=== PATIENT | male | born 1970 | race Caucasian/White ===

== ENCOUNTER 2018-12-27 07:34 | Day surgery (SDC) | payer MEDICAID ==
[2018-12-23 15:03] VITALS: BMI 20.9
[~2018-12-27 07:34] MED LIST: LACTATED RINGERS 1,000 ML IV SCH; LIDOCAINE 1% 20 ML VIAL (10MG/ML) FOR IV START INTRADERMA PRN
[2018-12-27 07:58] VITALS: TEMP 98
[2018-12-27] MEDS ORDERED: LIDOCAINE 1% 20 ML VIAL (10MG/ML) FOR IV START INTRADERMA ONE (07:58)
[2018-12-27] MEDS ORDERED: LACTATED RINGERS 1,000 ML IV ONE (07:58)
[2018-12-27] MEDS ORDERED: PROPOFOL 10 MG/ML 20 ML VIAL IV ONE (08:22)
[2018-12-27] MEDS ORDERED: LIDOCAINE 1% INJ 10MG/ML (20 ML MDV) ONE (08:22)
--- NOTE | 2018-12-27 08:48 | P.PCN ---
Date of Procedure: 12/27/18 Procedure(s) Performed: Procedure: Total colonoscopy. Preoperative diagnosis: Positive cologuard test. Postoperative diagnosis: Sigmoid diverticulosis with no evidence of acute diverticulitis, strictures, polyps or cancer. Preparation: HalfLytely prep. Sedation: Was provided by anesthesia. Brief clinical history: The patient is a 48-year-old male who is scheduled for this evaluation because of positive cologuard test. His prior exam was 5 years ago. There is family history of colon cancer in his father who passed at age 72. The patient has no abdominal complaints, bleeding or anemia. Procedure: With the patient on his left lateral decubitus position and after informed consent and adequate sedation, the perianal area was inspected and it did not show any fissures or fistulas. There were no masses felt on digital rectal examination. The Olympus CFH 190L video colonoscope was then inserted in the rectum in the usual fashion and advanced to the cecum. There were multiple diverticular orifices seen scattered the sigmoid with no evidence of acute diverticulitis or strictures. No polyps or tumors were seen. I retroflexed the endoscope in the rectum before the endoscope was withdrawn.Low-grade internal hemorrhoids were noted with no evidence of bleeding. The patient tolerated the procedure well. Plan: The patient was reassured. Discussed dietary measures. He will follow up with you as planned and I recommended repeat exam in 5 years.
[2018-12-27 09:25] VITALS: BP 116/79; PULSE 88; RESP 15
== END 2018-12-27 09:25 | disposition home or self-care (01) ==
LOC: ORWHC2ENDO 07:34
DX: R19.5 Other fecal abnormalities (principal); K57.30 Diverticulosis of large intestine without perforation or abscess without bleeding; K64.8 Other hemorrhoids; Z80.0 Family history of malignant neoplasm of digestive organs; Z88.0 Allergy status to penicillin; I10 Essential (primary) hypertension; J45.909 Unspecified asthma, uncomplicated; F17.200 Nicotine dependence, unspecified, uncomplicated; Z79.899 Other long term (current) drug therapy
CPT/HCPCS: 45378; J2001; J2704

== ENCOUNTER → 2020-01-27 | Outpatient (CLI) | payer OTHER ==
--- NOTE | 2020-01-27 10:50 | US ---
EXAMINATION TYPE: US liver DATE OF EXAM: 01/27/2020 COMPARISON: NONE CLINICAL HISTORY: R74.8 Abn liver enzymes. Elevated liver enzymes EXAM MEASUREMENTS: Liver Length: 15.0 cm Gallbladder Wall: 0.2 cm CBD: 0.7 cm Right Kidney: 11.2 x 4.9 x 5.2 cm Pancreas: wnl Liver: attenuating, increased echogenicity Gallbladder: wnl Evidence for sonographic Lynn's sign: no CBD: Perhaps minimally dilated Right Kidney: 2 cysts seen, superior pole 2.5cm and inferior pole 1.8cm No suspicious intrahepatic ductal dilatation. Heterogeneous hyperechoic appearance of liver makes sherice luation for focal masses suboptimal. IMPRESSION: Heterogeneous hyperechoic appearance of liver could be on basis of diffuse fatty infiltra tion and/or underlying hepatocellular disease. Consider US elastography and/or random sampling to fur ther evaluate.
== END | disposition home or self-care (01) ==
LOC: RADUSWWP 10:07
PROVIDERS: ATTEND Family Medicine
DX: R74.8 Abnormal levels of other serum enzymes (principal)
CPT/HCPCS: 76705

== ENCOUNTER → 2020-05-16 | Outpatient (CLI) | payer OTHER ==
--- NOTE | 2020-05-28 13:34 | ECHOF ---
Referral Reason:F10.10 alcohol abuse MEASUREMENTS -------- HEIGHT: 167.6 cm WEIGHT: 59.0 kg BP: RVIDd: 3.5 cm (< 3.3) IVSd: 1.2 cm (0.6 - 1.1) LVIDd: 3.0 cm (3.9 - 5.3) LVPWd: 1.2 cm (0.6 - 1.1) IVSs: 1.3 cm LVIDs: 2.1 cm LVPWs: 1.7 cm LA Diam: 3.6 cm (2.7 - 3.8) LAESV Index (A-L): 15.56 ml/m Ao Diam: 3.1 cm (2.0 - 3.7) AV Cusp: 2.2 cm (1.5 - 2.6) MV EXCURSION: 19.132 mm (> 18.000) MV EF SLOPE: 116 mm/s (70 - 150) EPSS: 0.5 cm MV E Nathan: 0.67 m/s MV DecT: 270 ms MV A Nathan: 0.67 m/s MV E/A Ratio: 1.00 RAP: 5.00 mmHg RVSP: 26.80 mmHg FINDINGS -------- This was a technically adequate study. The left ventricular size is normal. There is mild concentric left ventricular hypertrophy. Overa ll left ventricular systolic function is normal with, an EF between 55 - 60 %. The diastolic fillin g pattern is normal for the age of the patient 9.48. The right ventricle is mildly enlarged. Normal LA size by volume 22+/-6 ml/m2. The right atrial size is normal. Interatrial and interventricular septum intact. There is no evidence of aortic regurgitation. There is no evidence of aortic stenosis. No mitral regurgitation. Mild tricuspid regurgitation present. There is no evidence of pulmonary hypertension. The right v entricular systolic pressure, as measured by Doppler, is 26.80mmHg. There is no pulmonic regurgitation present. The aortic root size is normal. Normal inferior vena cava with normal inspiratory collapse consistent with estimated right atrial pre ssure of 5 mmHg. There is no pericardial effusion. CONCLUSIONS -------- 1. The left ventricular size is normal. 2. There is mild concentric left ventricular hypertrophy. 3. Overall left ventricular systolic function is normal with, an EF between 55 - 60 %. 4. The diastolic filling pattern is normal for the age of the patient 9.48 5. The right ventricle is mildly enlarged. 6. Mild tricuspid regurgitation present. MANUFACTURING DIRECTOR: Phyllis Mcneil RDCS
== END | disposition home or self-care (01) ==
LOC: RADECHMAIN 08:29
PROVIDERS: ATTEND Family Medicine
DX: I07.1 Rheumatic tricuspid insufficiency (principal); F10.10 Alcohol abuse, uncomplicated
CPT/HCPCS: 93306

== ENCOUNTER → 2020-11-20 | Outpatient (CLI) | payer OTHER ==
[2020-11-20 11:34] LABS: African American GFR (CKD) >90 (>60 ml/min/1.73 sqM); Blood Urea Nitrogen 5 mg/dL (9-20); Non-African American GFR(CKD) >90 (>60 ml/min/1.73 sqM)
--- NOTE | 2020-11-20 14:59 | CT ---
EXAMINATION TYPE: CT abdomen pelvis w con DATE OF EXAM: 11/20/2020 COMPARISON: None INDICATION: Generalized pain with foul smelling urine. DLP: 416.7 mGycm, Automated exposure control for dose reduction was used. CONTRAST: 100 mL of Isovue 300. Study performed with Oral Contrast TECHNIQUE: Axial images were obtained from above the diaphragm to the pubic rami in the axial plane a t 5 mm thick sections. Reconstructed images are reviewed on the computer in the coronal plane. FINDINGS: Limited CT sections are obtained the lung bases. The lung bases are clear. CT ABDOMEN: Liver: Normal Spleen: Normal Pancreas: Normal Adrenal glands: The adrenal glands are normal. Gallbladder: Normal Kidneys: No masses are evident. No hydronephrosis is present. There is a 2.4 cm cyst in the anterio r right kidney measuring 9 Hounsfield units. There is a 2.3 cm cyst outer lower pole right kidney oly suring 13 Hounsfield units. Delayed images were obtained through the kidneys, which remain unremarka ble. Aorta: Vascular calcification is within the aorta. Inferior vena cava: Normal. CT PELVIS: Scattered diverticuli to the sigmoid colon. No acute inflammatory changes to suggest acute diverticul itis is evident. There are loops of bowel which are incompletely distended or lack oral contrast limi ting their evaluation. Perirectal wall thickening posterior to the prostate and inferior to the urinary bladder may be prese nt. Loop of bowel or abscess could be considered. A fistula formation at this level cannot be exclude d on the basis of this examination. Appendix: Normal as visualized. Urinary bladder: Normal. Genitourinary structures: Prostate appears normal. Osseous structures: No suspicious lytic or sclerotic lesions. IMPRESSIONS: 1. Thickening of the rectal wall posterior to the prostate and inferior urinary bladder. Fistula fo rmation this level cannot be excluded. 2. Simple appearing right renal cysts. 3. Diverticulosis sigmoid colon without evidence of acute diverticulitis at the sigmoid level.
== END | disposition home or self-care (01) ==
LOC: RADCTMAIN 10:45
PROVIDERS: ATTEND Urology
DX: N28.1 Cyst of kidney, acquired (principal); K57.30 Diverticulosis of large intestine without perforation or abscess without bleeding
CPT/HCPCS: 82565; 84520; 74177; 36415; Q9967

== ENCOUNTER 2020-11-29 00:33 | Emergency (ER) | payer OTHER ==
[2020-11-29] MEDS ORDERED: ONDANSETRON 4 MG/2 ML VIAL IVP STA (01:14)
[2020-11-29] MEDS ORDERED: MORPHINE SULFATE 4 MG/ML SYRINGE IVP STA (01:14)
[2020-11-29] MEDS ORDERED: SODIUM CHLORIDE 0.9% 1,000 ML IV ONE (01:50)
[2020-11-29 01:52] VITALS: RESP 18
[2020-11-29 02:09] LABS: INR 1.2 (<1.2); Partial Thromboplastin Time 27.2 sec (22.0-30.0); Prothrombin Time 12.3 sec (9.0-12.0)
[2020-11-29 02:13] LABS: Basophils % (A) 0 %; Eosinophils % (A) 0 %; HCT 34.2 % (39.0-53.0); HGB 11.9 gm/dL (13.0-17.5); Lymphocytes # (A) 3.2 k/uL (1.0-4.8); Lymphocytes % (A) 36 %; MCH 36.6 pg (25.0-35.0); MCHC 34.8 g/dL (31.0-37.0); MCV 105.2 fL (80.0-100.0); Macrocytosis Slight; Mean Platelet Volume 6.9; Monocytes # (A) 0.5 k/uL (0-1.0); Monocytes % (A) 5 %; Neutrophils # (A) 5.1 k/uL (1.3-7.7); Platelet Count 145 k/uL (150-450); RBC 3.25 m/uL (4.30-5.90); RDW 12.4 % (11.5-15.5); WBC 8.8 k/uL (3.8-10.6)
--- NOTE | 2020-11-29 02:24 | CT ---
EXAM: CT Head Without Intravenous Contrast CLINICAL HISTORY: ITS.REASON CT Reason: Head injury; headache TECHNIQUE: Axial computed tomography images of the head/brain without intravenous contrast. CTDI is 26.885 mGy and DLP is 691.7 mGy-cm. This CT exam was performed using one or more of the following dose reduction techniques: automated exposure control, adjustment of the mA and/or kV according to patient size, and/or use of iterative reconstruction technique. COMPARISON: No relevant prior studies available. FINDINGS: Brain: No acute infarct, hemorrhage, mass or edema. Chronic small vessel ischemic disease and senescent changes. Ventricles: Unremarkable. No ventriculomegaly. Bones/joints: No acute osseous abnormality. Soft tissues: Posterior right scalp soft tissue swelling, likely posttraumatic. Sinuses: Mild mucosal thickening the paranasal sinuses. Mastoid air cells: Unremarkable as visualized. IMPRESSION: 1. No acute infarct, hemorrhage, mass or edema. 2. Posterior right scalp soft tissue swelling, likely posttraumatic. EXAM: CT Cervical Spine Without Intravenous Contrast CLINICAL HISTORY: ITS.REASON CT Reason: Head injury; headache TECHNIQUE: Axial computed tomography images of the cervical spine without intravenous contrast. CTDI is 26.885 mGy and DLP is 691.7 mGy-cm. This CT exam was performed using one or more of the following dose reduction techniques: automated exposure control, adjustment of the mA and/or kV according to patient size, and/or use of iterative reconstruction technique. COMPARISON: No relevant prior studies available. FINDINGS: Vertebrae: No acute fracture or traumatic malalignment. Discs/spinal canal/neural foramina: No acute findings. No significant spinal canal or neuroforaminal stenosis. Soft tissues: Unremarkable. Vasculature: Vascular calcifications. IMPRESSION: No acute fracture or traumatic malalignment.
--- NOTE | 2020-11-29 02:32 | CT ---
EXAM: CT Lumbar Spine With Intravenous Contrast CLINICAL HISTORY: ITS.REASON CT Reason: low back pain TECHNIQUE: Axial computed tomography images of the lumbar spine with intravenous contrast. CTDI is 0.085, 0.199, 7.6, 8.1 mGy and DLP is 891.5 mGy-cm. This CT exam was performed using one or more of the following dose reduction techniques: automated exposure control, adjustment of the mA and/or kV according to patient size, and/or use of iterative reconstruction technique. COMPARISON: No relevant prior studies available. FINDINGS: Vertebrae: Acute fracture of the right L2, L3 and L4 transverse process. Discs/spinal canal/neural foramina: Degenerative changes most pronounced at L5-S1 where there is new complete disc height loss ex vacuo phenomenon. Soft tissues: Unremarkable. IMPRESSION: Acute fracture of the right L2, L3 and L4 transverse process. <MYCVCSECTION> Communications: 11/29/20 02:50 Verify Receipt Verified receipt with tech; no f/u questions
--- NOTE | 2020-11-29 02:46 | CT ---
EXAM: CT Chest With Intravenous Contrast CLINICAL HISTORY: ITS.REASON CT Reason: Fall left rib pain, right flank, right low back TECHNIQUE: Axial computed tomography images of the chest with intravenous contrast. CTDI is 7.79 mGy and DLP is 538.7 mGy-cm. This CT exam was performed using one or more of the following dose reduction techniques: automated exposure control, adjustment of the mA and/or kV according to patient size, and/or use of iterative reconstruction technique. COMPARISON: No relevant prior studies available. FINDINGS: Lungs: No pulmonary embolus. Pleural space: Unremarkable. No pneumothorax. No significant effusion. Heart: Unremarkable. No cardiomegaly. No significant pericardial effusion. Bones/joints: Acute fracture of the anterior right sixth, seventh and possibly posterior 11th ribs, likely posttraumatic. No dislocation. Soft tissues: Unremarkable. Vasculature: No thoracic aortic dissection or aneurysm. Lymph nodes: Unremarkable. IMPRESSION: 1. No pulmonary embolus. 2. Acute fracture of the anterior right sixth, seventh and possibly posterior 11th ribs, likely posttraumatic. EXAM: CT Abdomen and Pelvis With Intravenous Contrast CLINICAL HISTORY: ITS.REASON CT Reason: Fall left rib pain, right flank, right low back TECHNIQUE: Axial computed tomography images of the abdomen and pelvis with intravenous contrast. CTDI is 8.185 mGy and DLP is 352.8 mGy-cm. This CT exam was performed using one or more of the following dose reduction techniques: automated exposure control, adjustment of the mA and/or kV according to patient size, and/or use of iterative reconstruction technique. COMPARISON: No relevant prior studies available. FINDINGS: Lung bases: Unremarkable. ABDOMEN: Liver: Hepatic steatosis. Gallbladder and bile ducts: Unremarkable. Pancreas: Unremarkable. Spleen: Unremarkable. Adrenals: Unremarkable. Kidneys and ureters: Probable cysts within the right kidney. Stomach and bowel: Colonic diverticulosis. PELVIS: Appendix: Appendix is unremarkable. Bladder: Unremarkable. Reproductive: Unremarkable as visualized. ABDOMEN and PELVIS: Intraperitoneal space: Unremarkable. Bones/joints: Acute fracture of the right L2, L3 and L4 transverse process. No dislocation. Soft tissues: Unremarkable. Vasculature: Unremarkable. Lymph nodes: Unremarkable. IMPRESSION: Acute fracture of the right L2, L3 and L4 transverse process. <MYCVCSECTION> Communications: 11/29/20 02:50 Verify Receipt Verified receipt with tech; no f/u questions
[2020-11-29 03:01] LABS: ALT 66 U/L (4-49); AST 168 U/L (17-59); African American GFR (CKD) >90 (>60 ml/min/1.73 sqM); Albumin 4.2 g/dL (3.5-5.0); Alkaline Phosphatase 102 U/L (38-126); Anion Gap 13 mmol/L; Blood Urea Nitrogen 7 mg/dL (9-20); Calcium 8.9 mg/dL (8.4-10.2); Carbon Dioxide 22 mmol/L (22-30); Chloride 91 mmol/L (98-107); Glucose 111 mg/dL (74-99); Non-African American GFR(CKD) >90 (>60 ml/min/1.73 sqM); Potassium 4.2 mmol/L (3.5-5.1); Sodium 126 mmol/L (137-145); Total Bilirubin 0.7 mg/dL (0.2-1.3); Total Protein 7.6 g/dL (6.3-8.2)
[2020-11-29 03:09] LABS: Alcohol 285 mg/dL
--- NOTE | 2020-11-29 03:36 | ED ---
General Adult HPI - General Chief complaint: Head Injury Stated complaint: Fall, head injury Time Seen by Provider: 11/29/20 01:05 Source: patient Mode of arrival: ambulatory Limitations: no limitations - History of Present Illness Initial comments: 50-year-old male patient presents to the emergency department today for evaluation after experiencing a fall. Fall occurred about 3 hours ago. Patient states he was coming down the stairs missed a step and fell backwards hitting his head and down about 3 steps. States he is having left rib pain, low back pain, and has a bump on his head. Denies losing consciousness with the fall. Does report headache. Denies any neck pain. Denies any blurred or double vision. Denies any vomiting. He denies any radiation of the low back pain down his legs. Denies numbness or tingling to the lower extremities. Denies any saddle anesthesia or loss of bowel or bladder control. Patient does admit to drinking alcohol today, states his last drink was around 3 hours ago. Patient denies any chest pain, shortness of breath, dizziness, weakness, abdominal pain, or difficulties with bowel movements or urination. - Related Data Home Medications Medication Instructions Recorded Confirmed Multivitamin/Iron/Folic Acid 1 each PO DAILY 12/23/18 12/23/18 [Centrum Adults Tablet] Propranolol [Inderal] 30 mg PO TID 12/23/18 12/23/18 Thiamine HCl [Vitamin B-1] 100 mg PO DAILY 12/23/18 12/23/18 cloNIDine HCL [Catapres] 0.1 mg PO TID 12/23/18 12/23/18 Previous Rx's Medication Instructions Recorded HYDROcodone/APAP 5-325MG [Shelbiana 1 tab PO Q6HR PRN 3 Days #12 tab 11/29/20 5-325] Allergies Allergy/AdvReac Type Severity Reaction Status Date / Time Penicillins Allergy Unknown Verified 11/29/20 00:44 Review of Systems ROS Statement: Those systems with pertinent positive or pertinent negative responses have been documented in the HPI. ROS Other: All systems not noted in ROS Statement are negative. Past Medical History Past Medical History: Asthma, Hypertension Additional Past Medical History / Comment(s): asthma as a child. pt states had positive cologuard test History of Any Multi-Drug Resistant Organisms: None Reported Past Surgical History: Orthopedic Surgery Additional Past Surgical History / Comment(s): lt knee surgery, rt shoulder reconstructed Past Anesthesia/Blood Transfusion Reactions: No Reported Reaction Past Psychological History: No Psychological Hx Reported Past Alcohol Use History: Daily Past Drug Use History: None Reported - Past Family History Mother Family Medical History: Cancer Additional Family Medical History / Comment(s): liver cancer Father Family Medical History: Cancer Additional Family Medical History / Comment(s): colon cancer General Exam Limitations: no limitations General appearance: alert, in no apparent distress, other (Physical well- developed, well-nourished adult male patient in no acute distress. Vital signs upon presentation are temperature 98.2F, pulse 93, respirations 16, blood pressure 112/77, pulse ox 97% on room air.) Head exam: Present: other (There is hematoma noted to the right posterior p arietal scalp.) Eye exam: Present: normal appearance, PERRL, EOMI. Absent: scleral icterus, conjunctival injection, nystagmus, periorbital swelling ENT exam: Present: normal exam, normal oropharynx, mucous membranes moist Neck exam: Present: normal inspection, full ROM, other (Nontender, no step-off, no deformity to firm midline palpation of the posterior cervical spine. Full range of motion without pain or limitation.). Absent: tenderness, meningismus, lymphadenopathy Respiratory exam: Present: normal lung sounds bilaterally. Absent: respiratory distress, wheezes, rales, rhonchi, stridor Cardiovascular Exam: Present: regular rate, normal rhythm, normal heart sounds. Absent: systolic murmur, diastolic murmur, rubs, gallop, clicks GI/Abdominal exam: Present: soft, normal bowel sounds. Absent: distended, tenderness, guarding, rebound, rigid Extremities exam: Present: normal inspection, full ROM, normal capillary refill. Absent: tenderness, pedal edema, joint swelling, calf tenderness Back exam: Present: normal inspection, vertebral tenderness (Lower lumbar), other (There is large hematoma noted to the right low back, tender to touch) Neurological exam: Present: alert, oriented X3, CN II-XII intact Expanded Speech: Present: fluid speech Cranial nerves: EOM's Intact: Normal, Nystagmus: Normal Motor strength exam: RUE: 5, LUE: 5, RLE: 5, LLE: 5 Psychiatric exam: Present: normal affect, normal mood Skin exam: Present: warm, dry, intact, normal color. Absent: rash Course Vital Signs 11/29/20 11/29/20 11/29/20 00:40 01:45 01:50 Temperature 98 F Pulse Rate 93 78 81 Respiratory 16 18 18 Rate Blood Pressure 112/77 77/51 88/55 O2 Sat by Pulse 97 94 L 95 Oximetry 11/29/20 11/29/20 11/29/20 01:54 02:27 03:00 Temperature Pulse Rate 85 87 91 Respiratory 18 18 18 Rate Blood Pressure 99/61 126/82 133/82 O2 Sat by Pulse 94 L 98 97 Oximetry Medical Decision Making - Medical Decision Making 50-year-old male patient presents to the emergency department today for evaluat ion after experiencing a fall. He is reporting headache, back pain, and rib pain. Physical examination did reveal significant sized hematoma to the right low back, lower lumbar tenderness, and rib tenderness. Lungs are clear to auscultation. CT brain and C-spine showed a scalp hematoma and no other injury. CT chest abdomen and pelvis did show evidence for left-sided rib fractures as well as fractures to the lumbar spine as documented. Patient will be discharged home with incentive spirometry and pain medication. He is instructed to follow- up with his primary care physician in one to 2 days and orthopedics as soon as possible. He is given phone number for follow-up. We did discuss coughing and deep breathing exercises as well as incentive spirometer use to prevent pneumonia. He is started to apply ice compresses to the right low back. Return parameters were discussed in detail. He verbalizes understanding and agrees with this plan. Case discussed extensively and in great detail with my attending Dr. Nick who recommended discharge. - Lab Data Result diagrams: 11/29/20 01:33 11/29/20 01:33 Lab Results 11/29/20 11/29/20 11/29/20 Range/Units 01:33 01:33 01:33 WBC 8.8 (3.8-10.6) k/uL RBC 3.25 L (4.30-5.90) m/uL Hgb 11.9 L (13.0-17.5) gm/dL Hct 34.2 L (39.0-53.0) % MCV 105.2 H (80.0-100.0) fL MCH 36.6 H (25.0-35.0) pg MCHC 34.8 (31.0-37.0) g/dL RDW 12.4 (11.5-15.5) % Plt Count 145 L (150-450) k/uL MPV 6.9 Lymphocytes % 36 % Monocytes % 5 % Eosinophils % 0 % Basophils % 0 % Neutrophils # 5.1 (1.3-7.7) k/uL Lymphocytes # 3.2 (1.0-4.8) k/uL Monocytes # 0.5 (0-1.0) k/uL Eosinophils # 0.0 (0-0.7) k/uL Basophils # 0.0 (0-0.2) k/uL Macrocytosis Slight PT 12.3 H (9.0-12.0) sec INR 1.2 H (<1.2) APTT 27.2 (22.0-30.0) sec Sodium 126 L (137-145) mmol/L Potassium 4.2 (3.5-5.1) mmol/L Chloride 91 L (98-107) mmol/L Carbon Dioxide 22 (22-30) mmol/L Anion Gap 13 mmol/L BUN 7 L (9-20) mg/dL Creatinine 0.55 L (0.66-1.25) mg/dL Est GFR (CKD-EPI)AfAm >90 (>60 ml/min/1.73 sqM) Est GFR (CKD-EPI)NonAf >90 (>60 ml/min/1.73 sqM) Glucose 111 H (74-99) mg/dL Calcium 8.9 (8.4-10.2) mg/dL Total Bilirubin 0.7 (0.2-1.3) mg/dL AST 168 H (17-59) U/L ALT 66 H (4-49) U/L Alkaline Phosphatase 102 (38-126) U/L Troponin I (0.000-0.034) ng/mL Total Protein 7.6 (6.3-8.2) g/dL Albumin 4.2 (3.5-5.0) g/dL Serum Alcohol 285 H* mg/dL Blood Type Blood Type Recheck Bld Type Recheck Status Antibody Screen Spec Expiration Date 11/29/20 11/29/20 Range/Units 01:33 01:33 WBC (3.8-10.6) k/uL RBC (4.30-5.90) m/uL Hgb (13.0-17.5) gm/dL Hct (39.0-53.0) % MCV (80.0-100.0) fL MCH (25.0-35.0) pg MCHC (31.0-37.0) g/dL RDW (11.5-15.5) % Plt Count (150-450) k/uL MPV Lymphocytes % % Monocytes % % Eosinophils % % Basophils % % Neutrophils # (1.3-7.7) k/uL Lymphocytes # (1.0-4.8) k/uL Monocytes # (0-1.0) k/uL Eosinophils # (0-0.7) k/uL Basophils # (0-0.2) k/uL Macrocytosis PT (9.0-12.0) sec INR (<1.2) APTT (22.0-30.0) sec Sodium (137-145) mmol/L Potassium (3.5-5.1) mmol/L Chloride (98-107) mmol/L Carbon Dioxide (22-30) mmol/L Anion Gap mmol/L BUN (9-20) mg/dL Creatinine (0.66-1.25) mg/dL Est GFR (CKD-EPI)AfAm (>60 ml/min/1.73 sqM) Est GFR (CKD-EPI)NonAf (>60 ml/min/1.73 sqM) Glucose (74-99) mg/dL Calcium (8.4-10.2) mg/dL Total Bilirubin (0.2-1.3) mg/dL AST (17-59) U/L ALT (4-49) U/L Alkaline Phosphatase (38-126) U/L Troponin I <0.012 (0.000-0.034) ng/mL Total Protein (6.3-8.2) g/dL Albumin (3.5-5.0) g/dL Serum Alcohol mg/dL Blood Type A Positive Blood Type Recheck No Previous Record Bld Type Recheck Status CABO Indicated Antibody Screen NEGATIVE Spec Expiration Date 12/02/20202313 - Radiology Data Radiology results: report reviewed, image reviewed CT chest abdomen and pelvis was obtained with contrast. Report was reviewed in its entirety. Impression by Dr. Santana shows no pulmonary embolus. Acute fracture of the anterior right sixth, seventh and possibly posterior 11th ribs. Likely posttraumatic. Acute fracture of the right L2, L3, and L4 transverse process. CT head and neck is obtained. Report was reviewed in its entirety. Impression by Dr. Calderon shows no acute infarct, hemorrhage, mass, or edema. Posterior right scalp soft tissue swelling, likely post traumatic. No acute fracture or traumatic malalignment and cervical spine Disposition Clinical Impression: Fracture of transverse process of lumbar vertebra, Left rib fracture Disposition: HOME SELF-CARE Condition: Good Instructions (If sedation given, give patient instructions): Rib Fracture (ED), Thoracolumbar Fracture (ED) Additional Instructions: Perform incentive spirometry 10 times an hour while awake, perform coughing and deep breathing. Splint the left ribs while doing so. Apply ice to the right low back several times daily for at least 20 minutes. Take pain medication as directed. Follow-up with the primary care physician for recheck in 1-2 days. Follow-up with agricultural specialist as soon as possible. Call in the morning for an appointment. Return to the emergency department for any new, worsening, or concerning symptoms. Prescriptions: HYDROcodone/APAP 5-325MG [Shelbiana 5-325] 1 tab PO Q6HR PRN 3 Days #12 tab PRN Reason: Pain Is patient prescribed a controlled substance at d/c from ED?: Yes When asked, does pt state using other controlled substances?: No If prescribed controlled substance>3 days was MAPS reviewed?: Prescribed <3 Days If opioid is for acute pain is fill amount 7 days or less?: Yes If Rx opioid, was Start Talking consent form obtained?: Yes Referrals: Mark Greene MD [Primary Care Provider] - 1-2 days Ruddy Fritz DO [Doctor of Osteopathic Medicine] - 1-2 days Time of Disposition: 03:52
[2020-11-29] MEDS ORDERED: ACET/COD 300 MG/30 MG STARTER PACK 6 TAB BTL PO STA (03:47)
[2020-11-29 03:56] LABS: Appearance,Urine Clear (Clear); Bilirubin,Urine Negative (Negative); Blood,Urine Large (Negative); Color,Urine Light Yellow; Glucose,Urine (UA) Negative (Negative); Hyaline Casts,Urine 11 /lpf (0-2); Ketones,Urine Negative (Negative); Leukocyte Esterase,Urine Small (Negative); Mucus,Urine Rare /hpf; Nitrite,Urine Negative (Negative); PH, Urine 6.5 (5.0-8.0); Protein,Urine Negative (Negative); RBC,Urine 87 /hpf (0-5); Squamous Epithelial Cell,Urine <1 /hpf (0-4); Urobilinogen,Urine <2.0 mg/dL (<2.0); WBC,Urine 68 /hpf (0-5)
[2020-11-29 04:21] LABS: Cocaine Screen,Urine Not Detected (NotDetected); Opiate Screen,Urine Detected (NotDetected); Phencyclidine Screen,Urine Not Detected (NotDetected); Urn Cannabinoid Scrn Not Detected (NotDetected)
[2020-11-29 04:22] LABS: Amphetamine Screen,Urine Not Detected (NotDetected); Barbiturate Screen,Urine Detected (NotDetected); Benzodiazepines Screen,Urine Not Detected (NotDetected); Methadone Screen, Urine Not Detected (NotDetected); Oxycodone Screen, Urine Not Detected (NotDetected); Tricyclic Antidepressant,Urine Not Detected (NotDetected)
[2020-11-29 04:26] VITALS: BP 120/82; PULSE 89; TEMP 97.8
== END 2020-11-29 04:23 | disposition home or self-care (01) ==
LOC: EC 00:33
DX: S22.32XA Fracture of one rib, left side, initial encounter for closed fracture (principal); S32.049A Unspecified fracture of fourth lumbar vertebra, initial encounter for closed fracture; S00.03XA Contusion of scalp, initial encounter; I10 Essential (primary) hypertension; Z79.899 Other long term (current) drug therapy; Z88.0 Allergy status to penicillin; W10.9XXA Fall (on) (from) unspecified stairs and steps, initial encounter
CPT/HCPCS: 36415; 86900; 86901; 80053; 84484; 85025; 85610; 85730; 86850; 81001; 80306; 80320; 72125; 72132; 70450; 71260; 74177; 99284; 96374; 96375; 96361; J2270; J2405; Q9967

== ENCOUNTER 2020-12-06 09:57 | Day surgery (SDC) | payer OTHER ==
[2020-12-05 08:50] VITALS: BMI 21.7
[~2020-12-06 09:57] MED LIST changes: +LIDOCAINE 1% (10MG/ML) FOR IV START INTRADERMA PRN; -LIDOCAINE 1% 20 ML VIAL (10MG/ML) FOR IV START INTRADERMA PRN
[2020-12-06 10:35] VITALS: RESP 16; TEMP 98.3
[2020-12-06] MEDS ORDERED: LIDOCAINE 1% INJ 10MG/ML (20 ML MDV) ONE (10:47)
[2020-12-06] MEDS ORDERED: PROPOFOL 10 MG/ML 20 ML VIAL IV ONE (10:47)
--- NOTE | 2020-12-06 10:52 | P.GSHP ---
History of Present Illness H&P Date: 12/06/20 Chief Complaint: Colovesical fistula This is a 50-year-old male received diagnosed with colovesical fistula. Patient presents today for colonoscopy. Past Medical History Past Medical History: Asthma, Hypertension Additional Past Medical History / Comment(s): asthma as a child. pt states had positive cologuard test. RECENT FALL-FX L2,L3-L4, FX 3 RIBS AND HAS HEMATOMA TO RT SIDE OF HEAD History of Any Multi-Drug Resistant Organisms: None Reported Past Surgical History: Orthopedic Surgery Additional Past Surgical History / Comment(s): lt knee surgery, rt shoulder reconstructed Past Anesthesia/Blood Transfusion Reactions: No Reported Reaction Smoking Status: Current every day smoker - Past Family History Mother Family Medical History: Cancer Additional Family Medical History / Comment(s): liver cancer Father Family Medical History: Cancer Additional Family Medical History / Comment(s): colon cancer Medications and Allergies Home Medications Medication Instructions Recorded Confirmed Type Multivitamin/Iron/Folic Acid 1 each PO DAILY 12/23/18 12/05/20 History [Centrum Adults Tablet] Thiamine HCl [Vitamin B-1] 100 mg PO DAILY 12/23/18 12/05/20 History cloNIDine HCL [Catapres] 0.1 mg PO TID 12/23/18 12/05/20 History HYDROcodone/APAP 5-325MG [[place] 1 tab PO Q6HR PRN 3 Days #12 tab 11/29/20 12/05/20 Rx 5-325] Lisinopril [Prinivil] 10 mg PO DAILY 12/05/20 12/06/20 History Allergies Allergy/AdvReac Type Severity Reaction Status Date / Time Penicillins Allergy Unknown Verified 12/06/20 10:20 Childhood Surgical - Exam Vital Signs Temp Pulse Resp BP Pulse Ox 98.3 F 98 16 122/80 98 12/06/20 10:27 12/06/20 10:27 12/06/20 10:27 12/06/20 10:27 12/06/20 10:27 - General well developed, well nourished, no distress - Eyes PERRL - ENT normal pinna - Neck no masses - Respiratory normal expansion - Cardiovascular Rhythm: regular - Abdomen Abdomen: soft, non tender Assessment and Plan Assessment: History of colovesical showed. Patient will undergo colonoscopy today.
--- NOTE | 2020-12-06 11:01 | P.OP ---
Date of Procedure: 12/06/20 Preoperative Diagnosis: Colovesical fistula Postoperative Diagnosis: Diverticulitis Procedure(s) Performed: Colonoscopy Anesthesia: MAC Surgeon: Abdirizak Ellington Pathology: none sent Condition: stable Disposition: PACU Description of Procedure: The patient's placed on the endoscopy table in the lateral position. He received IV sedation. Digital rectal exam was performed which revealed no abnormalities. Possible colonoscope was then placed patient anus and passed with colon. The colonoscope could not be passed beyond the sigmoid colon secondary to diverticulosis. The colon was quite firm due to chronic inflammation. At this point scope withdrawn. Multiple diverticula were seen. The colonoscopy showed Visualized. The scope was brought back the rectum and this appeared normal. Scope was withdrawn for patient.
[2020-12-06 11:17] VITALS: BP 123/81; PULSE 109
== END 2020-12-06 11:38 | disposition home or self-care (01) ==
LOC: ORWHC2ENDO 09:57
PROVIDERS: ATTEND Surgery
DX: K57.30 Diverticulosis of large intestine without perforation or abscess without bleeding (principal); K52.9 Noninfective gastroenteritis and colitis, unspecified; N32.1 Vesicointestinal fistula; J45.909 Unspecified asthma, uncomplicated; R19.5 Other fecal abnormalities; I10 Essential (primary) hypertension; S32.029D Unspecified fracture of second lumbar vertebra, subsequent encounter for fracture with routine healing; S32.039D Unspecified fracture of third lumbar vertebra, subsequent encounter for fracture with routine healing; S32.049D Unspecified fracture of fourth lumbar vertebra, subsequent encounter for fracture with routine healing; S22.49XD Multiple fractures of ribs, unspecified side, subsequent encounter for fracture with routine healing; S00.93XD Contusion of unspecified part of head, subsequent encounter; W19.XXXD Unspecified fall, subsequent encounter; F17.200 Nicotine dependence, unspecified, uncomplicated; Z98.890 Other specified postprocedural states; Z80.0 Family history of malignant neoplasm of digestive organs; Z79.899 Other long term (current) drug therapy; Z88.0 Allergy status to penicillin
CPT/HCPCS: 45330; J2001; J2704; 45378

== ENCOUNTER → 2020-12-18 | Outpatient (CLI) | payer OTHER ==
[2020-12-18 11:44] LABS: HCT 36.1 % (39.0-53.0); HGB 12.3 gm/dL (13.0-17.5); MCH 37.3 pg (25.0-35.0); MCV 109.9 fL (80.0-100.0); Macrocytosis Marked; Mean Platelet Volume 7.3; Platelet Count 145 k/uL (150-450); RBC 3.29 m/uL (4.30-5.90); RDW 14.2 % (11.5-15.5)
[2020-12-18 11:53] LABS: Potassium 4.1 mmol/L (3.5-5.1)
== END | disposition home or self-care (01) ==
LOC: LABPAT 11:00
PROVIDERS: ATTEND Surgery
DX: Z01.812 Encounter for preprocedural laboratory examination (principal); K57.32 Diverticulitis of large intestine without perforation or abscess without bleeding
CPT/HCPCS: 36415; 80051; 85027

== ENCOUNTER 2020-12-24 05:59 | Inpatient (IN) | payer OTHER ==
[~2020-12-24 05:59] MED LIST changes: +ACETAMINOPHEN TAB 500 MG TAB PO PRN; +DEXAMETHASONE SOD PHOSPHATE 4 MG/ML 1 ML VIAL IV ONE; +HEPARIN SODIUM,PORCINE/PF 5,000 UNIT/0.5 ML SYRINGE SQ PRN; -LACTATED RINGERS 1,000 ML IV SCH; +ONDANSETRON 4 MG/2 ML VIAL IVP ONE; +metroNIDAZOLE-NS PMX 500 MG in SALINE 1 100ML.BAG IVPB PRN
[2020-12-24] MEDS ORDERED: cloNIDine HCL 0.1 MG TAB PO STA (06:39)
[2020-12-24] MEDS: LACTATED RINGERS 1,000 ML IV SCH ×2 (06:45→16:17)
[2020-12-24] MEDS ORDERED: MIDAZOLAM 2 MG/2 ML VIAL IVP ONE (07:16)
[2020-12-24] MEDS ORDERED: fentaNYL (PF) 50 MCG/ML 2 ML AMP IVP ONE (07:17)
[2020-12-24] MEDS ORDERED: LIDOCAINE 1% INJ 10MG/ML (20 ML MDV) ONE (07:48)
[2020-12-24] MEDS ORDERED: HEPARIN SODIUM,PORCINE 5,000 UNIT/ML 1 ML VIAL ONE (07:48)
[2020-12-24] MEDS ORDERED: GLYCOPYRROLATE 0.2 MG/ML 2 ML VIAL ONE (07:48)
[2020-12-24] MEDS ORDERED: fentaNYL (PF) 50 MCG/ML 2 ML AMP ONE (07:48)
[2020-12-24] MEDS ORDERED: PHENYLEPHRINE-0.9% NACL SYG 1,000 MCG/10 ML SYRINGE ONE (07:48)
[2020-12-24] MEDS ORDERED: PROPOFOL 10 MG/ML 20 ML VIAL IV ONE (07:48)
[2020-12-24] MEDS ORDERED: MIDAZOLAM 2 MG/2 ML VIAL ONE (07:48)
[2020-12-24] MEDS ORDERED: ROCURONIUM 10 MG/ML (5 ML VIAL) IV ONE (07:48)
[2020-12-24] MEDS ORDERED: NEOSTIGMINE 1 MG/ML 10 ML VIAL ONE (07:48)
[2020-12-24] MEDS ORDERED: SUCCINYLCHOLINE CHLORIDE 100 MG/5 ML SYR IV ONE (07:48)
[2020-12-24] MEDS ORDERED: NALOXONE 0.4 MG/ML 1 ML VIAL IV PRN (08:02)
[2020-12-24] MEDS ORDERED: LACTATED RINGERS 1,000 ML IV ONE ×3 (09:01→12:15)
[2020-12-24] MEDS: ROPIVACAINE 250 MG, HYDROMORPHONE (PF) 5 MG in SODIUM CHLORIDE 0.9% 200 ML EPIDURAL PRN ×3 (09:17→12:35)
--- NOTE | 2020-12-24 09:22 | P.GSHP ---
History of Present Illness H&P Date: 12/24/20 Chief Complaint: Diverticulitis This is a 50-year-old male with history of diverticulitis. Patient presents today for low anterior resection. Past Medical History Past Medical History: Asthma, Hypertension, Musculoskeletal Disorder Additional Past Medical History / Comment(s): asthma as a child. Hx positive cologuard. Diverticulitis. Varicose veins. Fall 11/29/20 w/ FX L2, L3, L4, & FX 3 Ribs; hematoma Rt side head healed. History of Any Multi-Drug Resistant Organisms: None Reported Past Surgical History: Orthopedic Surgery Additional Past Surgical History / Comment(s): lt knee surgery, rt shoulder reconstructed. Colonoscopy 12/06/20. Past Anesthesia/Blood Transfusion Reactions: No Reported Reaction Smoking Status: Current every day smoker - Past Family History Mother Family Medical History: Cancer Additional Family Medical History / Comment(s): liver cancer Father Family Medical History: Cancer Additional Family Medical History / Comment(s): colon cancer Medications and Allergies Home Medications Medication Instructions Recorded Confirmed Type Multivitamin/Iron/Folic Acid 1 each PO DAILY 12/23/18 12/24/20 History [Centrum Adults Tablet] Thiamine HCl [Vitamin B-1] 100 mg PO DAILY 12/23/18 12/24/20 History cloNIDine HCL [Catapres] 0.1 mg PO TID 12/23/18 12/24/20 History HYDROcodone/APAP 5-325MG [[place] 1 tab PO Q6HR PRN 3 Days #12 tab 11/29/20 12/24/20 Rx 5-325] Lisinopril [Prinivil] 10 mg PO DAILY 12/05/20 12/24/20 History Allergies Allergy/AdvReac Type Severity Reaction Status Date / Time Penicillins Allergy Unknown Verified 12/24/20 06:27 Childhood Surgical - Exam Vital Signs Temp Pulse Resp BP Pulse Ox 98.5 F 103 H 17 142/80 98 12/24/20 06:35 12/24/20 06:35 12/24/20 06:35 12/24/20 06:35 12/24/20 06:35 - General well developed, well nourished, no distress - Eyes PERRL - ENT normal pinna - Neck no masses - Respiratory normal expansion - Cardiovascular Rhythm: regular - Abdomen Abdomen: soft, non tender Assessment and Plan Assessment: Diverticulitis. We'll perform a low anterior section. Patient aware the risk of colostomy.
--- NOTE | 2020-12-24 09:27 | P.OP ---
Date of Procedure: 12/24/20 Preoperative Diagnosis: Diverticulitis Postoperative Diagnosis: Diverticulitis Procedure(s) Performed: low anterior resection Anesthesia: YANNI Surgeon: Abdirizak Ellington Estimated Blood Loss (ml): 25 Pathology: other (Sigmoid colon) Condition: stable Disposition: PACU Description of Procedure: DESCRIPTION OF PROCEDURE: The patient's placed on the operative table in supine position. He received general anesthesia. The abdomen was entered through a midline incision. The Bookwalter tract with wound. The sigmoid colon was visualized. There is extensive diverticular changes of the sigmoid colon. The sigmoid colon was adherent to the bladder. This point using sharp dissection the; was dissected free from the bladder. In the white line of Toldt was divided in the left colon and; was mobilized. An enterotomy is made and then the 25 mm EEA staple anvil was placed into the colon. The colon was then transected with a GI stapler. The enterotomy is closed with 3-0 GI silk suture. The anvil was driven through the staple line. The mesentery the bowel was divided using the Enseal device. The rectum was then transected using the contour stapler. Using the EEA stapler the colon anastomosis then created. The anastomosis was checked under air insufflation. There is no evidence of any extravasation. The abdomen was irrigated. There is no bleeding seen. The fascia is closed loop #1 PDS suture. Skin was closed with. Patient top she will was sent to recovery room in stable condition.
[2020-12-24] MEDS ORDERED: BENZOCAINE/MENTHOL LOZENG 1 EACH LOZENGE MUCOUS MEM PRN (09:30)
[2020-12-24] MEDS ORDERED: METOCLOPRAMIDE 5 MG/ML 2 ML VIAL IVP PRN (09:30)
[2020-12-24] MEDS ORDERED: ONDANSETRON 4 MG/2 ML VIAL IVP PRN (09:30)
[2020-12-24] MEDS ORDERED: fentaNYL (PF) 50 MCG/ML 2 ML AMP INTRATHECA ONE (10:18)
[2020-12-24] MEDS: HEPARIN SODIUM,PORCINE/PF 5,000 UNIT/0.5 ML SYRINGE SQ SCH ×2 (16:17→23:45)
--- NOTE | 2020-12-24 16:40 | P.CONS ---
History of Present Illness - Reason for Consult Consult date: 12/24/20 Medical management - History of Present Illness This is a 50-year-old white male who was admitted to the hospital diverticulitis and underwent surgical intervention with sigmoid colon surgical resection and colostomy placement. At the time of examination patient feels fine, no chest pain no shortness of breath. He has been nauseated with no vomiting. He past flatus but no bowel movement. No hematuria or dysuria. Patient's is at bedside. Review of Systems 10 systems reviewed, pertinent positive and negative findings as in HPI. No chest pain, positive for abdominal pain. Past Medical History Past Medical History: Asthma, Hypertension, Musculoskeletal Disorder Additional Past Medical History / Comment(s): asthma as a child. Hx positive cologuard. Diverticulitis. Varicose veins. Fall 11/29/20 w/ FX L2, L3, L4, & FX 3 Ribs; hematoma Rt side head healed. History of Any Multi-Drug Resistant Organisms: None Reported Past Surgical History: Orthopedic Surgery Additional Past Surgical History / Comment(s): lt knee surgery, rt shoulder re constructed. Colonoscopy 12/06/20. Past Anesthesia/Blood Transfusion Reactions: No Reported Reaction Smoking Status: Current every day smoker - Past Family History Mother Family Medical History: Cancer Additional Family Medical History / Comment(s): liver cancer Father Family Medical History: Cancer Additional Family Medical History / Comment(s): colon cancer Medications and Allergies Home Medications Medication Instructions Recorded Confirmed Type Multivitamin/Iron/Folic Acid 1 each PO DAILY 12/23/18 12/24/20 History [Centrum Adults Tablet] Thiamine HCl [Vitamin B-1] 100 mg PO DAILY 12/23/18 12/24/20 History cloNIDine HCL [Catapres] 0.1 mg PO TID 12/23/18 12/24/20 History HYDROcodone/APAP 5-325MG [[place] 1 tab PO Q6HR PRN 3 Days #12 tab 11/29/20 12/24/20 Rx 5-325] Lisinopril [Prinivil] 10 mg PO DAILY 12/05/20 12/24/20 History Allergies Allergy/AdvReac Type Severity Reaction Status Date / Time Penicillins Allergy Unknown Verified 12/24/20 06:27 Childhood Physical Exam Vitals: Vital Signs Temp Pulse Pulse Resp BP Pulse Ox 12/24/20 12:15 89 16 105/67 100 12/24/20 11:45 91 16 102/73 100 12/24/20 11:15 92 16 111/73 100 12/24/20 10:45 79 14 107/75 100 12/24/20 10:30 80 14 115/77 100 12/24/20 10:15 81 16 118/78 100 12/24/20 10:00 66 15 124/77 100 12/24/20 09:45 67 16 129/80 100 12/24/20 09:30 71 16 128/80 100 12/24/20 09:15 74 14 129/81 100 12/24/20 09:12 97.4 F L 85 12 127/81 100 12/24/20 07:24 100 16 112/73 98 12/24/20 06:35 98.5 F 103 H 17 142/80 98 Intake and Output 12/24/20 12/24/20 12/24/20 06:59 14:59 22:59 Intake Total 300 1886.5 Output Total 500 Balance 300 1386.5 Intake: IV 300 1886.5 Output: Urine 425 Estimated Blood Loss 75 Other: Weight 56.8 kg Constitutional: No acute distress, conversant, pleasant Eyes: Anicteric sclerae, moist conjunctiva, PERRLA ENMT: NC/AT Neck:Supple Lungs: Clear to auscultation Cardiovascular: Heart regular in rate and rhythm, No murmurs, gallops, or rubs no peripheral edema Abdominal: Soft , decreased breath sounds, ostomy bag in place Skin: Normal temperature, chronic discoloration Extremities:No digital cyanosis No clubbing Psychiatric: Alert and oriented to person, place and time, Appropriate affect Intact judgement Neuro: Muscles Strength 5/5 in all 4 extremities, Sensation to light touch grossly present throughout, Cranial nerves II-XII grossly intact. No focal sensory deficits Assessment and Plan Assessment: 1. Diverticulitis: Status post sigmoid resection, surgery following. Pain control as indicated. 2. Essential hypertension: Continue clonidine, hold lisinopril. 3. Hypovolemia: Continue IV fluid resuscitation 4. Asthma without exacerbation: Oxygen and bronchodilators as indicated Thank you for the consultation
[2020-12-24] MEDS: D5-0.45% NACL WITH KCL 20MEQ/L 1,000 ML IV SCH ×2 (20:18→21:34)
[2020-12-24] MEDS: NICOTINE 14MG/24HR PATCH TRANSDERM SCH (20:31)
[2020-12-24] MEDS: cloNIDine HCL 0.1 MG TAB PO SCH (21:32)
[2020-12-25] MEDS: D5-0.45% NACL WITH KCL 20MEQ/L 1,000 ML IV SCH ×3 (05:16→19:24)
[2020-12-25 05:41] LABS: Basophils % (A) 0 %; Eosinophils % (A) 0 %; HCT 27.5 % (39.0-53.0); Lymphocytes # (A) 1.1 k/uL (1.0-4.8); Lymphocytes % (A) 15 %; MCHC 34.4 g/dL (31.0-37.0); MCV 110.3 fL (80.0-100.0); Macrocytosis Marked; Mean Platelet Volume 8.1; Monocytes # (A) 0.4 k/uL (0-1.0); Monocytes % (A) 6 %; Neutrophils # (A) 5.3 k/uL (1.3-7.7); Neutrophils % (A) 77 %; RBC 2.49 m/uL (4.30-5.90); RDW 13.9 % (11.5-15.5); WBC 6.9 k/uL (3.8-10.6)
[2020-12-25 06:28] LABS: HGB 9.5 gm/dL (13.0-17.5)
[2020-12-25] MEDS: ROPIVACAINE 250 MG, HYDROMORPHONE (PF) 5 MG in SODIUM CHLORIDE 0.9% 200 ML EPIDURAL PRN (07:40)
[2020-12-25] MEDS: MULTIVITAMINS, THERA 1 EACH TAB PO SCH (08:03)
[2020-12-25] MEDS: cloNIDine HCL 0.1 MG TAB PO SCH ×3 (08:03→22:08)
[2020-12-25] MEDS: NICOTINE 14MG/24HR PATCH TRANSDERM SCH (08:03)
[2020-12-25] MEDS: HEPARIN SODIUM,PORCINE/PF 5,000 UNIT/0.5 ML SYRINGE SQ SCH ×2 (08:03→14:24)
[2020-12-25] MEDS: THIAMINE 100 MG TAB PO SCH ×2 (08:03→16:28)
[2020-12-25] MEDS: ALVIMOPAN 12 MG CAPSULE PO SCH ×2 (08:03→20:02)
[2020-12-25] MEDS ORDERED: LORazepam 2 MG/ML INJ IV PRN (08:08)
[2020-12-25] MEDS ORDERED: THIAMINE 100 MG/ML 2 ML VIAL IM STA (08:08)
[2020-12-25] MEDS: LORazepam 2 MG/ML INJ IV PRN ×5 (08:56→22:08)
--- NOTE | 2020-12-25 09:04 | P.PN ---
Progress Note - Text 12/25/20 702am 50-year-old male's status post low anterior resection. Patient has an epidural catheter for postop pain control with the solution running at 9 mL an hour, patient has a VAS of 2. No motor or sensory deficit noted. Plan to continue epidural infusion
[2020-12-25 09:49] LABS: Platelet Count 77 k/uL (150-450)
[2020-12-25 10:35] LABS: African American GFR (CKD) 144.4 (60.0-200.0); Albumin 3.2 g/dL (3.80-4.90); Albumin/Globulin Ratio 1.45 (1.60-3.17); Anion Gap 6.4 mmol/L (4.00-12.00); Calcium 7.9 mg/dL (8.7-10.3); Carbon Dioxide 28.6 mmol/L (21.6-31.8); Globulin 2.2 g/dL (1.6-3.3); Non-African American GFR(CKD) 124.6 (60.0-200.0); Potassium 4.2 mmol/L (3.5-5.5); Total Bilirubin 1.2 mg/dL (0.2-1.2); Total Protein 5.4 g/dL (6.2-8.2)
--- NOTE | 2020-12-25 11:16 | P.PN ---
Subjective Progress Note Date: 12/25/20 Feels better today but has some tremors. No chest pain no abdominal pain, no nausea or vomiting. He has been passing flatus. He had an episode of bloody bowel movement earlier today. Objective - Vital Signs Vital signs: Vital Signs Temp 98.2 F 12/25/20 04:43 Pulse 85 12/25/20 04:43 Resp 18 12/25/20 04:43 BP 111/72 12/25/20 04:43 Pulse Ox 100 12/25/20 04:43 Intake & Output 12/24/20 12/25/20 12/25/20 18:59 06:59 18:59 Intake Total 1886.5 1281 Output Total 800 375 Balance 1086.5 906 Intake: IV 1886.5 Intake, IV Titration 1281 Amount D5-0.45% NaCl with KCl 1200 20Meq/l 1,000 ml @ 125 mls/hr IV .Q8H [facility] Rx#: [id number] Ropivacaine 250 mg 81 Hydromorphone (Pf) 5 mg In Sodium Chloride 0.9% 200 ml @ Per Protocol EPIDURAL .Q0M PRN Rx#: [id number] Oral 0 Output: Urine 725 375 Estimated Blood Loss 75 Other: Voiding Method Indwelling Catheter Indwelling Catheter - Exam Constitutional: No acute distress, conversant, pleasant Eyes: Anicteric sclerae, moist conjunctiva, ENMT: NC/AT Neck:Supple, FROM, no masses, or JVD, No carotid bruits; No thyromegaly Lungs: Clear to auscultation, Clear to percussion, Normal respiratory effort, no accessory muscle use Cardiovascular: Heart regular in rate and rhythm, No murmurs, gallops, or rubs no peripheral edema Abdominal: Soft Nontender, nom distended, no guarding, no rebound or rigidity, Normoactive bowel sounds Skin: Normal temperature Extremities:No digital cyanosis No clubbing, Pedal pulses intact and symmetrical Radial pulses intact and symmetrical Normal gait and station, No calf tenderness Psychiatric: Alert and oriented to person, place and time, Appropriate affect I ntact judgement Neuro: Muscles Strength 5/5 in all 4 extremities, Sensation to light touch grossly present throughout, Cranial nerves II-XII grossly intact. No focal sensory deficits - Labs CBC & Chem 7: 12/25/20 05:12 12/25/20 05:12 Labs: Abnormal Lab Results - Last 24 Hours (Table) 12/25/20 12/25/20 Range/Units 05:12 05:12 RBC 2.49 L (4.30-5.90) m/uL Hgb 9.5 L D (13.0-17.5) gm/dL Hct 27.5 L (39.0-53.0) % MCV 110.3 H (80.0-100.0) fL MCH 38.0 H (25.0-35.0) pg Plt Count 77 L (150-450) k/uL Macrocytosis Marked A BUN 8.0 L (9.0-27.0) mg/dL Creatinine 0.5 L (0.6-1.5) mg/dL Glucose 159 H (70-110) mg/dL Calcium 7.9 L (8.7-10.3) mg/dL AST 74 H (14-35) U/L Alkaline Phosphatase 137 H (41-126) U/L Total Protein 5.4 L (6.2-8.2) g/dL Albumin 3.20 L (3.80-4.90) g/dL Albumin/Globulin Ratio 1.45 L (1.60-3.17) g/dL Assessment and Plan Assessment: 1. Diverticulitis: Status post sigmoid resection, surgery following. Pain control as indicated. 2. Essential hypertension: Continue clonidine, hold lisinopril. 3. Hypovolemia: Continue IV fluids 4. Asthma without exacerbation: Oxygen and bronchodilators as indicated 5. Alcohol abuse/dependence with signs of withdrawal: Latest on [facility] protocol
--- NOTE | 2020-12-25 12:43 | P.PN ---
Subjective Progress Note Date: 12/25/20 CHIEF COMPLAINT: Diverticulitis HISTORY OF PRESENT ILLNESS: Patient is postop day #1 status post lower anterior resection for diverticulitis. Patient reports his pain is controlled. He has epidural in place. Patient had a large blood clot per rectum earlier this morning and again later this morning he did pass clots there were more reddish in color. No stool or gas reported. Denies any nausea or vomiting. Afebrile. WBC is 6.9 hemoglobin 9.5 currently on a clear liquid diet. Apparently patient is a alcoholic he drinks 5 alcoholic beverages a day. CIWA protocol was added by medicine service. PHYSICAL EXAM: VITAL SIGNS: Reviewed. GENERAL: Well-developed in no acute distress. HEENT: No sclera icterus. Extraocular movements grossly intact. Moist buccal mucosa. Head is atraumatic, normocephalic. ABDOMEN: Soft. Nondistended. Incisional dressing some blood saturation noted at the distal aspect. NEUROLOGIC: Alert and oriented. Cranial nerves II through XII grossly intact. ASSESSMENT: 1. Diverticulitis status post lower anterior resection 2. Daily alcohol use PLAN: -Continue to monitor hemoglobin -Continue epidural for pain control -Continue Carmona catheter. Patient did have a fistula between the colon and bladder. Carmona catheter needs to remain in place until specified by surgeon. -Continue clear liquid diet -Continue incentive spirometer -Encourage patient to increase activity Physician Blow Machine Tender Starch Spraying note has been reviewed by physician. Signing provider agrees with the documented findings, assessment, and plan of care. Objective - Vital Signs Vital signs: Vital Signs Temp 98.3 F 12/25/20 12:06 Pulse 100 12/25/20 12:06 Resp 18 12/25/20 04:43 BP 130/70 12/25/20 12:06 Pulse Ox 94 L 12/25/20 12:06 Intake & Output 12/24/20 12/25/20 12/25/20 18:59 06:59 18:59 Intake Total 1886.5 1281 Output Total 800 375 Balance 1086.5 906 Intake: IV 1886.5 Intake, IV Titration 1281 Amount D5-0.45% NaCl with KCl 1200 20Meq/l 1,000 ml @ 125 mls/hr IV .Q8H [facility] Rx#: [id number] Ropivacaine 250 mg 81 Hydromorphone (Pf) 5 mg In Sodium Chloride 0.9% 200 ml @ Per Protocol EPIDURAL .Q0M PRN Rx#: [id number] Oral 0 Output: Urine 725 375 Estimated Blood Loss 75 Other: Voiding Method Indwelling Catheter Indwelling Catheter - Labs CBC & Chem 7: 12/25/20 05:12 12/25/20 05:12 Labs: Abnormal Lab Results - Last 24 Hours (Table) 12/25/20 12/25/20 Range/Units 05:12 05:12 RBC 2.49 L (4.30-5.90) m/uL Hgb 9.5 L D (13.0-17.5) gm/dL Hct 27.5 L (39.0-53.0) % MCV 110.3 H (80.0-100.0) fL MCH 38.0 H (25.0-35.0) pg Plt Count 77 L (150-450) k/uL Macrocytosis Marked A BUN 8.0 L (9.0-27.0) mg/dL Creatinine 0.5 L (0.6-1.5) mg/dL Glucose 159 H (70-110) mg/dL Calcium 7.9 L (8.7-10.3) mg/dL AST 74 H (14-35) U/L Alkaline Phosphatase 137 H (41-126) U/L Total Protein 5.4 L (6.2-8.2) g/dL Albumin 3.20 L (3.80-4.90) g/dL Albumin/Globulin Ratio 1.45 L (1.60-3.17) g/dL
[2020-12-26] MEDS: HEPARIN SODIUM,PORCINE/PF 5,000 UNIT/0.5 ML SYRINGE SQ SCH ×3 (00:12→17:12)
[2020-12-26] MEDS: D5-0.45% NACL WITH KCL 20MEQ/L 1,000 ML IV SCH ×3 (03:27→17:16)
[2020-12-26] MEDS: LORazepam 2 MG/ML INJ IV PRN ×3 (04:50→13:33)
[2020-12-26 05:55] LABS: Basophils % (A) 0 %; Eosinophils % (A) 0 %; HCT 26.3 % (39.0-53.0); HGB 8.5 gm/dL (13.0-17.5); Lymphocytes # (A) 0.9 k/uL (1.0-4.8); Lymphocytes % (A) 15 %; MCH 36.1 pg (25.0-35.0); MCHC 32.3 g/dL (31.0-37.0); Macrocytosis Marked; Mean Platelet Volume 9.3; Monocytes # (A) 0.3 k/uL (0-1.0); Monocytes % (A) 4 %; Neutrophils # (A) 4.9 k/uL (1.3-7.7); Neutrophils % (A) 79 %; RBC 2.35 m/uL (4.30-5.90); RDW 14.2 % (11.5-15.5); WBC 6.2 k/uL (3.8-10.6)
[2020-12-26 05:59] LABS: Platelet Count 67 k/uL (150-450)
--- NOTE | 2020-12-26 07:45 | P.PN ---
Progress Note - Text Progress Note Date: 12/26/20 Postoperative day # 2 status post low anterior resection ,epidural catheter placed for postoperative analgesia, patient doing well epidural site okay, patient currently on combination of epidural infusion solution of Ropivacaine 0.0625% and Dilaudid 20 g per mL the infusion rate at 9 ml per hour ,deficit epidural site okay , vital signs stable ,VAS 2 /10 , Assessment and plan= post operative day # 2 patient doing well ,pain well controlled , there is no anesthesia related complications
[2020-12-26] MEDS: THIAMINE 100 MG TAB PO SCH ×4 (09:30→17:13)
--- NOTE | 2020-12-26 09:40 | P.PN ---
Subjective Progress Note Date: 12/26/20 Increased tremors today with increased withdrawal. No chest pain, no abdominal pain. No vomiting. Objective - Vital Signs Vital signs: Vital Signs Temp 98.6 F 12/26/20 04:38 Pulse 129 H 12/26/20 04:38 Resp 16 12/26/20 04:38 BP 116/73 12/26/20 04:38 Pulse Ox 92 L 12/26/20 04:38 Intake & Output 12/25/20 12/26/20 12/26/20 18:59 06:59 18:59 Intake Total 1500 30 Output Total 550 800 Balance 950 -770 Intake: Intake, IV Titration 1500 Amount D5-0.45% NaCl with KCl 1500 20Meq/l 1,000 ml @ 125 mls/hr IV .Q8H [facility] Rx#: [id number] Oral 30 Output: Urine 550 800 Other: Voiding Method Indwelling Catheter Indwelling Catheter - Exam Constitutional: Tremors, mild to moderate distress secondary to withdrawal Eyes: Anicteric sclerae, moist conjunctiva, ENMT: NC/AT Neck:Supple, FROM, no masses, or JVD, No carotid bruits; No thyromegaly Lungs: Clear to auscultation, Clear to percussion, Normal respiratory effort, no accessory muscle use Cardiovascular: Heart regular in rate and rhythm, No murmurs, gallops, or rubs no peripheral edema Abdominal: Soft Nontender, non distended, ostomy bag in place Skin: Normal temperature Extremities:No digital cyanosis No clubbing, Pedal pulses intact and symme trical Radial pulses intact and symmetrical Normal gait and station, No calf tenderness Psychiatric: Alert and oriented to person, place and time, terminating secondary to alcohol withdrawal Neuro: Muscles Strength 5/5 in all 4 extremities, Cranial nerves II-XII grossly intact. No focal sensory deficits - Labs CBC & Chem 7: 12/26/20 05:39 12/25/20 05:12 Labs: Abnormal Lab Results - Last 24 Hours (Table) 12/25/20 12/25/20 12/26/20 Range/Units 05:12 05:12 05:39 RBC 2.35 L (4.30-5.90) m/uL Hgb 8.5 L (13.0-17.5) gm/dL Hct 26.3 L (39.0-53.0) % MCV 112.0 H (80.0-100.0) fL MCH 36.1 H (25.0-35.0) pg Plt Count 77 L 67 L (150-450) k/uL Lymphocytes # 0.9 L (1.0-4.8) k/uL Macrocytosis Marked A BUN 8.0 L (9.0-27.0) mg/dL Creatinine 0.5 L (0.6-1.5) mg/dL Glucose 159 H (70-110) mg/dL Calcium 7.9 L (8.7-10.3) mg/dL AST 74 H (14-35) U/L Alkaline Phosphatase 137 H (41-126) U/L Total Protein 5.4 L (6.2-8.2) g/dL Albumin 3.20 L (3.80-4.90) g/dL Albumin/Globulin Ratio 1.45 L (1.60-3.17) g/dL Assessment and Plan Assessment: 1. 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 Pain control as indicated. 2. Essential hypertension: Continue clonidine, hold lisinopril. 3. Hypovolemia: Continue IV fluids 4. Asthma without exacerbation: Oxygen and bronchodilators as indicated 5. Alcohol abuse/dependence with withdrawal: Continue on CIWA protocol, continue vitamins, continue supportive care. Disposition: Pending clinical progression
[2020-12-26] MEDS: ROPIVACAINE 250 MG, HYDROMORPHONE (PF) 5 MG in SODIUM CHLORIDE 0.9% 200 ML EPIDURAL PRN (10:06)
[2020-12-26] MEDS: MULTIVITAMINS, THERA 1 EACH TAB PO SCH (10:26)
[2020-12-26] MEDS: ALVIMOPAN 12 MG CAPSULE PO SCH (10:26)
[2020-12-26] MEDS: NICOTINE 14MG/24HR PATCH TRANSDERM SCH (10:26)
[2020-12-26] MEDS: cloNIDine HCL 0.1 MG TAB PO SCH ×2 (10:27→17:13)
[2020-12-26 11:27] LABS: ALT 35 U/L (10-49); AST 64 U/L (14-35); African American GFR (CKD) 144.4 (60.0-200.0); Alkaline Phosphatase 118 U/L (41-126); Blood Urea Nitrogen <5.0 mg/dL (9.0-27.0); Calcium 7.9 mg/dL (8.7-10.3); Carbon Dioxide 29.3 mmol/L (21.6-31.8); Chloride 97 mmol/L (96-109); Glucose 120 mg/dL (70-110); Non-African American GFR(CKD) 124.6 (60.0-200.0); Potassium 3.3 mmol/L (3.5-5.5); Sodium 131 mmol/L (135-145); Total Bilirubin 1.2 mg/dL (0.2-1.2)
[2020-12-26] MEDS ORDERED: POTASSIUM CHLORIDE ER 20 MEQ TAB.ER PO STA (13:08)
--- NOTE | 2020-12-26 13:09 | P.PN ---
Subjective Progress Note Date: 12/26/20 CHIEF COMPLAINT: Diverticulitis HISTORY OF PRESENT ILLNESS: Patient is postop day #2 status post lower anterior resection for diverticulitis. Patient reports his pain is controlled. He has epidural in place. Patient did pass blood clots per rectum through the night. No further blood clots reported this morning. Hemoglobin was 8.5 repeat CBC ordered for this afternoon. He has been tachycardic with a heart rate of 129. Patient had been agitated through the night and this morning and required IV Ativan per the [facility] protocol. He's currently on a clear liquid diet. Afebrile. Heart rate 125 blood pressure 140/75 WBC 6.2 hemoglobin 8.5 platelets 67 sodium 131 potassium 3.3 creatinine 0.5 PHYSICAL EXAM: VITAL SIGNS: Reviewed. GENERAL: Well-developed in no acute distress. HEENT: No sclera icterus. Extraocular movements grossly intact. Moist buccal mucosa. Head is atraumatic, normocephalic. ABDOMEN: Soft. Nondistended. Incision clean dry and intact NEUROLOGIC: Patient is lethargic. Just received Ativan ASSESSMENT: 1. Diverticulitis status post lower anterior resection 2. Daily alcohol use 3. Hypokalemia PLAN: -Repeat CBC this afternoon -Continue to monitor hemoglobin -Replace potassium -Continue epidural for pain control -Continue Carmona catheter. Patient did have a fistula between the colon and bladder. Carmona catheter needs to remain in place until specified by surgeon. -Continue clear liquid diet -Continue incentive spirometer -Encourage patient to increase activity -GI prophylaxis Protonix and DVT prophylaxis subcu heparin Physician Marine Erector note has been reviewed by physician. Signing provider agrees with the documented findings, assessment, and plan of care. Objective - Vital Signs Vital signs: Vital Signs Temp 98.6 F 12/26/20 04:38 Pulse 125 H 12/26/20 12:52 Resp 16 12/26/20 12:52 BP 140/75 12/26/20 12:52 Pulse Ox 96 12/26/20 12:52 Intake & Output 12/25/20 12/26/20 12/26/20 18:59 06:59 18:59 Intake Total 1500 30 237.9 Output Total 550 800 Balance 950 -770 237.9 Intake: Intake, IV Titration 1500 237.9 Amount D5-0.45% NaCl with KCl 1500 20Meq/l 1,000 ml @ 125 mls/hr IV .Q8H [facility] Rx#: [id number] Ropivacaine 250 mg 237.9 Hydromorphone (Pf) 5 mg In Sodium Chloride 0.9% 200 ml @ Per Protocol EPIDURAL .Q0M PRN Rx#: [id number] Oral 30 Output: Urine 550 800 Other: Voiding Method Indwelling Catheter Indwelling Catheter Indwelling Catheter - Labs CBC & Chem 7: 12/26/20 05:39 12/26/20 05:39 Labs: Abnormal Lab Results - Last 24 Hours (Table) 12/26/20 12/26/20 Range/Units 05:39 05:39 RBC 2.35 L (4.30-5.90) m/uL Hgb 8.5 L (13.0-17.5) gm/dL Hct 26.3 L (39.0-53.0) % MCV 112.0 H (80.0-100.0) fL MCH 36.1 H (25.0-35.0) pg Plt Count 67 L (150-450) k/uL Lymphocytes # 0.9 L (1.0-4.8) k/uL Macrocytosis Marked A Sodium 131 L (135-145) mmol/L Potassium 3.3 L (3.5-5.5) mmol/L BUN <5.0 L (9.0-27.0) mg/dL Creatinine 0.5 L (0.6-1.5) mg/dL Glucose 120 H (70-110) mg/dL Calcium 7.9 L (8.7-10.3) mg/dL AST 64 H (14-35) U/L Total Protein 5.0 L (6.2-8.2) g/dL Albumin 3.00 L (3.80-4.90) g/dL Albumin/Globulin Ratio 1.50 L (1.60-3.17) g/dL
[2020-12-26 13:26] LABS: Basophils % (A) 0 %; Eosinophils % (A) 0 %; HCT 25.6 % (39.0-53.0); HGB 8.9 gm/dL (13.0-17.5); Lymphocytes # (A) 1.1 k/uL (1.0-4.8); Lymphocytes % (A) 14 %; MCH 38.3 pg (25.0-35.0); MCHC 34.7 g/dL (31.0-37.0); MCV 110.3 fL (80.0-100.0); Macrocytosis Marked; Mean Platelet Volume 7.9; Monocytes # (A) 0.5 k/uL (0-1.0); Monocytes % (A) 6 %; Neutrophils # (A) 6.2 k/uL (1.3-7.7); Neutrophils % (A) 78 %; RBC 2.32 m/uL (4.30-5.90); RDW 13.4 % (11.5-15.5)
[2020-12-26 13:27] LABS: Platelet Count 72 k/uL (150-450)
[2020-12-26] MEDS ORDERED: SODIUM CHLORIDE 0.9% 500 ML 500 ML IV ONE (13:40)
--- NOTE | 2020-12-26 20:39 | XR ---
EXAMINATION TYPE: XR chest 1V portable DATE OF EXAM: 12/26/2020 COMPARISON: CT 11/29/2020. HISTORY: Shortness of breath. TECHNIQUE: Single frontal view of the chest is obtained. FINDINGS: There is diffuse opacity in the right lung with accompanying small pleural effusion. There is additional left perihilar opacity. No pneumothorax seen. The cardiac silhouette size is borderli ne enlarged. The osseous structures are intact. IMPRESSION: Right greater than left opacities may represent dependent edema with superimposed infilt rate not excluded.
[2020-12-27] MEDS: HEPARIN SODIUM,PORCINE/PF 5,000 UNIT/0.5 ML SYRINGE SQ SCH ×3 (00:41→18:50)
[2020-12-27] MEDS: cloNIDine HCL 0.1 MG TAB PO SCH ×4 (00:44→20:31)
[2020-12-27] MEDS: ALVIMOPAN 12 MG CAPSULE PO SCH (00:44)
[2020-12-27] MEDS: D5-0.45% NACL WITH KCL 20MEQ/L 1,000 ML IV SCH ×2 (01:00→15:51)
[2020-12-27 06:14] LABS: Basophils % (A) 0 %; Eosinophils # (A) 0.1 k/uL (0-0.7); Eosinophils % (A) 1 %; HCT 26.9 % (39.0-53.0); HGB 9.4 gm/dL (13.0-17.5); Lymphocytes # (A) 0.9 k/uL (1.0-4.8); Lymphocytes % (A) 12 %; MCH 38.5 pg (25.0-35.0); MCHC 35.1 g/dL (31.0-37.0); MCV 109.5 fL (80.0-100.0); Macrocytosis Marked; Mean Platelet Volume 8.1; Monocytes # (A) 0.5 k/uL (0-1.0); Monocytes % (A) 8 %; Neutrophils # (A) 5.7 k/uL (1.3-7.7); Neutrophils % (A) 78 %; Platelet Count 90 k/uL (150-450); RBC 2.45 m/uL (4.30-5.90); RDW 13.1 % (11.5-15.5); WBC 7.3 k/uL (3.8-10.6)
--- NOTE | 2020-12-27 08:45 | P.PN ---
Progress Note - Text Progress Note Date: 12/27/20 Patient without complaints. Denies headache or weakness. Of note patient is very lethargic this morning. Saturating in the 70s on O2 saturation as well as tachycardic in the 120s. I discussed with the nurse at the patient has not had a pain complaints and does have a history of alcoholism and was receiving Ativan. Epidural site clean and dry. POD#3s/p LAR. Assessment and plan: discontinue epidural today.
[2020-12-27 09:00] LABS: Glucose,Whole Blood 129 mg/dL (75-99)
[2020-12-27] MEDS: NICOTINE 14MG/24HR PATCH TRANSDERM SCH (09:36)
[2020-12-27 09:38] LABS: ABG Base Excess 8.3 mmol/L; ABG HCO3 33 mmol/L (21-25); ABG Oxygen Saturation 98.6 % (94-97); ABG PCO2 54 mmHg (35-45); ABG PO2 114 mmHg (83-108); ABG TCO2 35 mmol/L (19-24); Allen Test Performed? Yes
[2020-12-27 09:46] LABS: Basophils % (A) 0 %; Eosinophils # (A) 0.1 k/uL (0-0.7); Eosinophils % (A) 1 %; HCT 27.1 % (39.0-53.0); HGB 9.3 gm/dL (13.0-17.5); Lymphocytes # (A) 0.9 k/uL (1.0-4.8); Lymphocytes % (A) 11 %; MCH 37.7 pg (25.0-35.0); MCHC 34.3 g/dL (31.0-37.0); Macrocytosis Marked; Mean Platelet Volume 7.3; Monocytes # (A) 0.5 k/uL (0-1.0); Monocytes % (A) 6 %; Neutrophils # (A) 6.5 k/uL (1.3-7.7); Neutrophils % (A) 81 %; RBC 2.46 m/uL (4.30-5.90); RDW 13.2 % (11.5-15.5); WBC 8.1 k/uL (3.8-10.6)
--- NOTE | 2020-12-27 09:46 | XR ---
EXAMINATION TYPE: XR KUB portable DATE OF EXAM: 12/27/2020 9:39 AM CLINICAL HISTORY: Recent bowel surgery for diverticulitis, hypoxia and pain. TECHNIQUE: Single portable supine KUB image of the abdomen is obtained. COMPARISON: CT November 29, 2020. FINDINGS: Gas seen in nondistended stomach. Scattered gas seen in nondistended small and large bowel loops. Slightly more prominent gas-filled cecum. Overlying vertical skin dory mid to lower abdomen extending into pelvis. Entire pelvis not include d. IMPRESSION: Overall nonspecific strongly favors nonobstructive bowel gas pattern.
--- NOTE | 2020-12-27 09:52 | XR ---
EXAMINATION TYPE: XR chest 1V portable DATE OF EXAM: 12/27/2020 CLINICAL HISTORY: SOB. TECHNIQUE: Portable frontal view of the chest. COMPARISON: 12/26/2020 FINDINGS: Moderately increased multifocal interstitial opacities versus 12/26/2020, particularly worse throughout the left lung. Cardiac silhouette normal. No pneumothorax. No pleural effusion. Degenerati ve changes of the bilateral shoulders. There is trace linear air under the infradiaphragmatic region which may be related to abdominal free air. There is lucency delineating the right hemidiaphragm, whi ch somewhat follows contour of the right middle lobe, likely related to prominent air at the lung bas e. IMPRESSION: 1. Moderately increased interstitial opacities bilaterally, particularly worse throughout the left que ng versus 12/26/2020. Findings may be related to interstitial edema versus atypical pneumonitis includi ng Covid 19. 2. Likely small pneumoperitoneum, not unexpected status post surgery 12/24/2020.
--- NOTE | 2020-12-27 09:53 | P.PN ---
Subjective Progress Note Date: 12/27/20 Rapid response team called because of patient being lethargic and hypoxic. He received a dose of Narcan and is more awake. He is on oxygen supplementation. He is more awake Objective - Vital Signs Vital signs: Vital Signs Temp 98.1 F 12/27/20 05:00 Pulse 134 H 12/27/20 05:00 Resp 10 L 12/27/20 09:08 BP 157/86 12/27/20 05:00 Pulse Ox 95 12/27/20 05:00 Intake & Output 12/26/20 12/27/20 12/27/20 18:59 06:59 18:59 Intake Total 357.9 0 Output Total 1000 1600 Balance -642.1 -1600 Intake: Intake, IV Titration 237.9 Amount Ropivacaine 250 mg 237.9 Hydromorphone (Pf) 5 mg In Sodium Chloride 0.9% 200 ml @ Per Protocol EPIDURAL .Q0M PRN Rx#: [id number] Oral 120 0 Output: Urine 1000 1600 Other: Voiding Method Indwelling Catheter Indwelling Catheter # Bowel Movements 1 1 - Exam Constitutional: Lethargic, on oxygen Eyes: Anicteric sclerae, moist conjunctiva, ENMT: NC/AT Neck:Supple Lungs: Clear to auscultation, Clear to percussion, Normal respiratory effort, no accessory muscle use Cardiovascular: Heart regular in rate and rhythm, No murmurs, gallops, or rubs no peripheral edema Abdominal: Soft, ostomy bag in place Skin: Normal temperature Extremities:No digital cyanosis No clubbing, Pedal pulses intact and symmetrical Radial pulses intact and symmetrical Normal gait and station, No calf tenderness Psychiatric: Sleepy Neuro: Muscles Strength 5/5 in all 4 extremities, Cranial nerves II-XII grossly intact. No focal sensory deficits - Labs CBC & Chem 7: 12/27/20 05:50 12/26/20 05:39 Labs: Abnormal Lab Results - Last 24 Hours (Table) 12/26/20 12/26/20 12/27/20 Range/Units 05:39 12:43 05:50 RBC 2.32 L 2.45 L (4.30-5.90) m/uL Hgb 8.9 L 9.4 L (13.0-17.5) gm/dL Hct 25.6 L 26.9 L (39.0-53.0) % MCV 110.3 H 109.5 H (80.0-100.0) fL MCH 38.3 H 38.5 H (25.0-35.0) pg Plt Count 72 L 90 L (150-450) k/uL Lymphocytes # 0.9 L (1.0-4.8) k/uL Macrocytosis Marked A Marked A ABG pCO2 (35-45) mmHg ABG pO2 (83-108) mmHg ABG HCO3 (21-25) mmol/L ABG Total CO2 (19-24) mmol/L ABG O2 Saturation (94-97) % Sodium 131 L (135-145) mmol/L Potassium 3.3 L (3.5-5.5) mmol/L BUN <5.0 L (9.0-27.0) mg/dL Creatinine 0.5 L (0.6-1.5) mg/dL Glucose 120 H (70-110) mg/dL POC Glucose (mg/dL) (75-99) mg/dL Calcium 7.9 L (8.7-10.3) mg/dL AST 64 H (14-35) U/L Total Protein 5.0 L (6.2-8.2) g/dL Albumin 3.00 L (3.80-4.90) g/dL Albumin/Globulin Ratio 1.50 L (1.60-3.17) g/dL 12/27/20 12/27/20 Range/Units 08:56 09:34 RBC (4.30-5.90) m/uL Hgb (13.0-17.5) gm/dL Hct (39.0-53.0) % MCV (80.0-100.0) fL MCH (25.0-35.0) pg Plt Count (150-450) k/uL Lymphocytes # (1.0-4.8) k/uL Macrocytosis ABG pCO2 54 H (35-45) mmHg ABG pO2 114 H (83-108) mmHg ABG HCO3 33 H (21-25) mmol/L ABG Total CO2 35 H (19-24) mmol/L ABG O2 Saturation 98.6 H (94-97) % Sodium (135-145) mmol/L Potassium (3.5-5.5) mmol/L BUN (9.0-27.0) mg/dL Creatinine (0.6-1.5) mg/dL Glucose (70-110) mg/dL POC Glucose (mg/dL) 129 H (75-99) mg/dL Calcium (8.7-10.3) mg/dL AST (14-35) U/L Total Protein (6.2-8.2) g/dL Albumin (3.80-4.90) g/dL Albumin/Globulin Ratio (1.60-3.17) g/dL Assessment and Plan Assessment: 1. 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 Pain control as indicated. 2. Essential hypertension: Continue clonidine, hold lisinopril. 3. Hypovolemia: Continue IV fluids, decrease to 50 mL per hour 4. Asthma without exacerbation: Oxygen and bronchodilators as indicated 5. Alcohol abuse/dependence with withdrawal: Continue on CIWA protocol, continue vitamins, continue supportive care. Minimize sedatives as much as possible. 6. Hypoxia with decreased level of consciousness likely associated with sedativ es: Status post Narcan with some improvement. Supportive care, obtain d-dimer, cardiac enzymes. 7. Thrombocytopenia likely associated with alcohol use: Platelets 90, monitor. 8. Mild hypokalemia: Replace as indicated Disposition: Transfer to [facility].
[2020-12-27 09:55] LABS: INR 1.3 (<1.2); Partial Thromboplastin Time 29.9 sec (22.0-30.0); Prothrombin Time 12.9 sec (9.0-12.0)
[2020-12-27 09:59] LABS: ALT 34 U/L (4-49); AST 75 U/L (17-59); African American GFR (CKD) >90 (>60 ml/min/1.73 sqM); Albumin 2.9 g/dL (3.5-5.0); Alkaline Phosphatase 109 U/L (38-126); Anion Gap 4 mmol/L; Blood Urea Nitrogen 2 mg/dL (9-20); Calcium 8.1 mg/dL (8.4-10.2); Carbon Dioxide 34 mmol/L (22-30); Chloride 88 mmol/L (98-107); Globulin 2.9 g/dL; Glucose 165 mg/dL (74-99); Non-African American GFR(CKD) >90 (>60 ml/min/1.73 sqM); Potassium 3.8 mmol/L (3.5-5.1); Sodium 126 mmol/L (137-145); Total Bilirubin 1.7 mg/dL (0.2-1.3); Total Protein 5.8 g/dL (6.3-8.2)
[2020-12-27 10:03] LABS: ALT 36 U/L (10-49); AST 68 U/L (14-35); African American GFR (CKD) 158.3 (60.0-200.0); Albumin/Globulin Ratio 1.41 (1.60-3.17); Alkaline Phosphatase 127 U/L (41-126); Blood Urea Nitrogen <5.0 mg/dL (9.0-27.0); Calcium 7.9 mg/dL (8.7-10.3); Chloride 91 mmol/L (96-109); Globulin 2.2 g/dL (1.6-3.3); Glucose 123 mg/dL (70-110); Non-African American GFR(CKD) 136.6 (60.0-200.0); Potassium 3.6 mmol/L (3.5-5.5); Sodium 128 mmol/L (135-145); Total Bilirubin 1.6 mg/dL (0.2-1.2); Total Protein 5.3 g/dL (6.2-8.2)
[2020-12-27 11:13] LABS: Platelet Count 97 k/uL (150-450)
[2020-12-27] MEDS: PIPERACILLIN-TAZOBACTAM 3.375 GM in SODIUM CHLORIDE 0.9% 100 ML IVPB SCH ×2 (13:11→19:20)
--- NOTE | 2020-12-27 13:19 | P.PN ---
Subjective Progress Note Date: 12/27/20 CHIEF COMPLAINT: Diverticulitis HISTORY OF PRESENT ILLNESS: Patient is postop day #3 status post lower anterior resection for diverticulitis. Patient required a transfer to the cardiac floor. Patient had an episode of unresponsiveness and decreased oxygen saturation. He had received Ativan for the alcohol withdrawal. Plus he is on the epidural. Patient was given Narcan. He became more alert. He did require to be placed on partial rebreather. Patient is sleepy but able to respond to questions. He reports passing some gas. Denies any bowel movement. He has been sinus tachycardic. Patient has had no further blood clots in his stools. Chest x-ray mildly increased interstitial opacities bilaterally, particularly worse throughout the left lung. Findings may be related to interstitial edema versus atypical pneumonitis including COVID-19. Likely small pneumoperitoneum not unexpected status post surgery. KUB x-ray overall nonspecific strongly favors nonobstructive bowel gas pattern. Afebrile. Currently on a partial rebreather 95% WBC 8.1 hemoglobin 9.3 platelets 97 INR 1.3 Sodium 126 Medicine service did add IV Zosyn. Fluids decreased by medicine service Patient seen and examined with Dr. Ellington PHYSICAL EXAM: VITAL SIGNS: Reviewed. GENERAL: Well-developed in no acute distress. HEENT: No sclera icterus. Extraocular movements grossly intact. Moist buccal mucosa. Head is atraumatic, normocephalic. ABDOMEN: Soft. Nondistended. Incision clean dry and intact NEUROLOGIC: Patient is lethargic. Just received Ativan ASSESSMENT: 1. Diverticulitis status post lower anterior resection 2. Daily alcohol use 3. Hypokalemia Improved 4. Hyponatremia: Treatment per medicine service PLAN: -Continue epidural for pain control -Continue Carmona catheter. Patient did have a fistula between the colon and bladder. Carmona catheter needs to remain in place until specified by surgeon. -Continue clear liquid diet -Continue incentive spirometer -Encourage patient to increase activity -GI prophylaxis Protonix and DVT prophylaxis subcu heparin Physician Development Planner note has been reviewed by physician. Signing provider agrees with the documented findings, assessment, and plan of care. Objective - Vital Signs Vital signs: Vital Signs Temp 98.1 F 12/27/20 05:00 Pulse 130 H 12/27/20 08:00 Resp 10 L 12/27/20 09:08 BP 157/86 12/27/20 05:00 Pulse Ox 95 12/27/20 05:00 Intake & Output 12/26/20 12/27/20 12/27/20 18:59 06:59 18:59 Intake Total 357.9 0 0 Output Total 1000 1600 1000 Balance -642.1 -1600 -1000 Intake: Intake, IV Titration 237.9 Amount Ropivacaine 250 mg 237.9 Hydromorphone (Pf) 5 mg In Sodium Chloride 0.9% 200 ml @ Per Protocol EPIDURAL .Q0M PRN Rx#: [id number] Oral 120 0 0 Output: Urine 1000 1600 1000 Other: Voiding Method Indwelling Catheter Indwelling Catheter Indwelling Catheter # Bowel Movements 1 1 - Labs CBC & Chem 7: 12/27/20 09:12 12/27/20 09:12 Labs: Abnormal Lab Results - Last 24 Hours (Table) 12/26/20 12/27/20 12/27/20 Range/Units 12:43 05:50 05:50 RBC 2.32 L 2.45 L (4.30-5.90) m/uL Hgb 8.9 L 9.4 L (13.0-17.5) gm/dL Hct 25.6 L 26.9 L (39.0-53.0) % MCV 110.3 H 109.5 H (80.0-100.0) fL MCH 38.3 H 38.5 H (25.0-35.0) pg Plt Count 72 L 90 L (150-450) k/uL Lymphocytes # 0.9 L (1.0-4.8) k/uL Macrocytosis Marked A Marked A PT (9.0-12.0) sec INR (<1.2) D-Dimer (<0.60) mg/L FEU ABG pCO2 (35-45) mmHg ABG pO2 (83-108) mmHg ABG HCO3 (21-25) mmol/L ABG Total CO2 (19-24) mmol/L ABG O2 Saturation (94-97) % Sodium 128 L (135-145) mmol/L Chloride 91 L (96-109) mmol/L Carbon Dioxide (22-30) mmol/L BUN <5.0 L (9.0-27.0) mg/dL Creatinine 0.4 L (0.6-1.5) mg/dL Glucose 123 H (70-110) mg/dL POC Glucose (mg/dL) (75-99) mg/dL Calcium 7.9 L (8.7-10.3) mg/dL Total Bilirubin 1.6 H (0.2-1.2) mg/dL AST 68 H (14-35) U/L Alkaline Phosphatase 127 H (41-126) U/L Total Protein 5.3 L (6.2-8.2) g/dL Albumin 3.10 L (3.80-4.90) g/dL Albumin/Globulin Ratio 1.41 L (1.60-3.17) g/dL 12/27/20 12/27/20 12/27/20 Range/Units 08:56 09:12 09:12 RBC 2.46 L (4.30-5.90) m/uL Hgb 9.3 L (13.0-17.5) gm/dL Hct 27.1 L (39.0-53.0) % MCV 110.0 H (80.0-100.0) fL MCH 37.7 H (25.0-35.0) pg Plt Count 97 L (150-450) k/uL Lymphocytes # 0.9 L (1.0-4.8) k/uL Macrocytosis Marked A PT 12.9 H (9.0-12.0) sec INR 1.3 H (<1.2) D-Dimer (<0.60) mg/L FEU ABG pCO2 (35-45) mmHg ABG pO2 (83-108) mmHg ABG HCO3 (21-25) mmol/L ABG Total CO2 (19-24) mmol/L ABG O2 Saturation (94-97) % Sodium (135-145) mmol/L Chloride (96-109) mmol/L Carbon Dioxide (22-30) mmol/L BUN (9.0-27.0) mg/dL Creatinine (0.6-1.5) mg/dL Glucose (70-110) mg/dL POC Glucose (mg/dL) 129 H (75-99) mg/dL Calcium (8.7-10.3) mg/dL Total Bilirubin (0.2-1.2) mg/dL AST (14-35) U/L Alkaline Phosphatase (41-126) U/L Total Protein (6.2-8.2) g/dL Albumin (3.80-4.90) g/dL Albumin/Globulin Ratio (1.60-3.17) g/dL 12/27/20 12/27/20 12/27/20 Range/Units 09:12 09:12 09:34 RBC (4.30-5.90) m/uL Hgb (13.0-17.5) gm/dL Hct (39.0-53.0) % MCV (80.0-100.0) fL MCH (25.0-35.0) pg Plt Count (150-450) k/uL Lymphocytes # (1.0-4.8) k/uL Macrocytosis PT (9.0-12.0) sec INR (<1.2) D-Dimer 5.13 H (<0.60) mg/L FEU ABG pCO2 54 H (35-45) mmHg ABG pO2 114 H (83-108) mmHg ABG HCO3 33 H (21-25) mmol/L ABG Total CO2 35 H (19-24) mmol/L ABG O2 Saturation 98.6 H (94-97) % Sodium 126 L (135-145) mmol/L Chloride 88 L (96-109) mmol/L Carbon Dioxide 34 H (22-30) mmol/L BUN 2 L (9.0-27.0) mg/dL Creatinine 0.34 L (0.6-1.5) mg/dL Glucose 165 H (70-110) mg/dL POC Glucose (mg/dL) (75-99) mg/dL Calcium 8.1 L (8.7-10.3) mg/dL Total Bilirubin 1.7 H (0.2-1.2) mg/dL AST 75 H (14-35) U/L Alkaline Phosphatase (41-126) U/L Total Protein 5.8 L (6.2-8.2) g/dL Albumin 2.9 L (3.80-4.90) g/dL Albumin/Globulin Ratio (1.60-3.17) g/dL
[2020-12-27] MEDS: THIAMINE 100 MG TAB PO SCH ×2 (15:50→18:50)
[2020-12-27] MEDS: PANTOPRAZOLE 40 MG TABLET PO SCH (15:50)
[2020-12-27] MEDS: MULTIVITAMINS, THERA 1 EACH TAB PO SCH (15:51)
--- NOTE | 2020-12-27 19:19 | CT ---
EXAMINATION TYPE: CT chest angio for PE DATE OF EXAM: 12/27/2020 COMPARISON: None HISTORY: Shortness of breath. CT DLP: 406.9 mGycm Automated exposure control for dose reduction was used. CONTRAST: Performed with IV Contrast, patient injected with 100ml mL of Isovue 370. Images were obtained from the thoracic inlet to the diaphragm with IV contrast. There are 3-D post pr ocessed images. There is extensive patchy interstitial and airspace consolidation in both lungs. There is bilateral p leural effusions and larger on the right side. Heart size is fairly normal. There is no pericardial e ffusion. There are enlarged multiple mediastinal and bronchial lymph nodes up to almost 2 cm. Thoraci c spine is intact. There is no compression fracture. There is normal contrast opacification of the pulmonary arteries. There are no filling defects. Upper abdominal soft tissues are intact. There is pneumoperitoneum. IMPRESSION: No evidence of pulmonary embolism. Extensive bilateral pulmonary infiltrates consistent with pneumonia and RDS. Bilateral pleural effusi ons. Pneumoperitoneum. Attempts were made to discuss this exam with the medical staff but this was not successful. Corinna coates
--- NOTE | 2020-12-27 19:27 | CT ---
EXAMINATION TYPE: CT abdomen pelvis w con DATE OF EXAM: 12/27/2020 COMPARISON: 11/29/2020 HISTORY: Abdominal pain, post op bowel resection. CT DLP: 799.6 mGycm Automated exposure control for dose reduction was used. CONTRAST: Performed with IV Contrast, patient injected with 100ml mL of Isovue 370. Images were obtained from the diaphragm to the floor the pelvis with IV contrast. There are extensive airspace infiltrates in the lung bases bilaterally. There are bilateral pleural e ffusions. Heart size is normal. There is no pericardial effusion. There is mild pneumoperitoneum. The re are skin dory over the anterior mid abdomen consistent with recent surgery. Liver is intact. St omach is intact. Gallbladder appears normal. The bile ducts are not dilated. There is no sign of panc reatic mass. Kidneys show satisfactory contrast opacification. There is no hydronephrosis. Delayed images show nor mal renal excretion. There is 2 cm cortical cyst lateral right kidney. There is no adrenal mass. Ther e is no retroperitoneal adenopathy. There is some mild fluid in the paracolic gutters. There is surge ry with surgical clips at the rectosigmoid junction. There is no mesenteric edema. There is no evidence of a bowel obstruction. There are a few small bandar l fluid levels suggestive of mild ileus. There are multiple old right transverse process lumbar spine fractures. The bony pelvis is intact. There is no evidence of hip fracture. There is no inguinal her mona. Bladder is intact. There is Carmona catheter in the bladder. IMPRESSION: Small amount of free fluid in the abdomen. Pneumoperitoneum consistent with recent abdominal bowel wolfe rgery. There is evidence for some mild small bowel ileus. I do not suspect a mechanical bowel obstruc tion. There is large bowel gas and fluid-filled down to the rectum. There is resection of the sigmoid colon compared to old exam. There are new extensive pulmonary infiltrates with pleural fluid compared to old exam.
[2020-12-27] MEDS ORDERED: FUROSEMIDE 10 MG/ML 4 ML VIAL IV STA (19:59)
[2020-12-27 20:23] LABS: Basophils % (A) 0 %; Eosinophils # (A) 0.1 k/uL (0-0.7); Eosinophils % (A) 1 %; HGB 9.1 gm/dL (13.0-17.5); Lymphocytes # (A) 0.8 k/uL (1.0-4.8); Lymphocytes % (A) 11 %; MCH 37.6 pg (25.0-35.0); MCHC 34.8 g/dL (31.0-37.0); Macrocytosis Moderate; Mean Platelet Volume 7.3; Monocytes # (A) 0.8 k/uL (0-1.0); Monocytes % (A) 11 %; Neutrophils # (A) 5.3 k/uL (1.3-7.7); Neutrophils % (A) 75 %; RBC 2.41 m/uL (4.30-5.90); RDW 13.1 % (11.5-15.5); WBC 7.1 k/uL (3.8-10.6)
[2020-12-27 20:25] LABS: Platelet Count 98 k/uL (150-450)
--- NOTE | 2020-12-27 20:26 | XR ---
EXAMINATION TYPE: XR chest 1V portable DATE OF EXAM: 12/27/2020 COMPARISON: 12/27/2020 HISTORY: Hypoxemia TECHNIQUE: FINDINGS: There is patchy bilateral pulmonary interstitial and airspace infiltrates. Heart size is no rmal. I see no definite pleural effusion. There are chest leads. IMPRESSION: Extensive pulmonary infiltrates consistent with RDS. Lung disease slightly worse than exa m this morning.
[2020-12-27 21:10] LABS: C Reactive Protein 8.7 mg/dL (<1.0)
[2020-12-28] MEDS: PIPERACILLIN-TAZOBACTAM 3.375 GM in SODIUM CHLORIDE 0.9% 100 ML IVPB SCH ×3 (03:51→17:38)
[2020-12-28 05:45] LABS: Basophils % (A) 0 %; Eosinophils % (A) 0 %; HCT 25.8 % (39.0-53.0); HGB 9.1 gm/dL (13.0-17.5); Lymphocytes # (A) 0.7 k/uL (1.0-4.8); Lymphocytes % (A) 10 %; MCH 37.9 pg (25.0-35.0); MCHC 35.4 g/dL (31.0-37.0); Macrocytosis Moderate; Mean Platelet Volume 8.1; Monocytes # (A) 0.9 k/uL (0-1.0); Monocytes % (A) 13 %; Neutrophils # (A) 5.2 k/uL (1.3-7.7); Neutrophils % (A) 74 %; Platelet Count 113 k/uL (150-450); RBC 2.41 m/uL (4.30-5.90); RDW 13.1 % (11.5-15.5)
[2020-12-28 06:01] LABS: ALT 33 U/L (4-49); AST 70 U/L (17-59); African American GFR (CKD) >90 (>60 ml/min/1.73 sqM); Alkaline Phosphatase 116 U/L (38-126); Anion Gap 9 mmol/L; Blood Urea Nitrogen 8 mg/dL (9-20); Calcium 8.2 mg/dL (8.4-10.2); Carbon Dioxide 34 mmol/L (22-30); Chloride 86 mmol/L (98-107); Glucose 100 mg/dL (74-99); Non-African American GFR(CKD) >90 (>60 ml/min/1.73 sqM); Potassium 2.8 mmol/L (3.5-5.1); Sodium 129 mmol/L (137-145); Total Bilirubin 1.9 mg/dL (0.2-1.3); Total Protein 5.6 g/dL (6.3-8.2)
[2020-12-28] MEDS ORDERED: Potassium Replacement Protocol 1 EACH MISC MISCELLANE PRN (06:11)
[2020-12-28] MEDS: THIAMINE 100 MG TAB PO SCH ×2 (06:43→18:30)
[2020-12-28] MEDS: PANTOPRAZOLE 40 MG TABLET PO SCH (06:43)
[2020-12-28] MEDS: POTASSIUM CHLORIDE 10 MEQ in WATER FOR INJECTION 1 100ML.BAG IVPB SCH ×8 (06:50→18:11)
[2020-12-28] MEDS ORDERED: POTASSIUM CHLORIDE ER 20 MEQ TAB.ER PO SCH (07:00)
[2020-12-28] MEDS: MAGNESIUM SULFATE-D5W PMX 1 GM in DEXTROSE/WATER 1 100ML.BAG IVPB SCH ×2 (08:10→09:10)
--- NOTE | 2020-12-28 08:55 | XR ---
EXAMINATION TYPE: XR chest 1V portable DATE OF EXAM: 12/28/2020 CLINICAL HISTORY: Difficulty breathing progress study. TECHNIQUE: Single AP portable upright view of the chest is obtained. COMPARISON: Chest x-ray hand CTA chest from one day earlier FINDINGS: Background chronic parenchymal changes with bilateral multifocal opacities. Improved aerat ion particularly in the right lung noted. Cardiac silhouette size stable and within normal limits. Os seous structures are demineralized with surgical change right inferior glenoid. IMPRESSION: Chronic changes with improving bilateral multifocal acute opacities particularly in the r ight lung from one day earlier.
[2020-12-28] MEDS: HEPARIN SODIUM,PORCINE/PF 5,000 UNIT/0.5 ML SYRINGE SQ SCH ×4 (09:19→22:59)
[2020-12-28 09:20] LABS: ABG Base Excess 13.2 mmol/L; ABG HCO3 36 mmol/L (21-25); ABG Oxygen Saturation 91.7 % (94-97); ABG PCO2 45 mmHg (35-45); ABG PH 7.52 (7.35-7.45); ABG TCO2 38 mmol/L (19-24); Allen Test Performed? Yes
[2020-12-28] MEDS: NICOTINE 14MG/24HR PATCH TRANSDERM SCH (09:20)
[2020-12-28 09:24] LABS: ABG PO2 58 mmHg (83-108)
[2020-12-28] MEDS ORDERED: MAGNESIUM SULFATE-D5W PMX 1 GM in DEXTROSE/WATER 1 100ML.BAG IVPB SCH (10:00)
[2020-12-28] MEDS ORDERED: POTASSIUM CHLORIDE 20 MEQ in WATER FOR INJECTION 1 100ML.BAG IVPB SCH (10:00)
[2020-12-28 11:55] LABS: HGB 9.3 gm/dL (13.0-17.5); MCH 36.3 pg (25.0-35.0); MCHC 33.2 g/dL (31.0-37.0); MCV 109.3 fL (80.0-100.0); Macrocytosis Marked; Mean Platelet Volume 8.1; Platelet Count 130 k/uL (150-450); RBC 2.56 m/uL (4.30-5.90); WBC 8.7 k/uL (3.8-10.6)
[2020-12-28 12:00] LABS: Ferritin 643.5 ng/mL (22.0-322.0)
--- NOTE | 2020-12-28 13:02 | P.PN ---
Subjective Progress Note Date: 12/28/20 CHIEF COMPLAINT: Diverticulitis HISTORY OF PRESENT ILLNESS: Patient is postop day #4 status post lower anterior resection for diverticulitis. Patient required a transfer to the cardiac floor yesterday. Patient had an episode of unresponsiveness and decreased oxygen saturation. He had received Ativan for the alcohol withdrawal. Plus he is on the epidural. Patient was given Narcan. He became more alert. Today patient is more confused. He did have a large bloody bowel movement last night. He is on 4 L nasal cannula satting at 94%. He did have a temp of 101.2. He remains tachycardic. White count is normal at 7.0 hemoglobin 9.3 platelets 130 sodium 130 potassium 2.8 BUN 8 creatinine 0.6 magnesium 1.3 potassium and magnesium are being replaced. Epidural is off. Also note that patient had recent rib fractures and lumbar spine fracture earlier in November after a fall. Computed tomography scan of the abdomen and pelvis shows small amount of free fluid in the abdomen. Pneumoperitoneum consistent with recent abdominal surgery. There is evidence of mild small bowel ileus. Do not suspect mechanical bowel obstruction. There is large bowel gas and fluid-filled down to the rectum. There is resection of the sigmoid colon compared to old exam. There are new extensive pulmonary infiltrates and pleural fluid. Chest CTA no evidence of pulmonary embolism. Extensive bilateral pulmonary infiltrates consistent with pneumonia and RDS. Bilateral pleural effusions. Pneumoperitoneum. Chest x-ray chronic changes with improving bilateral multifocal acute opacities particularly in the right lung from one day earlier. Medicine service did start patient on IV antibiotics yesterday and did give a dose of IV Lasix. Patient seen and examined with Dr. Ellington PHYSICAL EXAM: VITAL SIGNS: Reviewed. GENERAL: Well-developed in no acute distress. HEENT: No sclera icterus. Extraocular movements grossly intact. Moist buccal mucosa. Head is atraumatic, normocephalic. ABDOMEN: Soft. Nondistended. Incision clean dry and intact NEUROLOGIC: Patient is confused. But is awake and able to answer some questions ASSESSMENT: 1. Diverticulitis status post lower anterior resection 2. Daily alcohol use 3. Hypokalemia and hypomagnesemia 4. Hyponatremia: Treatment per medicine service 5. Bilateral pulmonary infiltrates with pneumonia noted on CTA of chest PLAN: -Patient is scheduled to have epidural removed today -Continue Carmona catheter. Patient did have a fistula between the colon and bladder. Carmona catheter needs to remain in place until specified by surgeon. -Continue clear liquid diet -Electrolytes pain replaced -Continue incentive spirometer -Encourage patient to increase activity -GI prophylaxis Protonix and DVT prophylaxis subcu heparin Physician Equipment Installation Professional note has been reviewed by physician. Signing provider agrees with the documented findings, assessment, and plan of care. Objective - Vital Signs Vital signs: Vital Signs Temp 101.2 F H 12/28/20 08:00 Pulse 124 H 12/28/20 08:00 Resp 20 12/28/20 08:00 BP 133/75 12/28/20 08:00 Pulse Ox 94 L 12/28/20 08:00 Intake & Output 12/27/20 12/28/20 12/28/20 18:59 06:59 18:59 Intake Total 0 0 Output Total 1000 2400 Balance -1000 -2400 0 Weight 48.5 kg Intake: Oral 0 0 Output: Urine 1000 2400 Other: Voiding Method Indwelling Catheter Indwelling Catheter # Voids 0 # Bowel Movements 1 0 - Labs CBC & Chem 7: 12/28/20 11:45 12/28/20 11:45 Labs: Abnormal Lab Results - Last 24 Hours (Table) 12/27/20 12/27/20 12/28/20 Range/Units 09:12 20:09 05:31 RBC 2.41 L 2.41 L (4.30-5.90) m/uL Hgb 9.1 L 9.1 L (13.0-17.5) gm/dL Hct 26.0 L 25.8 L (39.0-53.0) % MCV 108.0 H 107.0 H (80.0-100.0) fL MCH 37.6 H 37.9 H (25.0-35.0) pg Plt Count 98 L 113 L (150-450) k/uL Lymphocytes # 0.8 L 0.7 L (1.0-4.8) k/uL Macrocytosis ABG pH (7.35-7.45) ABG pO2 (83-108) mmHg ABG HCO3 (21-25) mmol/L ABG Total CO2 (19-24) mmol/L ABG O2 Saturation (94-97) % Sodium (137-145) mmol/L Potassium (3.5-5.1) mmol/L Chloride (98-107) mmol/L Carbon Dioxide (22-30) mmol/L BUN (9-20) mg/dL Creatinine (0.66-1.25) mg/dL Glucose (74-99) mg/dL Calcium (8.4-10.2) mg/dL Magnesium (1.6-2.3) mg/dL Ferritin 643.5 H (22.0-322.0) ng/mL Total Bilirubin (0.2-1.3) mg/dL AST (17-59) U/L C-Reactive Protein 8.7 H (<1.0) mg/dL Total Protein (6.3-8.2) g/dL Albumin (3.5-5.0) g/dL 12/28/20 12/28/20 12/28/20 Range/Units 05:31 05:31 09:02 RBC (4.30-5.90) m/uL Hgb (13.0-17.5) gm/dL Hct (39.0-53.0) % MCV (80.0-100.0) fL MCH (25.0-35.0) pg Plt Count (150-450) k/uL Lymphocytes # (1.0-4.8) k/uL Macrocytosis ABG pH (7.35-7.45) ABG pO2 (83-108) mmHg ABG HCO3 (21-25) mmol/L ABG Total CO2 (19-24) mmol/L ABG O2 Saturation (94-97) % Sodium 129 L 132 L (137-145) mmol/L Potassium 2.8 L (3.5-5.1) mmol/L Chloride 86 L (98-107) mmol/L Carbon Dioxide 34 H (22-30) mmol/L BUN 8 L (9-20) mg/dL Creatinine 0.36 L (0.66-1.25) mg/dL Glucose 100 H (74-99) mg/dL Calcium 8.2 L (8.4-10.2) mg/dL Magnesium 1.3 L (1.6-2.3) mg/dL Ferritin (22.0-322.0) ng/mL Total Bilirubin 1.9 H (0.2-1.3) mg/dL AST 70 H (17-59) U/L C-Reactive Protein (<1.0) mg/dL Total Protein 5.6 L (6.3-8.2) g/dL Albumin 3.0 L (3.5-5.0) g/dL 12/28/20 12/28/20 12/28/20 Range/Units 09:18 11:45 11:45 RBC 2.56 L (4.30-5.90) m/uL Hgb 9.3 L (13.0-17.5) gm/dL Hct 28.0 L (39.0-53.0) % MCV 109.3 H (80.0-100.0) fL MCH 36.3 H (25.0-35.0) pg Plt Count 130 L (150-450) k/uL Lymphocytes # (1.0-4.8) k/uL Macrocytosis Marked A ABG pH 7.52 H (7.35-7.45) ABG pO2 58 L* (83-108) mmHg ABG HCO3 36 H (21-25) mmol/L ABG Total CO2 38 H (19-24) mmol/L ABG O2 Saturation 91.7 L (94-97) % Sodium 130 L (137-145) mmol/L Potassium (3.5-5.1) mmol/L Chloride (98-107) mmol/L Carbon Dioxide (22-30) mmol/L BUN (9-20) mg/dL Creatinine (0.66-1.25) mg/dL Glucose (74-99) mg/dL Calcium (8.4-10.2) mg/dL Magnesium (1.6-2.3) mg/dL Ferritin (22.0-322.0) ng/mL Total Bilirubin (0.2-1.3) mg/dL AST (17-59) U/L C-Reactive Protein (<1.0) mg/dL Total Protein (6.3-8.2) g/dL Albumin (3.5-5.0) g/dL
--- NOTE | 2020-12-28 17:13 | P.PN ---
Subjective Progress Note Date: 12/28/20 (delayed charting seen at 0830) Principal diagnosis: diverticulitis A 50-year-old with a history of asthma, hypertension, diverticulitis who presented for elective low anterior ressection. He has developed fevers, confusion, and electrolyte disturbances post-op. Patient seen and examined at bedside. He is still lethargic but opens his eyes to voice. He reports shortness of breath, denies any abdominal pain. General: ill appearing, mild distress, appears at stated age Derm: warm, dry Head: atraumatic, normocephalic, symmetric Eyes: EOMI, no lid lag, anicteric sclera Mouth: no lip lesion, mucus membranes moist Cardiovascular: S1S2 tachy, no murmur, positive posterior tibial pulse bilateral, Lungs: Course bs bilateral, no rhonchi, no rales , no accessory muscle use Abdominal: soft, nontender to palpation, no guarding, no appreciable organomegaly Ext: no gross muscle atrophy, no edema, no contractures Neuro: CN II-XI grossly intact, no focal neuro deficits Psych: Alert, oriented, appropriate affect Post op fever - undetermined etiology - blood culures - conitnue zosyn, add Zithromax - CT abdomen and pelvis from 12/27 reviewed which showed some free fluid in pneumoperitoneum consistent with a postoperative state and possible small bowel ileus. -CTA was completed with no evidence of pulmonary embolism but extensive pulmonary infiltrates consistent with respiratory distress syndrome. COVID-19 has been checked twice this admission and is negative. Pulmonary edema and Hyponatremia, due to fluid overload - Laix givne 12/27 with improvement in x-ray - repeat sodium in 4 hours Acute toxic metalolic encephalopathy - ativen last given 12/26 - supportive care as above Hypokalemia and hypomagnesemia - replace and recheck in AM Acute blood loss anemia, thrombocytopenia - No indication for transfusion at this point in time -Follow CBC Alcohol abuse - CIWA - Thiamine - Folic Acid HTN - Lisinopril - Clonodine DVT prophylaxis: Heparin Objective - Vital Signs Vital signs: Vital Signs Temp 101.2 F H 12/28/20 08:00 Pulse 124 H 12/28/20 08:00 Resp 20 12/28/20 08:00 BP 133/75 12/28/20 08:00 Pulse Ox 94 L 12/28/20 08:00 Intake & Output 12/27/20 12/28/20 12/28/20 18:59 06:59 18:59 Intake Total 0 0 Output Total 1000 2400 Balance -1000 -2400 0 Weight 48.5 kg 48.5 kg Intake: Oral 0 0 Output: Urine 1000 2400 Other: Voiding Method Indwelling Catheter Indwelling Catheter # Voids 0 # Bowel Movements 1 0 - Labs CBC & Chem 7: 12/28/20 11:45 12/28/20 11:45 Labs: Abnormal Lab Results - Last 24 Hours (Table) 12/27/20 12/27/20 12/28/20 Range/Units 09:12 20:09 05:31 RBC 2.41 L 2.41 L (4.30-5.90) m/uL Hgb 9.1 L 9.1 L (13.0-17.5) gm/dL Hct 26.0 L 25.8 L (39.0-53.0) % MCV 108.0 H 107.0 H (80.0-100.0) fL MCH 37.6 H 37.9 H (25.0-35.0) pg Plt Count 98 L 113 L (150-450) k/uL Lymphocytes # 0.8 L 0.7 L (1.0-4.8) k/uL Macrocytosis ABG pH (7.35-7.45) ABG pO2 (83-108) mmHg ABG HCO3 (21-25) mmol/L ABG Total CO2 (19-24) mmol/L ABG O2 Saturation (94-97) % Sodium (137-145) mmol/L Potassium (3.5-5.1) mmol/L Chloride (98-107) mmol/L Carbon Dioxide (22-30) mmol/L BUN (9-20) mg/dL Creatinine (0.66-1.25) mg/dL Glucose (74-99) mg/dL Calcium (8.4-10.2) mg/dL Magnesium (1.6-2.3) mg/dL Ferritin 643.5 H (22.0-322.0) ng/mL Total Bilirubin (0.2-1.3) mg/dL AST (17-59) U/L C-Reactive Protein 8.7 H (<1.0) mg/dL Total Protein (6.3-8.2) g/dL Albumin (3.5-5.0) g/dL 12/28/20 12/28/20 12/28/20 Range/Units 05:31 05:31 09:02 RBC (4.30-5.90) m/uL Hgb (13.0-17.5) gm/dL Hct (39.0-53.0) % MCV (80.0-100.0) fL MCH (25.0-35.0) pg Plt Count (150-450) k/uL Lymphocytes # (1.0-4.8) k/uL Macrocytosis ABG pH (7.35-7.45) ABG pO2 (83-108) mmHg ABG HCO3 (21-25) mmol/L ABG Total CO2 (19-24) mmol/L ABG O2 Saturation (94-97) % Sodium 129 L 132 L (137-145) mmol/L Potassium 2.8 L (3.5-5.1) mmol/L Chloride 86 L (98-107) mmol/L Carbon Dioxide 34 H (22-30) mmol/L BUN 8 L (9-20) mg/dL Creatinine 0.36 L (0.66-1.25) mg/dL Glucose 100 H (74-99) mg/dL Calcium 8.2 L (8.4-10.2) mg/dL Magnesium 1.3 L (1.6-2.3) mg/dL Ferritin (22.0-322.0) ng/mL Total Bilirubin 1.9 H (0.2-1.3) mg/dL AST 70 H (17-59) U/L C-Reactive Protein (<1.0) mg/dL Total Protein 5.6 L (6.3-8.2) g/dL Albumin 3.0 L (3.5-5.0) g/dL 12/28/20 12/28/20 12/28/20 Range/Units 09:18 11:45 11:45 RBC 2.56 L (4.30-5.90) m/uL Hgb 9.3 L (13.0-17.5) gm/dL Hct 28.0 L (39.0-53.0) % MCV 109.3 H (80.0-100.0) fL MCH 36.3 H (25.0-35.0) pg Plt Count 130 L (150-450) k/uL Lymphocytes # (1.0-4.8) k/uL Macrocytosis Marked A ABG pH 7.52 H (7.35-7.45) ABG pO2 58 L* (83-108) mmHg ABG HCO3 36 H (21-25) mmol/L ABG Total CO2 38 H (19-24) mmol/L ABG O2 Saturation 91.7 L (94-97) % Sodium 130 L (137-145) mmol/L Potassium (3.5-5.1) mmol/L Chloride (98-107) mmol/L Carbon Dioxide (22-30) mmol/L BUN (9-20) mg/dL Creatinine (0.66-1.25) mg/dL Glucose (74-99) mg/dL Calcium (8.4-10.2) mg/dL Magnesium (1.6-2.3) mg/dL Ferritin (22.0-322.0) ng/mL Total Bilirubin (0.2-1.3) mg/dL AST (17-59) U/L C-Reactive Protein (<1.0) mg/dL Total Protein (6.3-8.2) g/dL Albumin (3.5-5.0) g/dL
[2020-12-28] MEDS: MULTIVITAMINS, THERA 1 EACH TAB PO SCH (17:37)
[2020-12-28] MEDS: cloNIDine HCL 0.1 MG TAB PO SCH ×3 (17:37→20:30)
[2020-12-28] MEDS: AZITHROMYCIN 500 MG in SODIUM CHLORIDE 0.9% 250 ML IVPB SCH (20:29)
[2020-12-28] MEDS: THIAMINE 100 MG/ML 2 ML VIAL IVP SCH (20:29)
[2020-12-28 21:24] LABS: African American GFR (CKD) >90 (>60 ml/min/1.73 sqM); Anion Gap 5 mmol/L; Blood Urea Nitrogen 7 mg/dL (9-20); Calcium 8.2 mg/dL (8.4-10.2); Carbon Dioxide 36 mmol/L (22-30); Chloride 90 mmol/L (98-107); Glucose 116 mg/dL (74-99); Non-African American GFR(CKD) >90 (>60 ml/min/1.73 sqM); Potassium 3.6 mmol/L (3.5-5.1); Sodium 131 mmol/L (137-145)
[2020-12-29] MEDS: PIPERACILLIN-TAZOBACTAM 3.375 GM in SODIUM CHLORIDE 0.9% 100 ML IVPB SCH ×3 (02:39→15:54)
[2020-12-29] MEDS: PANTOPRAZOLE 40 MG TABLET PO SCH (06:33)
[2020-12-29 08:11] LABS: HCT 25.4 % (39.0-53.0); HGB 8.5 gm/dL (13.0-17.5); MCH 36.3 pg (25.0-35.0); MCHC 33.4 g/dL (31.0-37.0); MCV 108.7 fL (80.0-100.0); Macrocytosis Marked; Platelet Count 145 k/uL (150-450); RBC 2.33 m/uL (4.30-5.90); RDW 14.1 % (11.5-15.5); WBC 6.4 k/uL (3.8-10.6)
[2020-12-29 08:33] LABS: ALT 32 U/L (4-49); AST 73 U/L (17-59); African American GFR (CKD) >90 (>60 ml/min/1.73 sqM); Albumin 2.7 g/dL (3.5-5.0); Alkaline Phosphatase 113 U/L (38-126); Anion Gap 5 mmol/L; Blood Urea Nitrogen 8 mg/dL (9-20); Carbon Dioxide 35 mmol/L (22-30); Chloride 94 mmol/L (98-107); Glucose 91 mg/dL (74-99); Magnesium 1.7 mg/dL (1.6-2.3); Non-African American GFR(CKD) >90 (>60 ml/min/1.73 sqM); Phosphorus 2.9 mg/dL (2.5-4.5); Potassium 3.3 mmol/L (3.5-5.1); Sodium 134 mmol/L (137-145); Total Bilirubin 1.6 mg/dL (0.2-1.3); Total Protein 5.4 g/dL (6.3-8.2)
[2020-12-29] MEDS: AZITHROMYCIN 500 MG in SODIUM CHLORIDE 0.9% 250 ML IVPB SCH (08:43)
[2020-12-29] MEDS: NICOTINE 14MG/24HR PATCH TRANSDERM SCH (08:43)
[2020-12-29] MEDS: FOLIC ACID 1 MG TAB PO SCH (08:43)
[2020-12-29] MEDS: HEPARIN SODIUM,PORCINE/PF 5,000 UNIT/0.5 ML SYRINGE SQ SCH ×3 (08:43→23:11)
[2020-12-29] MEDS: THIAMINE 100 MG/ML 2 ML VIAL IVP SCH ×2 (08:44→20:00)
[2020-12-29] MEDS: MULTIVITAMINS, THERA 1 EACH TAB PO SCH (08:44)
[2020-12-29] MEDS: cloNIDine HCL 0.1 MG TAB PO SCH ×3 (08:44→20:00)
[2020-12-29] MEDS ORDERED: POTASSIUM CHLORIDE 20 MEQ in WATER FOR INJECTION 1 100ML.BAG IVPB STA (11:11)
[2020-12-29] MEDS ORDERED: MAGNESIUM SULFATE-D5W PMX 1 GM in DEXTROSE/WATER 1 100ML.BAG IVPB ONE (11:11)
--- NOTE | 2020-12-29 11:15 | P.PN ---
Subjective Progress Note Date: 12/29/20 Patient is doing fairly well today. He denies any fevers or chills. No acute events overnight reported by nursing staff. Objective - Vital Signs Vital signs: Vital Signs Temp 98.6 F 12/29/20 08:00 Pulse 106 H 12/29/20 08:00 Resp 18 12/29/20 08:00 BP 154/88 12/29/20 08:00 Pulse Ox 95 12/29/20 08:00 Intake & Output 12/28/20 12/29/20 12/29/20 18:59 06:59 18:59 Intake Total 100 0 Output Total 400 875 300 Balance -300 -875 -300 Weight 48.5 kg 49 kg Intake: Oral 100 0 Output: Urine 400 875 300 Other: Voiding Method Indwelling Catheter Indwelling Catheter Indwelling Catheter # Voids 0 # Bowel Movements 2 2 1 - Exam General: The patient is awake and alert, in no distress Eye: there is normal conjunctiva bilaterally. Neck: The neck is supple, there is no JVD. Cardiovascular: Normal S1-S2, no S3-S4, no murmurs. Respiratory: Lungs clear to auscultation bilaterally Gastrointestinal: Abdomen is soft, nontender Musculoskeletal: There is no pedal edema. Neurological:. Speech is normal. Skin: Skin is warm and dry - Labs CBC & Chem 7: 12/29/20 07:30 12/29/20 07:30 Labs: Abnormal Lab Results - Last 24 Hours (Table) 12/27/20 12/28/20 12/28/20 Range/Units 09:12 09:02 11:45 RBC 2.56 L (4.30-5.90) m/uL Hgb 9.3 L (13.0-17.5) gm/dL Hct 28.0 L (39.0-53.0) % MCV 109.3 H (80.0-100.0) fL MCH 36.3 H (25.0-35.0) pg Plt Count 130 L (150-450) k/uL Macrocytosis Marked A Sodium 132 L (137-145) mmol/L Potassium (3.5-5.1) mmol/L Chloride (98-107) mmol/L Carbon Dioxide (22-30) mmol/L BUN (9-20) mg/dL Creatinine (0.66-1.25) mg/dL Glucose (74-99) mg/dL Calcium (8.4-10.2) mg/dL Ferritin 643.5 H (22.0-322.0) ng/mL Total Bilirubin (0.2-1.3) mg/dL AST (17-59) U/L Total Protein (6.3-8.2) g/dL Albumin (3.5-5.0) g/dL 12/28/20 12/28/20 12/29/20 Range/Units 11:45 20:15 07:30 RBC 2.33 L (4.30-5.90) m/uL Hgb 8.5 L (13.0-17.5) gm/dL Hct 25.4 L (39.0-53.0) % MCV 108.7 H (80.0-100.0) fL MCH 36.3 H (25.0-35.0) pg Plt Count 145 L (150-450) k/uL Macrocytosis Marked A Sodium 130 L 131 L (137-145) mmol/L Potassium (3.5-5.1) mmol/L Chloride 90 L (98-107) mmol/L Carbon Dioxide 36 H (22-30) mmol/L BUN 7 L (9-20) mg/dL Creatinine 0.31 L (0.66-1.25) mg/dL Glucose 116 H (74-99) mg/dL Calcium 8.2 L (8.4-10.2) mg/dL Ferritin (22.0-322.0) ng/mL Total Bilirubin (0.2-1.3) mg/dL AST (17-59) U/L Total Protein (6.3-8.2) g/dL Albumin (3.5-5.0) g/dL 12/29/20 Range/Units 07:30 RBC (4.30-5.90) m/uL Hgb (13.0-17.5) gm/dL Hct (39.0-53.0) % MCV (80.0-100.0) fL MCH (25.0-35.0) pg Plt Count (150-450) k/uL Macrocytosis Sodium 134 L (137-145) mmol/L Potassium 3.3 L (3.5-5.1) mmol/L Chloride 94 L (98-107) mmol/L Carbon Dioxide 35 H (22-30) mmol/L BUN 8 L (9-20) mg/dL Creatinine 0.40 L (0.66-1.25) mg/dL Glucose (74-99) mg/dL Calcium 8.0 L (8.4-10.2) mg/dL Ferritin (22.0-322.0) ng/mL Total Bilirubin 1.6 H (0.2-1.3) mg/dL AST 73 H (17-59) U/L Total Protein 5.4 L (6.3-8.2) g/dL Albumin 2.7 L (3.5-5.0) g/dL Assessment and Plan Assessment: A 50-year-old with a history of asthma, hypertension, diverticulitis who presented for elective low anterior ressection. He has developed fevers, confu camille, and electrolyte disturbances post-op. Post op fever with suspected underlying pneumonia - undetermined etiology - blood culures pending - conitnue zosyn and Zithromax - CT abdomen and pelvis from 12/27 reviewed which showed some free fluid in pneumoperitoneum consistent with a postoperative state and possible small bowel ileus. -CTA was completed with no evidence of pulmonary embolism but extensive pulmonary infiltrates consistent with respiratory distress syndrome. COVID-19 has been checked twice this admission and is negative. 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 Repeat chest x-ray showed some improvement. Acute toxic metalolic encephalopathy - Improving Hypokalemia and hypomagnesemia - replace and recheck in AM Acute blood loss anemia, thrombocytopenia - No indication for transfusion at this point in time -Follow CBC Alcohol abuse - CIWA - Thiamine - Folic Acid HTN - Lisinopril - Clonodine DVT prophylaxis: Heparin
[2020-12-29 12:19] LABS: Basophils % (A) 0 %; Eosinophils # (A) 0.1 k/uL (0-0.7); Eosinophils % (A) 1 %; HCT 24.4 % (39.0-53.0); HGB 8.4 gm/dL (13.0-17.5); Lymphocytes # (A) 1.2 k/uL (1.0-4.8); Lymphocytes % (A) 16 %; MCH 37.1 pg (25.0-35.0); MCHC 34.4 g/dL (31.0-37.0); Macrocytosis Moderate; Mean Platelet Volume 7.1; Monocytes # (A) 1.1 k/uL (0-1.0); Monocytes % (A) 14 %; Neutrophils # (A) 5.2 k/uL (1.3-7.7); Neutrophils % (A) 67 %; Platelet Count 158 k/uL (150-450); RBC 2.26 m/uL (4.30-5.90); RDW 13.2 % (11.5-15.5); WBC 7.9 k/uL (3.8-10.6)
[2020-12-29] MEDS: ACETAMINOPHEN TAB 325 MG TAB PO PRN (12:33)
[2020-12-29] MEDS: HYDROmorphone 1 MG/ML 1 ML SYRINGE IVP PRN (19:57)
[2020-12-29] MEDS: LORazepam 2 MG/ML INJ IV PRN ×3 (20:36→23:12)
[2020-12-30] MEDS: LORazepam 2 MG/ML INJ IV PRN (02:17)
[2020-12-30] MEDS: PIPERACILLIN-TAZOBACTAM 3.375 GM in SODIUM CHLORIDE 0.9% 100 ML IVPB SCH ×3 (02:21→16:16)
[2020-12-30 03:39] LABS: MCH 37.5 pg (25.0-35.0); MCHC 34.4 g/dL (31.0-37.0); MCV 109.1 fL (80.0-100.0); Macrocytosis Marked; Mean Platelet Volume 6.8; Platelet Count 173 k/uL (150-450); RBC 1.84 m/uL (4.30-5.90); RDW 13.5 % (11.5-15.5); WBC 7.6 k/uL (3.8-10.6)
[2020-12-30 03:56] LABS: HGB 6.9 gm/dL (13.0-17.5)
[2020-12-30 03:57] LABS: African American GFR (CKD) >90 (>60 ml/min/1.73 sqM); Anion Gap 5 mmol/L; Blood Urea Nitrogen 9 mg/dL (9-20); Calcium 7.8 mg/dL (8.4-10.2); Carbon Dioxide 33 mmol/L (22-30); Chloride 97 mmol/L (98-107); Glucose 95 mg/dL (74-99); Magnesium 1.7 mg/dL (1.6-2.3); Non-African American GFR(CKD) >90 (>60 ml/min/1.73 sqM); Sodium 135 mmol/L (137-145)
[2020-12-30] MEDS: PANTOPRAZOLE 40 MG TABLET PO SCH (06:18)
[2020-12-30] MEDS ORDERED: POTASSIUM CHLORIDE 20 MEQ in WATER FOR INJECTION 1 100ML.BAG IVPB STA (07:33)
[2020-12-30] MEDS ORDERED: POTASSIUM CHLORIDE ER 20 MEQ TAB.ER PO STA (07:34)
[2020-12-30] MEDS: HEPARIN SODIUM,PORCINE/PF 5,000 UNIT/0.5 ML SYRINGE SQ SCH ×2 (08:23→14:16)
[2020-12-30] MEDS: AZITHROMYCIN 500 MG in SODIUM CHLORIDE 0.9% 250 ML IVPB SCH (08:23)
[2020-12-30] MEDS: MULTIVITAMINS, THERA 1 EACH TAB PO SCH (08:24)
[2020-12-30] MEDS: NICOTINE 14MG/24HR PATCH TRANSDERM SCH (08:24)
[2020-12-30] MEDS: FOLIC ACID 1 MG TAB PO SCH (08:24)
[2020-12-30] MEDS: cloNIDine HCL 0.1 MG TAB PO SCH ×3 (08:24→22:12)
[2020-12-30] MEDS: THIAMINE 100 MG/ML 2 ML VIAL IVP SCH ×2 (08:24→22:13)
--- NOTE | 2020-12-30 11:23 | P.PN ---
Progress Note - Text Progress Note Date: 12/30/20 The patient is resting in bed. He states he feels well. He has minimal clearance of pain. He had another bloody bowel movement today. His inguinal and 6.9. He's been transfused 2 units. On exam vital signs are stable. Abdomen soft. Incision clean dry tach. Status post low anterior resection for diverticulitis with colovesical Nicole. The patient will continue to receive supportive care.
[2020-12-30] MEDS ORDERED: MAGNESIUM SULFATE-D5W PMX 1 GM in DEXTROSE/WATER 1 100ML.BAG IVPB ONE (11:27)
--- NOTE | 2020-12-30 11:35 | P.PN ---
Subjective Progress Note Date: 12/30/20 Patient is awake and alert today. He still appeared confused at times. He is having bloody bowel movements with large blood clots. Hemoglobin this morning was 6.9. Patient remained hemodynamically stable. He received 1 unit of PRBC awaiting repeat hemoglobin level. Objective - Vital Signs Vital signs: Vital Signs Temp 98.4 F 12/30/20 08:41 Pulse 91 12/30/20 08:41 Resp 18 12/30/20 08:41 BP 150/83 12/30/20 08:41 Pulse Ox 98 12/30/20 08:41 Intake & Output 12/29/20 12/30/20 12/30/20 18:59 06:59 18:59 Intake Total 0 0 310 Output Total 300 1200 250 Balance -300 -1200 60 Weight 49 kg 47.5 kg Intake: Oral 0 0 Blood Product 0 310 Rc As-1 Unit 0 310 [id number] Output: Urine 300 1200 250 Other: Voiding Method Indwelling Catheter Indwelling Catheter Indwelling Catheter # Bowel Movements 2 - Exam General: The patient is awake and alert, in no distress Eye: there is normal conjunctiva bilaterally. Neck: The neck is supple, there is no JVD. Cardiovascular: Normal S1-S2, no S3-S4, no murmurs. Respiratory: Lungs clear to auscultation bilaterally Gastrointestinal: Abdomen is soft, nontender Musculoskeletal: There is no pedal edema. Neurological:. Speech is normal. Skin: Skin is warm and dry - Labs CBC & Chem 7: 12/30/20 03:02 12/30/20 03:02 Labs: Abnormal Lab Results - Last 24 Hours (Table) 12/29/20 12/29/20 12/30/20 Range/Units 11:24 11:27 03:02 RBC 2.26 L (4.30-5.90) m/uL Hgb 8.4 L (13.0-17.5) gm/dL Hct 24.4 L (39.0-53.0) % MCV 108.0 H (80.0-100.0) fL MCH 37.1 H (25.0-35.0) pg Monocytes # 1.1 H (0-1.0) k/uL Macrocytosis Sodium 135 L (137-145) mmol/L Potassium 3.0 L (3.5-5.1) mmol/L Chloride 97 L (98-107) mmol/L Carbon Dioxide 33 H (22-30) mmol/L Creatinine 0.37 L (0.66-1.25) mg/dL Calcium 7.8 L (8.4-10.2) mg/dL Crossmatch See Detail 12/30/20 Range/Units 03:02 RBC 1.84 L (4.30-5.90) m/uL Hgb 6.9 L* D (13.0-17.5) gm/dL Hct 20.0 L (39.0-53.0) % MCV 109.1 H (80.0-100.0) fL MCH 37.5 H (25.0-35.0) pg Monocytes # (0-1.0) k/uL Macrocytosis Marked A Sodium (137-145) mmol/L Potassium (3.5-5.1) mmol/L Chloride (98-107) mmol/L Carbon Dioxide (22-30) mmol/L Creatinine (0.66-1.25) mg/dL Calcium (8.4-10.2) mg/dL Crossmatch Microbiology - Last 24 Hours (Table) 12/28/20 09:02 Blood Culture - Preliminary Blood No Growth after 24 hours Assessment and Plan Assessment: A 50-year-old with a history of asthma, hypertension, diverticulitis who presented for elective low anterior ressection. He has developed fevers, confusion, and electrolyte disturbances post-op. Post op fever with suspected underlying pneumonia - blood culures negative to date - conitnue zosyn and Zithromax day #4 - CT abdomen and pelvis from 12/27 reviewed which showed some free fluid in pneumoperitoneum consistent with a postoperative state and possible small bowel ileus. -CTA was completed with no evidence of pulmonary embolism but extensive pulmonary infiltrates consistent with respiratory distress syndrome. COVID-19 has been checked twice this admission and is negative. 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 Awaiting repeat CBC. Pulmonary edema and Hyponatremia, due to fluid overload -BNP within acceptable range -Given a dose of Lasix. Repeat chest x-ray showed some improvement. Acute toxic metalolic encephalopathy - Improving, baseline mental status unclear Hypokalemia and hypomagnesemia - replacement ordered, recheck in AM Alcohol abuse - CIWA - Thiamine - Folic Acid HTN - Lisinopril - Clonodine DVT prophylaxis: Discontinue subcu heparin and continue with SCD for DVT prophylaxis
[2020-12-30 12:46] LABS: Anisocytosis Slight; Basophils % (A) 0 %; Eosinophils # (A) 0.2 k/uL (0-0.7); Eosinophils % (A) 2 %; HGB 7.6 gm/dL (13.0-17.5); Lymphocytes # (A) 1.6 k/uL (1.0-4.8); Lymphocytes % (A) 23 %; MCH 35.4 pg (25.0-35.0); MCHC 34.4 g/dL (31.0-37.0); Macrocytosis Moderate; Monocytes # (A) 0.5 k/uL (0-1.0); Monocytes % (A) 8 %; Neutrophils # (A) 4.5 k/uL (1.3-7.7); Neutrophils % (A) 64 %; Platelet Count 166 k/uL (150-450); RBC 2.13 m/uL (4.30-5.90); RDW 16.4 % (11.5-15.5); WBC 7.1 k/uL (3.8-10.6)
[2020-12-30 12:59] LABS: MCV 103.1 fL (80.0-100.0)
[2020-12-30] MEDS: ACETAMINOPHEN TAB 325 MG TAB PO PRN (22:19)
[2020-12-31] MEDS: PIPERACILLIN-TAZOBACTAM 3.375 GM in SODIUM CHLORIDE 0.9% 100 ML IVPB SCH ×3 (02:30→19:06)
[2020-12-31] MEDS: PANTOPRAZOLE 40 MG TABLET PO SCH (07:13)
[2020-12-31 08:19] LABS: Anisocytosis Slight; Basophils # (A) 0.1 k/uL (0-0.2); Basophils % (A) 1 %; Eosinophils # (A) 0.2 k/uL (0-0.7); Eosinophils % (A) 2 %; HCT 22.7 % (39.0-53.0); HGB 7.5 gm/dL (13.0-17.5); Hypochromasia Slight; Lymphocytes # (A) 1.5 k/uL (1.0-4.8); Lymphocytes % (A) 18 %; MCH 34.7 pg (25.0-35.0); MCHC 33.1 g/dL (31.0-37.0); MCV 104.8 fL (80.0-100.0); Macrocytosis Moderate; Mean Platelet Volume 6.9; Monocytes # (A) 0.7 k/uL (0-1.0); Monocytes % (A) 8 %; Neutrophils # (A) 5.5 k/uL (1.3-7.7); Neutrophils % (A) 68 %; Platelet Count 220 k/uL (150-450); RBC 2.16 m/uL (4.30-5.90); WBC 8.2 k/uL (3.8-10.6)
[2020-12-31 08:47] LABS: African American GFR (CKD) >90 (>60 ml/min/1.73 sqM); Blood Urea Nitrogen 7 mg/dL (9-20); Calcium 7.8 mg/dL (8.4-10.2); Chloride 100 mmol/L (98-107); Glucose 85 mg/dL (74-99); Magnesium 1.6 mg/dL (1.6-2.3); Non-African American GFR(CKD) >90 (>60 ml/min/1.73 sqM); Sodium 136 mmol/L (137-145)
[2020-12-31 09:02] LABS: Anion Gap 6 mmol/L; Carbon Dioxide 30 mmol/L (22-30); Potassium 3.2 mmol/L (3.5-5.1)
[2020-12-31] MEDS: FOLIC ACID 1 MG TAB PO SCH (10:43)
[2020-12-31] MEDS: MULTIVITAMINS, THERA 1 EACH TAB PO SCH (10:43)
[2020-12-31] MEDS: cloNIDine HCL 0.1 MG TAB PO SCH ×3 (10:43→22:05)
[2020-12-31] MEDS: AZITHROMYCIN 500 MG in SODIUM CHLORIDE 0.9% 250 ML IVPB SCH (10:43)
[2020-12-31] MEDS ORDERED: POTASSIUM CHLORIDE ER 10 MEQ TAB.ER.PRT PO STA (11:13)
--- NOTE | 2020-12-31 11:18 | P.PN ---
Subjective Progress Note Date: 12/31/20 Patient is doing better today. He is more alert and less confused. No further bloody bowel movement. Hemoglobin relatively stable. No acute events overnight reported by nursing staff. Objective - Vital Signs Vital signs: Vital Signs Temp 97.3 F L 12/31/20 04:00 Pulse 95 12/31/20 04:00 Resp 18 12/31/20 04:00 BP 154/92 12/31/20 04:00 Pulse Ox 99 12/31/20 04:00 Intake & Output 12/30/20 12/31/20 12/31/20 18:59 06:59 18:59 Intake Total 310 Output Total 950 700 Balance -640 -700 Weight 45.5 kg Intake: Oral 0 Blood Product 310 Rc As-1 Unit 310 [id number] Output: Urine 950 700 Other: Voiding Method Indwelling Catheter Indwelling Catheter - Exam General: The patient is awake and alert, in no distress Eye: there is normal conjunctiva bilaterally. Neck: The neck is supple, there is no JVD. Cardiovascular: Normal S1-S2, no S3-S4, no murmurs. Respiratory: Lungs clear to auscultation bilaterally Gastrointestinal: Abdomen is soft, nontender Musculoskeletal: There is no pedal edema. Neurological:. Speech is normal. Skin: Skin is warm and dry - Labs CBC & Chem 7: 12/31/20 07:45 12/31/20 07:45 Labs: Abnormal Lab Results - Last 24 Hours (Table) 12/30/20 12/31/20 12/31/20 Range/Units 11:55 07:45 07:45 RBC 2.13 L 2.16 L (4.30-5.90) m/uL Hgb 7.6 L 7.5 L (13.0-17.5) gm/dL Hct 22.0 L 22.7 L (39.0-53.0) % MCV 103.1 H D 104.8 H (80.0-100.0) fL MCH 35.4 H (25.0-35.0) pg RDW 16.4 H 17.0 H (11.5-15.5) % Sodium 136 L (137-145) mmol/L Potassium 3.2 L (3.5-5.1) mmol/L BUN 7 L (9-20) mg/dL Creatinine 0.45 L (0.66-1.25) mg/dL Calcium 7.8 L (8.4-10.2) mg/dL Microbiology - Last 24 Hours (Table) 12/28/20 09:02 Blood Culture - Preliminary Blood No Growth after 48 hours Assessment and Plan Assessment: A 50-year-old with a history of asthma, hypertension, diverticulitis who presented for elective low anterior ressection. He has developed fevers, confusion, and electrolyte disturbances post-op. Post op fever with suspected underlying pneumonia - blood culures negative to date - conitnue zosyn and Zithromax day #5 - CT abdomen and pelvis from 12/27 reviewed which showed some free fluid in pneumoperitoneum consistent with a postoperative state and possible small bowel ileus. -CTA was completed with no evidence of pulmonary embolism but extensive pulmonary infiltrates consistent with respiratory distress syndrome. COVID-19 has been checked twice this admission and is negative. 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 Repeat hemoglobin stable Pulmonary edema and Hyponatremia, due to fluid overload -BNP within acceptable range -Given a dose of Lasix. Repeat chest x-ray showed some improvement. Acute toxic metalolic encephalopathy - Improving gradually. May be attributed to heavy alcohol use as well -Ammonia level is normal. Thyroid function test normal. - Patient's was very concerned and report that he is normally more functional but has been drinking heavily for the past 1 month. She has been psych and consult neurology for further evaluation Hypokalemia and hypomagnesemia - replacement ordered, recheck in AM Alcohol abuse - CIWA when necessary, patient is not having any evidence of withdrawal - Thiamine - Folic Acid HTN - Lisinopril - Clonodine DVT prophylaxis: Discontinue subcu heparin and continue with SCD for DVT prophylaxis
[2020-12-31] MEDS ORDERED: POTASSIUM CHLORIDE 20 MEQ in WATER FOR INJECTION 1 100ML.BAG IVPB STA (11:25)
--- NOTE | 2020-12-31 12:19 | CT ---
EXAMINATION TYPE: CT brain wo con DATE OF EXAM: 12/31/2020 COMPARISON: 11/29/2020 HISTORY: Weakness and fatigue. CT DLP: 1189 mGycm Automated exposure control for dose reduction was used. FINDINGS: Craniocervical junction maintained. Sella turcica has a normal appearance. There is moderate generali zed degenerative change. Congenital cavum septum defect noted. Nonspecific low-attenuation the white matter most typical remote ischemic change. No midline shift or mass effect. No acute hemorrhage. Calvarium intact. Orbits symmetric. Sinuses samantha ar. IMPRESSION: DEGENERATIVE AND NONSPECIFIC WHITE MATTER CHANGES MOST TYPICAL REMOTE ISCHEMIA. GREATER CENTRAL COMPO NENT OF THE DEGENERATIVE CHANGES RAISES THE QUESTION OF NORMAL PRESSURE HYDROCEPHALUS CORRELATE CLINI HERVE.
--- NOTE | 2020-12-31 12:37 | P.CNNES ---
History of Present Illness Consult date: 12/31/20 Requesting physician: Zehra Dixon Reason for Consult: encephalopathy of unclear etiology History of Present Illness: This is a 50-year-old gentleman with medical history of hypertension, diverticulitis, asthma who presented for elective lower anterior resection of the colon. on 12/24/2020. Neurology is consulted for altered mental status of unclear etiology. History was obtained from medical record. 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 This seems that postop was suspected the patient had underlying pneumonia and the patient to receive Zosyn and Zithromax for the last 5 days. Per the patient's nurse, patient mentation waxes and wanes. Some of the workup consisted of: Most recent vitals is blood pressure of 154/92, heart rate of 95, temperature of 97.3 Fahrenheit oral, rest. 18, pulse ox of 99% on 2 L of nasal cannula. His heart rate has been at the 118 overnight. He has been afebrile for at least a day and a half White blood cell most recent is 8.2. Most recent hemoglobin is 7.5. On the 12/30/2020 and his hemoglobin was 6.9. His sodium on presentation was 135 and a got as low as 126 and the most current sodium is 136 BUN 7 and creatinine is 0.45. The calcium is 7.8. The POC glucose is 85. AST 73 and ALT is 32. Amonia level <9. TSH is 0.866 which is normal. Carnes virus PCR was not detected and that was done twice. Review of Systems Review of system is limited but the per positive and negative as per HPI. Past Medical History Past Medical History: Asthma, Hypertension, Musculoskeletal Disorder Additional Past Medical History / Comment(s): asthma as a child. Hx positive cologuard. Diverticulitis. Varicose veins. Fall 11/29/20 w/ FX L2, L3, L4, & FX 3 Ribs; hematoma Rt side head healed. History of Any Multi-Drug Resistant Organisms: None Reported Past Surgical History: Orthopedic Surgery Additional Past Surgical History / Comment(s): lt knee surgery, rt shoulder reconstructed. Colonoscopy 12/06/20. Past Anesthesia/Blood Transfusion Reactions: No Reported Reaction Smoking Status: Current every day smoker - Past Family History Mother Family Medical History: Cancer Additional Family Medical History / Comment(s): liver cancer Father Family Medical History: Cancer Additional Family Medical History / Comment(s): colon cancer Medications and Allergies Home Medications Medication Instructions Recorded Confirmed Type Multivitamin/Iron/Folic Acid 1 each PO DAILY 12/23/18 12/24/20 History [Centrum Adults Tablet] Thiamine HCl [Vitamin B-1] 100 mg PO DAILY 12/23/18 12/24/20 History cloNIDine HCL [Catapres] 0.1 mg PO TID 12/23/18 12/24/20 History HYDROcodone/APAP 5-325MG [[place] 1 tab PO Q6HR PRN 3 Days #12 tab 11/29/20 12/24/20 Rx 5-325] Lisinopril [Prinivil] 10 mg PO DAILY 12/05/20 12/24/20 History Allergies Allergy/AdvReac Type Severity Reaction Status Date / Time Penicillins Allergy Unknown Verified 12/24/20 06:27 Childhood Physical Examination - Vital Signs Vital Signs: Vital Signs Temp Pulse Pulse Resp BP Pulse Ox 12/31/20 04:00 97.3 F L 95 18 154/92 99 12/31/20 02:00 118 H 97 18 12/31/20 00:00 99.3 F 118 H 18 140/90 94 L 12/30/20 20:00 97.7 F 97 97 18 127/75 95 12/30/20 14:10 97.7 F 110 H 18 131/76 100 12/30/20 12:10 18 12/30/20 11:42 98.6 F 103 H 18 120/70 97 Intake and Output 12/30/20 12/31/20 12/31/20 22:59 06:59 14:59 Intake Total 0 Output Total 1100 300 Balance -1100 -300 Intake: Oral 0 Output: Urine 1100 300 Other: Voiding Method Indwelling Catheter Indwelling Catheter Weight 45.5 kg GENERAL: The patient is lying in bed and is not in acute distress. CHEST: The heart rate is regular rate rhythm. No murmurs to auscultation. LUNG: Clear to auscultation bilaterally no wheezing noted throughout. Not labored breathing. Was coughing multiple times during my examination. ABDOMEN/GI: Bowel sounds present in all 4 quadrants. No tenderness to palpation throughout. NEUROLOGICAL: Higher mental function: The patient is awake, alert, oriented to self, place (was given option for place and correctly named it) and time. He is able to name few objects correctly (watch and pen). Patient is following commands. No aphasia and no neglect. Cranial nerves: The pupils are round, equal and reactive to light and accommodation. Visual dangelo are full to confrontation throughout. Extraocular movement is intact no nystagmus is noted. Facial sensation is normal to touch throughout. The facial strength is normal throughout. Tongue is midline and moved [id number] without any difficulty. No dysarthria is noted. Shoulder shrug is normal bilaterally. Motor: Gait is deferred. The strength is moving all extremities above gravity without drift. Normal tone and bulk. Sensation: Sensation is normal to touch throughout. Reflexes (right/left): 2+ throughout Plantars are downgoing bilaterally. Results - Laboratory Findings CBC and BMP: 12/31/20 07:45 12/31/20 07:45 Abnormal Lab Findings: Abnormal Labs 12/25/20 12/25/20 12/26/20 05:12 05:12 05:39 RBC 2.49 L 2.35 L Hgb 9.5 L D 8.5 L Hct 27.5 L 26.3 L MCV 110.3 H 112.0 H MCH 38.0 H 36.1 H RDW Plt Count 77 L 67 L Lymphocytes # 0.9 L Monocytes # Macrocytosis Marked A Marked A PT INR D-Dimer ABG pH ABG pCO2 ABG pO2 ABG HCO3 ABG Total CO2 ABG O2 Saturation Sodium Potassium Chloride Carbon Dioxide BUN 8.0 L Creatinine 0.5 L Glucose 159 H POC Glucose (mg/dL) Calcium 7.9 L Magnesium Ferritin Total Bilirubin AST 74 H Alkaline Phosphatase 137 H C-Reactive Protein Total Protein 5.4 L Albumin 3.20 L Albumin/Globulin Ratio 1.45 L Crossmatch 12/26/20 12/26/20 12/27/20 05:39 12:43 05:50 RBC 2.32 L 2.45 L Hgb 8.9 L 9.4 L Hct 25.6 L 26.9 L MCV 110.3 H 109.5 H MCH 38.3 H 38.5 H RDW Plt Count 72 L 90 L Lymphocytes # 0.9 L Monocytes # Macrocytosis Marked A Marked A PT INR D-Dimer ABG pH ABG pCO2 ABG pO2 ABG HCO3 ABG Total CO2 ABG O2 Saturation Sodium 131 L Potassium 3.3 L Chloride Carbon Dioxide BUN <5.0 L Creatinine 0.5 L Glucose 120 H POC Glucose (mg/dL) Calcium 7.9 L Magnesium Ferritin Total Bilirubin AST 64 H Alkaline Phosphatase C-Reactive Protein Total Protein 5.0 L Albumin 3.00 L Albumin/Globulin Ratio 1.50 L Crossmatch 12/27/20 12/27/20 12/27/20 05:50 08:56 09:12 RBC 2.46 L Hgb 9.3 L Hct 27.1 L MCV 110.0 H MCH 37.7 H RDW Plt Count 97 L Lymphocytes # 0.9 L Monocytes # Macrocytosis Marked A PT INR D-Dimer ABG pH ABG pCO2 ABG pO2 ABG HCO3 ABG Total CO2 ABG O2 Saturation Sodium 128 L Potassium Chloride 91 L Carbon Dioxide BUN <5.0 L Creatinine 0.4 L Glucose 123 H POC Glucose (mg/dL) 129 H Calcium 7.9 L Magnesium Ferritin Total Bilirubin 1.6 H AST 68 H Alkaline Phosphatase 127 H C-Reactive Protein Total Protein 5.3 L Albumin 3.10 L Albumin/Globulin Ratio 1.41 L Crossmatch 12/27/20 12/27/20 12/27/20 09:12 09:12 09:12 RBC Hgb Hct MCV MCH RDW Plt Count Lymphocytes # Monocytes # Macrocytosis PT 12.9 H INR 1.3 H D-Dimer 5.13 H ABG pH ABG pCO2 ABG pO2 ABG HCO3 ABG Total CO2 ABG O2 Saturation Sodium 126 L Potassium Chloride 88 L Carbon Dioxide 34 H BUN 2 L Creatinine 0.34 L Glucose 165 H POC Glucose (mg/dL) Calcium 8.1 L Magnesium Ferritin Total Bilirubin 1.7 H AST 75 H Alkaline Phosphatase C-Reactive Protein Total Protein 5.8 L Albumin 2.9 L Albumin/Globulin Ratio Crossmatch 12/27/20 12/27/20 12/27/20 09:12 09:34 20:09 RBC 2.41 L Hgb 9.1 L Hct 26.0 L MCV 108.0 H MCH 37.6 H RDW Plt Count 98 L Lymphocytes # 0.8 L Monocytes # Macrocytosis PT INR D-Dimer ABG pH ABG pCO2 54 H ABG pO2 114 H ABG HCO3 33 H ABG Total CO2 35 H ABG O2 Saturation 98.6 H Sodium Potassium Chloride Carbon Dioxide BUN Creatinine Glucose POC Glucose (mg/dL) Calcium Magnesium Ferritin 643.5 H Total Bilirubin AST Alkaline Phosphatase C-Reactive Protein 8.7 H Total Protein Albumin Albumin/Globulin Ratio Crossmatch 12/28/20 12/28/20 12/28/20 05:31 05:31 05:31 RBC 2.41 L Hgb 9.1 L Hct 25.8 L MCV 107.0 H MCH 37.9 H RDW Plt Count 113 L Lymphocytes # 0.7 L Monocytes # Macrocytosis PT INR D-Dimer ABG pH ABG pCO2 ABG pO2 ABG HCO3 ABG Total CO2 ABG O2 Saturation Sodium 129 L Potassium 2.8 L Chloride 86 L Carbon Dioxide 34 H BUN 8 L Creatinine 0.36 L Glucose 100 H POC Glucose (mg/dL) Calcium 8.2 L Magnesium 1.3 L Ferritin Total Bilirubin 1.9 H AST 70 H Alkaline Phosphatase C-Reactive Protein Total Protein 5.6 L Albumin 3.0 L Albumin/Globulin Ratio Crossmatch 12/28/20 12/28/20 12/28/20 09:02 09:18 11:45 RBC 2.56 L Hgb 9.3 L Hct 28.0 L MCV 109.3 H MCH 36.3 H RDW Plt Count 130 L Lymphocytes # Monocytes # Macrocytosis Marked A PT INR D-Dimer ABG pH 7.52 H ABG pCO2 ABG pO2 58 L* ABG HCO3 36 H ABG Total CO2 38 H ABG O2 Saturation 91.7 L Sodium 132 L Potassium Chloride Carbon Dioxide BUN Creatinine Glucose POC Glucose (mg/dL) Calcium Magnesium Ferritin Total Bilirubin AST Alkaline Phosphatase C-Reactive Protein Total Protein Albumin Albumin/Globulin Ratio Crossmatch 12/28/20 12/28/20 12/29/20 11:45 20:15 07:30 RBC 2.33 L Hgb 8.5 L Hct 25.4 L MCV 108.7 H MCH 36.3 H RDW Plt Count 145 L Lymphocytes # Monocytes # Macrocytosis Marked A PT INR D-Dimer ABG pH ABG pCO2 ABG pO2 ABG HCO3 ABG Total CO2 ABG O2 Saturation Sodium 130 L 131 L Potassium Chloride 90 L Carbon Dioxide 36 H BUN 7 L Creatinine 0.31 L Glucose 116 H POC Glucose (mg/dL) Calcium 8.2 L Magnesium Ferritin Total Bilirubin AST Alkaline Phosphatase C-Reactive Protein Total Protein Albumin Albumin/Globulin Ratio Crossmatch 12/29/20 12/29/20 12/29/20 07:30 11:24 11:27 RBC 2.26 L Hgb 8.4 L Hct 24.4 L MCV 108.0 H MCH 37.1 H RDW Plt Count Lymphocytes # Monocytes # 1.1 H Macrocytosis PT INR D-Dimer ABG pH ABG pCO2 ABG pO2 ABG HCO3 ABG Total CO2 ABG O2 Saturation Sodium 134 L Potassium 3.3 L Chloride 94 L Carbon Dioxide 35 H BUN 8 L Creatinine 0.40 L Glucose POC Glucose (mg/dL) Calcium 8.0 L Magnesium Ferritin Total Bilirubin 1.6 H AST 73 H Alkaline Phosphatase C-Reactive Protein Total Protein 5.4 L Albumin 2.7 L Albumin/Globulin Ratio Crossmatch See Detail 12/30/20 12/30/20 12/30/20 03:02 03:02 11:55 RBC 1.84 L 2.13 L Hgb 6.9 L* D 7.6 L Hct 20.0 L 22.0 L MCV 109.1 H 103.1 H D MCH 37.5 H 35.4 H RDW 16.4 H Plt Count Lymphocytes # Monocytes # Macrocytosis Marked A PT INR D-Dimer ABG pH ABG pCO2 ABG pO2 ABG HCO3 ABG Total CO2 ABG O2 Saturation Sodium 135 L Potassium 3.0 L Chloride 97 L Carbon Dioxide 33 H BUN Creatinine 0.37 L Glucose POC Glucose (mg/dL) Calcium 7.8 L Magnesium Ferritin Total Bilirubin AST Alkaline Phosphatase C-Reactive Protein Total Protein Albumin Albumin/Globulin Ratio Crossmatch 12/31/20 12/31/20 07:45 07:45 RBC 2.16 L Hgb 7.5 L Hct 22.7 L MCV 104.8 H MCH RDW 17.0 H Plt Count Lymphocytes # Monocytes # Macrocytosis PT INR D-Dimer ABG pH ABG pCO2 ABG pO2 ABG HCO3 ABG Total CO2 ABG O2 Saturation Sodium 136 L Potassium 3.2 L Chloride Carbon Dioxide BUN 7 L Creatinine 0.45 L Glucose POC Glucose (mg/dL) Calcium 7.8 L Magnesium Ferritin Total Bilirubin AST Alkaline Phosphatase C-Reactive Protein Total Protein Albumin Albumin/Globulin Ratio Crossmatch Assessment and Plan Assessment: Altered mental status due to multifactorial. Component of metabolic encephalopathy. 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 I will not start the patient on antiepileptic drug unless there is epileptiform discharges or seizure on the EEG. I ordered a CT of the head to rule out any intracranial process Will defer the rest of medical management to the primary team. Thank you for the consult. UPDATE: CT of the head is reported as degenerative and nonspecific white matter changes most typical remote ischemia. Greater central component of the degenerative changes raises the question of normal pressure hydrocephalus correlate clinically. Routine EEG: Is normal. There are no focal slowing, epileptiform discharges or seizure on EEG. The excessive fast activity is due to medication effect. Regarding the suscipion of Normal pressure hydrocephalus on imaging: I recommend the patient to follow-up with the neurologist as outpatient within 1-2 for further assessment and if was deemed he was suspected to have normal pressure hydrocephalus then would recommend neurosurgical evaluation as outpatient for possible ventriculoperitoneal shunt. There is no further neurological work-up. Please reconsult neurology if needed. En Garza MD Neuro-Hospitalist Time with Patient: Greater than 30
--- NOTE | 2020-12-31 13:15 | P.PN ---
Subjective Progress Note Date: 12/31/20 CHIEF COMPLAINT: Diverticulitis HISTORY OF PRESENT ILLNESS: Patient is postop day #7 status post lower anterior resection for diverticulitis. Patient is sitting up in bed comfortably. Reporting that his pain is controlled. He is still passing multiple blood clots with his bowel movements. He is passing gas. He did receive a unit of blood yesterday for hemoglobin of 6.9. Hemoglobin is now 7.5. White count 8.2. Sodium 136 potassium 3.2 magnesium 1.6 potassium and magnesium are being replaced. he is afebrile on 2 L satting at 97% currently on clear liquid diet. Patient seen by neurology regarding metabolic encephalopathy and also normal pressure hydrocephalus. The recommending follow-up outpatient for the normal pressure hydrocephalus. Patient seen and examined with Dr. Ellington PHYSICAL EXAM: VITAL SIGNS: Reviewed. GENERAL: Well-developed in no acute distress. HEENT: No sclera icterus. Extraocular movements grossly intact. Moist buccal mucosa. Head is atraumatic, normocephalic. ABDOMEN: Soft. Nondistended. Incision clean dry and intact NEUROLOGIC: Patient is confused. But is awake and able to answer some questions ASSESSMENT: 1. Diverticulitis status post lower anterior resection 2. Acute blood loss anemia likely secondary to bleeding at the anastomosis site 3. Daily alcohol use 4. Hypokalemia and hypomagnesemia 5. Hyponatremia followed by medicine service 6. Bilateral pulmonary infiltrates with pneumonia noted on CTA of chest PLAN: -Advance diet to regular -Continue Carmona catheter. 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 Carmona catheter needs to remain in place until specified by surgeon. -Electrolytes being replaced -Continue incentive spirometer -Encourage patient to increase activity -GI prophylaxis Protonix and DVT prophylaxis SCDs Physician Wood Last Maker note has been reviewed by physician. Signing provider agrees with the documented findings, assessment, and plan of care. Objective - Vital Signs Vital signs: Vital Signs Temp 97.6 F 12/31/20 09:45 Pulse 107 H 12/31/20 09:45 Resp 18 12/31/20 09:45 BP 130/78 12/31/20 09:45 Pulse Ox 97 12/31/20 09:45 Intake & Output 12/30/20 12/31/20 12/31/20 18:59 06:59 18:59 Intake Total 310 Output Total 950 700 Balance -640 -700 Weight 45.5 kg Intake: Oral 0 Blood Product 310 Rc As-1 Unit 310 [id number] Output: Urine 950 700 Other: Voiding Method Indwelling Catheter Indwelling Catheter Indwelling Catheter # Bowel Movements 1 - Labs CBC & Chem 7: 12/31/20 07:45 12/31/20 07:45 Labs: Abnormal Lab Results - Last 24 Hours (Table) 12/31/20 12/31/20 Range/Units 07:45 07:45 RBC 2.16 L (4.30-5.90) m/uL Hgb 7.5 L (13.0-17.5) gm/dL Hct 22.7 L (39.0-53.0) % MCV 104.8 H (80.0-100.0) fL RDW 17.0 H (11.5-15.5) % Sodium 136 L (137-145) mmol/L Potassium 3.2 L (3.5-5.1) mmol/L BUN 7 L (9-20) mg/dL Creatinine 0.45 L (0.66-1.25) mg/dL Calcium 7.8 L (8.4-10.2) mg/dL Microbiology - Last 24 Hours (Table) 12/28/20 09:02 Blood Culture - Preliminary Blood No Growth after 72 hours
[2020-12-31] MEDS: NICOTINE 14MG/24HR PATCH TRANSDERM SCH (13:19)
[2020-12-31] MEDS: MAGNESIUM SULFATE-D5W PMX 1 GM in DEXTROSE/WATER 1 100ML.BAG IVPB SCH ×2 (13:20→16:51)
[2020-12-31] MEDS: THIAMINE 100 MG/ML 2 ML VIAL IVP SCH (13:34)
[2020-12-31 16:54] LABS: Folate, Serum 15.2 ng/mL
--- NOTE | 2020-12-31 17:26 | EEG ---
ELECTROENCEPHALOGRAM REPORT DATE OF SERVICE: 12/31/2020 CLINICAL HISTORY: This is a 50-year-old gentleman with altered mental status. The video EEG is obtained to evaluate for seizure epileptiform activity. RELEVANT MEDICATION: The patient is not on any antiepileptic drugs. Was on Ativan PRN. EEG TYPE: A routine 21-channel EEG was performed with video using the 10/20 electrode placement system. DESCRIPTION: Wakefulness is obtained. During wakefulness, there is a posterior-dominant rhythm of low to moderate voltage, reactive, well modulated, of 9-10 hertz. There is no physiological sleep architecture seen. There is no focal slowing. There are excessive fast activity throughout the study. Interictal and ictal is none. ACTIVATION PROCEDURE: Photic stimulation did not evoke a posterior driving response. There was no abnormality during the photic stimulation. Hyperventilation was not performed. CLINICAL INTERPRETATION: This is a normal routine EEG. There are no focal slowing, epileptiform discharges or seizure during the study. The excessive fast activity is likely due to medication effect (Ativan). Clinical correlation is recommended. MMFLOWER / SHARATHN: [id number] / MTDD
[2021-01-01] MEDS: PIPERACILLIN-TAZOBACTAM 3.375 GM in SODIUM CHLORIDE 0.9% 100 ML IVPB SCH ×2 (02:27→08:37)
[2021-01-01] MEDS: PANTOPRAZOLE 40 MG TABLET PO SCH (06:30)
[2021-01-01 08:09] LABS: Anisocytosis Slight; Basophils % (A) 0 %; Eosinophils # (A) 0.2 k/uL (0-0.7); Eosinophils % (A) 2 %; HCT 27.5 % (39.0-53.0); Lymphocytes # (A) 1.7 k/uL (1.0-4.8); Lymphocytes % (A) 19 %; MCH 33.6 pg (25.0-35.0); MCHC 33.2 g/dL (31.0-37.0); MCV 101.2 fL (80.0-100.0); Macrocytosis Moderate; Mean Platelet Volume 7.1; Monocytes # (A) 0.5 k/uL (0-1.0); Monocytes % (A) 6 %; Neutrophils # (A) 6.3 k/uL (1.3-7.7); Neutrophils % (A) 70 %; Platelet Count 228 k/uL (150-450); Poikilocytosis Slight; RBC 2.72 m/uL (4.30-5.90); RDW 17.1 % (11.5-15.5)
[2021-01-01 08:33] LABS: African American GFR (CKD) >90 (>60 ml/min/1.73 sqM); Anion Gap 3 mmol/L; Blood Urea Nitrogen 4 mg/dL (9-20); Calcium 7.7 mg/dL (8.4-10.2); Carbon Dioxide 32 mmol/L (22-30); Chloride 100 mmol/L (98-107); Glucose 100 mg/dL (74-99); Magnesium 1.7 mg/dL (1.6-2.3); Non-African American GFR(CKD) >90 (>60 ml/min/1.73 sqM); Potassium 3.2 mmol/L (3.5-5.1); Sodium 135 mmol/L (137-145)
[2021-01-01] MEDS: NICOTINE 14MG/24HR PATCH TRANSDERM SCH (08:37)
[2021-01-01] MEDS: MULTIVITAMINS, THERA 1 EACH TAB PO SCH (08:37)
[2021-01-01] MEDS: THIAMINE 100 MG TAB PO SCH (08:37)
[2021-01-01] MEDS: cloNIDine HCL 0.1 MG TAB PO SCH ×3 (08:37→19:54)
[2021-01-01] MEDS: HYDROmorphone 1 MG/ML 1 ML SYRINGE IVP PRN ×2 (08:45→19:55)
[2021-01-01] MEDS: FOLIC ACID 1 MG TAB PO SCH (08:49)
[2021-01-01 08:56] LABS: HGB 9.1 gm/dL (13.0-17.5)
[2021-01-01] MEDS ORDERED: POTASSIUM CHLORIDE ER 20 MEQ TAB.ER PO STA (10:38)
[2021-01-01] MEDS ORDERED: POTASSIUM CHLORIDE 20 MEQ in WATER FOR INJECTION 1 100ML.BAG IVPB STA (10:40)
--- NOTE | 2021-01-01 10:44 | P.PN ---
Subjective Progress Note Date: 01/01/21 Patient is doing well today. His mentation is improving on a daily basis. No further bloody bowel movements reported by nursing staff. Objective - Vital Signs Vital signs: Vital Signs Temp 97.6 F 01/01/21 08:00 Pulse 100 01/01/21 08:00 Resp 16 01/01/21 08:00 BP 144/83 01/01/21 08:00 Pulse Ox 99 01/01/21 08:00 Intake & Output 12/31/20 01/01/21 01/01/21 18:59 06:59 18:59 Intake Total 125 310 Output Total 800 1000 Balance -675 -690 Weight 45.5 kg 46.5 kg Intake: Oral 125 Blood Product 310 Rc As-1 Unit 310 [id number] Output: Urine 800 1000 Other: Voiding Method Indwelling Catheter Indwelling Catheter # Bowel Movements 1 - Exam General: The patient is awake and alert, in no distress Eye: there is normal conjunctiva bilaterally. Neck: The neck is supple, there is no JVD. Cardiovascular: Normal S1-S2, no S3-S4, no murmurs. Respiratory: Lungs clear to auscultation bilaterally Gastrointestinal: Abdomen is soft, nontender Musculoskeletal: There is no pedal edema. Neurological:. Speech is normal. Skin: Skin is warm and dry - Labs CBC & Chem 7: 01/01/21 07:26 01/01/21 07:26 Labs: Abnormal Lab Results - Last 24 Hours (Table) 12/29/20 01/01/21 01/01/21 Range/Units 11:27 07:26 07:26 RBC 2.72 L (4.30-5.90) m/uL Hgb 9.1 L D (13.0-17.5) gm/dL Hct 27.5 L (39.0-53.0) % MCV 101.2 H (80.0-100.0) fL RDW 17.1 H (11.5-15.5) % Sodium 135 L (137-145) mmol/L Potassium 3.2 L (3.5-5.1) mmol/L Carbon Dioxide 32 H (22-30) mmol/L BUN 4 L (9-20) mg/dL Creatinine 0.46 L (0.66-1.25) mg/dL Glucose 100 H (74-99) mg/dL Calcium 7.7 L (8.4-10.2) mg/dL Crossmatch See Detail Microbiology - Last 24 Hours (Table) 12/28/20 09:02 Blood Culture - Preliminary Blood No Growth after 72 hours Assessment and Plan Assessment: A 50-year-old with a history of asthma, hypertension, diverticulitis who presented for elective low anterior ressection. He has developed fevers, confusion, and electrolyte disturbances post-op. Post op fever with suspected underlying pneumonia - blood culures negative to date - Finished 5 days course of antibiotic with Zosyn and azithromycin - CT abdomen and pelvis from 12/27 reviewed which showed some free fluid in pneumoperitoneum consistent with a postoperative state and possible small bowel ileus. -CTA was completed with no evidence of pulmonary embolism but extensive pulmonary infiltrates consistent with respiratory distress syndrome. COVID-19 has been checked twice this admission and is negative. 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 Repeat chest x-ray showed some improvement. Acute toxic metalolic encephalopathy - Improving gradually. May be attributed to history of heavy alcohol use -Ammonia level is normal. Thyroid function test normal. -Patient was seen and evaluated by neurology. Computed tomography scan of the brain showed questionable normal pressure hydrocephalus with no other acute findings. EEG was normal. -Plan to follow-up with neurology as an outpatient for further evaluation of normal pressure hydrocephalus Hypokalemia and hypomagnesemia - replacement ordered, recheck in AM Alcohol abuse - CIWA when necessary, patient is not having any evidence of withdrawal - Thiamine - Folic Acid HTN - Lisinopril - Clonodine DVT prophylaxis: Discontinue subcu heparin and continue with SCD for DVT prophylaxis
[2021-01-01] MEDS: AZITHROMYCIN 500 MG in SODIUM CHLORIDE 0.9% 250 ML IVPB SCH (12:08)
[2021-01-01] MEDS: MAGNESIUM OXIDE 400 MG TAB PO SCH ×2 (12:09→19:54)
[2021-01-01] MEDS ORDERED: HYDROcodone/APAP 5-325MG 1 EACH TAB PO PRN (13:50)
--- NOTE | 2021-01-01 14:06 | P.DS ---
Providers Date of admission: 12/24/20 05:59 Expected date of discharge: 01/01/21 Attending physician: Abdirizak Ellington Consults: 12/24/20 20:00 Consult Physician Routine Consulting Provider: Kaelyn Vazquez Consult Reason/Comments: Medical management Do you want consulting provider notified?: Already Contacted 12/31/20 07:36 Consult Physician Routine Consulting Provider: En Garza Consult Reason/Comments: Encephalopathy of unclear etiology Do you want consulting provider notified?: Yes Primary care physician: Mark Greene MD Hospital Course: Discharge diagnosis 1. Diverticulitis status post lower anterior resection 2. Colovesical fistula: patient is to continue with Carmona Catheter leg bag and follow-up with urology outpatient within the next 3 days 3. Acute blood loss anemia likely secondary to bleeding at the anastomosis site. Hemoglobin stable, no further bleeding. 4. Daily alcohol use 5. Hypokalemia . Potassium 3.2 at discharge receiving supplement. 6. Acute toxic metabolic encephalopathy 7. Hyponatremia followed by medicine service. Sodium 135 at discharge 8. Pneumonia: patient completed antibiotic treatment during hospitalization Hospital course This is a 50-year-old male with a known history of diverticulitis. He is status post lower anterior resection on 12/24/[address] ellington. During patient's hospitalization he was passing blood clots after surgery. Likely there was evidence of some bleeding at the anastomosis site. He did require blood transfusion during this admission. His hemoglobin is stable and up to 9.1 he is had no further bleeding. He did also require transfer to the cardiac floor due to issues with his respiratory status and did have postop fever. Likely related to pneumonia. He has been on antibiotics. Followed by medicine service. Patient also seen by neurology regarding his mentation which is likely metabolic encephalopathy. His mentation is improving daily. Patient's pain is co ntrolled. He is tolerating diet. He is having bowel movements. He is up and ambulating. Patient does have a colovesical fistula and Carmona catheter has remained in place. Patient only discharged with a Carmona catheter leg bag. He is being discharged to rehab at [facility] for further rehabilitation. Patient will follow-up with urology after discharge regarding the colovesical fistula. Patient is stable for discharge. Please refer to chart for any further details. Physician Computer Systems Information Director note has been reviewed by physician. Signing provider agrees with the documented findings, assessment, and plan of care. Patient Condition at Discharge: Stable Plan - Discharge Summary Discharge Rx Participant: No New Discharge Prescriptions: New HYDROcodone/APAP 5-325MG [[place] 5-325] 1 tab PO Q6HR PRN 3 Days #12 tab PRN Reason: Pain No Action Multivitamin/Iron/Folic Acid [Centrum Adults Tablet] 1 each PO DAILY cloNIDine HCL [Catapres] 0.1 mg PO TID Thiamine HCl [Vitamin B-1] 100 mg PO DAILY Lisinopril [Prinivil] 10 mg PO DAILY HYDROcodone/APAP 5-325MG [[place] 5-325] 1 tab PO Q6HR PRN 3 Days #12 tab PRN Reason: Pain Discharge Medication List Multivitamin/Iron/Folic Acid [Centrum Adults Tablet] 1 each PO DAILY 12/23/18 [History] Thiamine HCl [Vitamin B-1] 100 mg PO DAILY 12/23/18 [History] cloNIDine HCL [Catapres] 0.1 mg PO TID 12/23/18 [History] HYDROcodone/APAP 5-325MG [[place] 5-325] 1 tab PO Q6HR PRN 3 Days #12 tab 11/29/20 [Rx] Lisinopril [Prinivil] 10 mg PO DAILY 12/05/20 [History] HYDROcodone/APAP 5-325MG [[place] 5-325] 1 tab PO Q6HR PRN 3 Days #12 tab 01/01/21 [Rx] Follow up Appointment(s)/Referral(s): Abdirizak Ellington MD [STAFF PHYSICIAN] - 1 Week Channing Skelton MD [STAFF PHYSICIAN] - 3 Days Patient Instructions/Handouts: Rectal Fistulotomy (PRE) Activity/Diet/Wound Care/Special Instructions: Medicine service to complete discharge med rec No driving while taking [place] No lifting over 10 pounds You may shower. No soaking or tub baths for 2 weeks Very light activity until you are reevaluated at your follow up appointment with your surgeon Patient is to be discharged with Carmona catheter leg bag and to follow-up with urology outpatient for the colovesical fistula Discharge Disposition: TRANSFER TO SNF/ECF
[2021-01-01 16:38] LABS: LD Isoenzymes 1 23 % (19-38); LD Isoenzymes 2 30 % (30-43); LD Isoenzymes 3 21 % (16-26); LD Isoenzymes 4 12 % (3-12); LD Isoenzymes 5 14 % (3-14); Lactacte Dehydrogenase(LD) ISO 233 U/L (120-250)
[2021-01-02 00:30] VITALS: TEMP 98.9
[2021-01-02] MEDS: PANTOPRAZOLE 40 MG TABLET PO SCH (06:43)
[2021-01-02] MEDS: FOLIC ACID 1 MG TAB PO SCH (08:08)
[2021-01-02] MEDS: MAGNESIUM OXIDE 400 MG TAB PO SCH (08:08)
[2021-01-02] MEDS: cloNIDine HCL 0.1 MG TAB PO SCH (08:08)
[2021-01-02] MEDS: NICOTINE 14MG/24HR PATCH TRANSDERM SCH (08:08)
[2021-01-02] MEDS: THIAMINE 100 MG TAB PO SCH (08:08)
[2021-01-02] MEDS: MULTIVITAMINS, THERA 1 EACH TAB PO SCH (08:08)
[2021-01-02 08:26] LABS: African American GFR (CKD) >90 (>60 ml/min/1.73 sqM); Anion Gap 5 mmol/L; Blood Urea Nitrogen 4 mg/dL (9-20); Calcium 8.1 mg/dL (8.4-10.2); Carbon Dioxide 30 mmol/L (22-30); Chloride 100 mmol/L (98-107); Glucose 103 mg/dL (74-99); Non-African American GFR(CKD) >90 (>60 ml/min/1.73 sqM); Potassium 3.6 mmol/L (3.5-5.1); Sodium 135 mmol/L (137-145)
[2021-01-02 08:48] LABS: Anisocytosis Slight; Basophils # (A) 0.1 k/uL (0-0.2); Basophils % (A) 1 %; Eosinophils # (A) 0.2 k/uL (0-0.7); Eosinophils % (A) 2 %; HCT 29.1 % (39.0-53.0); HGB 9.4 gm/dL (13.0-17.5); Hypochromasia Slight; Lymphocytes # (A) 1.9 k/uL (1.0-4.8); Lymphocytes % (A) 19 %; MCH 33.6 pg (25.0-35.0); MCHC 32.3 g/dL (31.0-37.0); MCV 104.1 fL (80.0-100.0); Macrocytosis Moderate; Mean Platelet Volume 7.2; Monocytes # (A) 0.5 k/uL (0-1.0); Monocytes % (A) 5 %; Neutrophils # (A) 6.9 k/uL (1.3-7.7); Neutrophils % (A) 71 %; Platelet Count 272 k/uL (150-450); RBC 2.79 m/uL (4.30-5.90); WBC 9.7 k/uL (3.8-10.6)
[2021-01-02] MEDS ORDERED: POTASSIUM CHLORIDE ER 20 MEQ TAB.ER PO SCH (09:00)
[2021-01-02 11:19] VITALS: BMI 19.0
--- NOTE | 2021-01-02 11:22 | P.PN ---
Subjective Progress Note Date: 01/02/21 Patient was sitting at the side of the bed this morning getting ready to eat breakfast. He told me that he had a large bloody bowel movement. Hemoglobin is stable. Patient denies dizziness or lightheadedness. Objective - Vital Signs Vital signs: Vital Signs Temp 98.9 F 01/02/21 03:26 Pulse 116 H 01/02/21 08:00 Resp 18 01/02/21 08:00 BP 118/77 01/02/21 08:00 Pulse Ox 100 01/02/21 08:00 Intake & Output 01/01/21 01/02/21 01/02/21 18:59 06:59 18:59 Intake Total 580 450 Output Total 1225 Balance 580 -775 Weight 53.5 kg 53.5 kg Intake: Intake, IV Titration 100 Amount Piperacillin-Tazobactam 3 100 .375 gm In Sodium Chloride 0.9% 100 ml @ 25 mls/hr IVPB Q8H [facility] Rx#: [id number] Oral 480 450 Output: Urine 1225 Other: Voiding Method Indwelling Catheter Indwelling Catheter Indwelling Catheter # Voids 0 # Bowel Movements 1 - Exam General: The patient is awake and alert, in no distress Eye: there is normal conjunctiva bilaterally. Neck: The neck is supple, there is no JVD. Cardiovascular: Normal S1-S2, no S3-S4, no murmurs. Respiratory: Lungs clear to auscultation bilaterally Gastrointestinal: Abdomen is soft, nontender Musculoskeletal: There is no pedal edema. Neurological:. Speech is normal. Skin: Skin is warm and dry - Labs CBC & Chem 7: 01/02/21 07:00 01/02/21 07:00 Labs: Abnormal Lab Results - Last 24 Hours (Table) 01/02/21 01/02/21 Range/Units 07:00 07:00 RBC 2.79 L (4.30-5.90) m/uL Hgb 9.4 L (13.0-17.5) gm/dL Hct 29.1 L (39.0-53.0) % MCV 104.1 H (80.0-100.0) fL RDW 17.0 H (11.5-15.5) % Sodium 135 L (137-145) mmol/L BUN 4 L (9-20) mg/dL Creatinine 0.46 L (0.66-1.25) mg/dL Glucose 103 H (74-99) mg/dL Calcium 8.1 L (8.4-10.2) mg/dL Microbiology - Last 24 Hours (Table) 12/28/20 09:02 Blood Culture - Preliminary Blood No Growth after 96 hours Assessment and Plan Assessment: A 50-year-old with a history of asthma, hypertension, diverticulitis who presented for elective low anterior ressection. He has developed fevers, confusion, and electrolyte disturbances post-op. Post op fever with suspected underlying pneumonia - blood culures negative to date - Finished 5 days course of antibiotic with Zosyn and azithromycin - CT abdomen and pelvis from 12/27 reviewed which showed some free fluid in pneumoperitoneum consistent with a postoperative state and possible small bowel ileus. -CTA was completed with no evidence of pulmonary embolism but extensive pulmonary infiltrates consistent with respiratory distress syndrome. COVID-19 has been checked twice this admission and is negative. 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 Repeat chest x-ray showed some improvement. Acute toxic metalolic encephalopathy - Improving gradually. May be attributed to history of heavy alcohol use -Ammonia level is normal. Thyroid function test normal. -Patient was seen and evaluated by neurology. Computed tomography scan of the brain showed questionable normal pressure hydrocephalus with no other acute findings. EEG was normal. -Plan to follow-up with neurology as an outpatient for further evaluation of normal pressure hydrocephalus Hypokalemia and hypomagnesemia -Replaced Alcohol abuse -patient is not having any evidence of withdrawal - Thiamine - Folic Acid HTN - Lisinopril - Clonodine DVT prophylaxis: Discontinued subcu heparin and continue with SCD for DVT prophylaxis Awaiting general surgery evaluation for bloody bowel movement. Discharge planning per primary team.
[2021-01-02 17:41] VITALS: BP 115/79; PULSE 100; RESP 16
== END 2021-01-02 17:43 | disposition home health service (06) | DRG 329 ==
LOC: 2ORMAIN 05:59 → 5NMEDONC 10:57 → 3SCARD 12-27 09:52
PROVIDERS: ADMIT Surgery; ATTEND Surgery
PROC: 0DBN0ZZ Excision of Sigmoid Colon, Open Approach (ICD-10-PCS; principal; 2020-12-24 07:40)
PROC: 30233N1 Transfusion of Nonautologous Red Blood Cells into Peripheral Vein, Percutaneous Approach (ICD-10-PCS; 2020-12-30)
DX: K57.92 Diverticulitis of intestine, part unspecified, without perforation or abscess without bleeding (principal); J18.9 Pneumonia, unspecified organism; G92 Toxic encephalopathy; K92.1 Melena; F10.139 Alcohol abuse with withdrawal, unspecified; N32.1 Vesicointestinal fistula; E87.1 Hypo-osmolality and hyponatremia; D62 Acute posthemorrhagic anemia; J81.1 Chronic pulmonary edema; K56.7 Ileus, unspecified; G91.2 (Idiopathic) normal pressure hydrocephalus; I10 Essential (primary) hypertension; J45.909 Unspecified asthma, uncomplicated; I83.90 Asymptomatic varicose veins of unspecified lower extremity; F17.200 Nicotine dependence, unspecified, uncomplicated; Z79.899 Other long term (current) drug therapy; Z93.3 Colostomy status; Z87.09 Personal history of other diseases of the respiratory system; E86.1 Hypovolemia; R25.1 Tremor, unspecified; R00.0 Tachycardia, unspecified; E87.6 Hypokalemia; R09.02 Hypoxemia; D69.59 Other secondary thrombocytopenia; Z20.822 Contact with and (suspected) exposure to COVID-19; E83.42 Hypomagnesemia; Z80.0 Family history of malignant neoplasm of digestive organs; R50.82 Postprocedural fever; E87.70 Fluid overload, unspecified
CPT/HCPCS: 36600; 70450; 71045; 71275; 74018; 74177; 80048; 80053; 82140; 82607; 82728; 82746; 82805; 83605; 83625; 83735; 83880; 84100; 84295; 84443; 84484; 85025; 85027; 85379; 85610; 85730; 86140; 86850; 86900; 86901; 86920; 87040; 87635; 88307; 93005; 95816

== ENCOUNTER 2021-01-07 14:07 | Emergency (ER) | payer OTHER ==
[2021-01-07] MEDS ORDERED: ACETAMINOPHEN TAB 500 MG TAB PO STA (14:38)
[2021-01-07] MEDS ORDERED: SODIUM CHLORIDE 0.9% 1,000 ML IV STA (14:38)
--- NOTE | 2021-01-07 14:54 | ED ---
Recheck HPI - General Chief Complaint: Recheck/Abnormal Lab/Rx Stated Complaint: Low BP,high heart rate Time Seen by Provider: 01/07/21 14:21 Source: patient Mode of arrival: ambulatory Limitations: no limitations - History of Present Illness Initial Comments: Patient is a 50-year-old male, with history of asthma, hypertension, presenting to the emergency Department with complaints of a possible postop infection. Patient is 14 days post op colon resection secondary to diverticulitis with Dr. Ellington. He has been having a visiting nurse, yesterday the nurse noticed that his incision was looking a bit red and has been having drainage show she called the doctor who started him on antibiotics. Patient took his first dose of Levaquin today. For the last 2 days has been running a low-grade temperature anywhere from 99-100. Today with the visiting nurse, he noticed that the patient's blood pressure was really low in the 80s over 60s and that his heart rate was over 100, they recommended him going to the ER for evaluation. He states his abdominal pain is minimal to moderate, he states he has a history of low back fractures in that is hurting worse than his belly. He still has a catheter in place, it was posted be taken out tomorrow by Dr. Skelton. He denies feeling feverish, no chills, no nausea or vomiting. He has been having a few episodes of diarrhea. He states that while he was in the hospital he was diagnosed with pneumonia, finished a course of antibiotics for that. He denies any chest pain or shortness of breath, he denies having any cough. He states he has been trying to eat and drink as normal. He has no further complaints at this time. Upon arrival to the ER, he is febrile at 99.9, pulse is 115, BP is 112/66, 100% on room air. - Related Data Home Medications Medication Instructions Recorded Confirmed Multivitamin/Iron/Folic Acid 1 each PO DAILY@0800 12/23/18 01/07/21 [Centrum Adults Tablet] cloNIDine HCL [Catapres] 0.1 mg PO TID@0800,1500,2300 12/23/18 01/07/21 Acetaminophen [Tylenol] 500 mg PO Q4-6H PRN 01/07/21 01/07/21 Folic Acid 1 mg PO DAILY@0800 01/07/21 01/07/21 Magnesium Oxide [Mag-Ox] 400 mg PO DAILY@1500 01/07/21 01/07/21 Potassium Chloride ER [K-Dur 10] 10 meq PO DAILY@1500 01/07/21 01/07/21 Thiamine [Vitamin B-1] 100 mg PO DAILY@0800 01/07/21 01/07/21 levoFLOXacin 500 mg PO DAILY 01/07/21 01/07/21 Previous Rx's Medication Instructions Recorded HYDROcodone/APAP 5-325MG [[place] 1 tab PO Q6HR PRN 3 Days #12 tab 01/01/21 5-325] Sulfamethox-Tmp 800-160Mg [Bactrim 1 each PO Q12HR #20 tab 01/07/21 Ds] Allergies Allergy/AdvReac Type Severity Reaction Status Date / Time Penicillins Allergy Unknown Verified 01/07/21 18:09 Childhood Review of Systems ROS Statement: Those systems with pertinent positive or pertinent negative responses have been documented in the HPI. ROS Other: All systems not noted in ROS Statement are negative. Past Medical History Past Medical History: Asthma, Hypertension, Musculoskeletal Disorder Additional Past Medical History / Comment(s): asthma as a child. Hx positive cologuard. Diverticulitis. Varicose veins. Fall 11/29/20 w/ FX L2, L3, L4, & FX 3 Ribs; hematoma Rt side head healed. History of Any Multi-Drug Resistant Organisms: None Reported Past Surgical History: Orthopedic Surgery Additional Past Surgical History / Comment(s): lt knee surgery, rt shoulder reconstructed. Colonoscopy 12/06/20, exp lap. Past Anesthesia/Blood Transfusion Reactions: No Reported Reaction Past Psychological History: No Psychological Hx Reported Smoking Status: Former smoker Past Alcohol Use History: None Reported Past Drug Use History: None Reported - Past Family History Mother Family Medical History: Cancer Additional Family Medical History / Comment(s): liver cancer Father Family Medical History: Cancer Additional Family Medical History / Comment(s): colon cancer General Exam - General Exam Comments Initial Comments: GENERAL: Patient is well-developed and well-nourished. Patient is nontoxic and in no acute distress. HEAD: Atraumatic, normocephalic. EYES: Pupils equal round and reactive to light, extraocular movements intact, sclera anicteric, conjunctiva are normal. Eyelids were unremarkable. ENT: TMs normal, nares patent, oropharynx clear without exudates. Moist mucous membranes. NECK: Normal range of motion, supple without lymphadenopathy or JVD. LUNGS: Unlabored respirations. Breath sounds clear to auscultation bilaterally and equal. No wheezes rales or rhonchi. HEART: Tachycardia rate and rhythm without murmurs, rubs or gallops. ABDOMEN: Majority of abdomen is soft, he does have some hardness present around his incision in the mid abdomen region, dory are present, there is some mild erythema on the top of the dory, some mild drainage. normoactive bowel sounds. No guarding, no rebound. : Deferred MUSCULOSKELETAL: Normal extremities with adequate strength and normal range of motion, no pitting or edema. No clubbing or cyanosis. NEUROLOGICAL: Patient is alert and oriented x 3. Motor and sensory are also intact. Cranial nerves II through XII grossly intact. Symmetrical smile. Normal speech, normal gait. PSYCH: Normal mood, normal affect. SKIN: Warm, Dry, normal turgor, no rashes or lesions noted. Limitations: no limitations Course Vital Signs 01/07/21 01/07/21 01/07/21 14:13 15:36 17:25 Temperature 99.9 F H 98.6 F Pulse Rate 115 H 99 98 Respiratory 20 18 18 Rate Blood Pressure 112/66 105/68 113/74 O2 Sat by Pulse 100 100 100 Oximetry 01/07/21 01/07/21 01/07/21 19:05 20:01 20:09 Temperature 99.0 F 99.0 F Pulse Rate 82 88 88 Respiratory 18 18 18 Rate Blood Pressure 117/71 118/75 118/75 O2 Sat by Pulse 98 100 100 Oximetry Medical Decision Making - Medical Decision Making Patient is a 50-year-old male here for a possible postop infection. He is on day 14 status post resection of the colon secondary to diverticulitis by Dr. Ellington. He has had low-grade fevers for the past few days, he did arrive today febrile at 99.9, tachycardia at 115. Some mild redness and some mild drainage the top of his incisions that started 2 days ago. He does have Carmona in place. Labs show an elevated white count of 18.0, dehydration creatinine is 0.49. Lactic acid is 2.0. Urine is positive for nitrates, WBC clumps and bacteria. Urine culture is pending. Blood cultures are pending. Rapid Covid is negative. Chest x-ray shows a very subtle right lower lung opacity, as it is not impressive. CT of the abdomen shows minimal fluid present within the pelvis, correlate for colitis and enteritis. This is improvement from his last abdominal CT. She was given liter fluids, Tylenol. His vital signs have remained stable in the ER. I discussed with patient that I do recommend him being admitted to the hospital for IV antibiotics and consult to Dr. Ellington, however patient refused to be admitted. I did speak to Dr. Ellington who recommended a dose of IV Levaquin and will start Bactrim as well. Patient was started on oral Levaquin today, he did take his initial dose today. I discussed this plan with the patient. I continue to recommend admission however he refuses to stay. Patient will sign out AMA. He does have an appointment tomorrow with Dr. Ellington and Dr. Skelton. Strict return parameters were discussed with the patient he verbalizes understanding. Case discussed with Dr. Julio. - Lab Data Result diagrams: 01/07/21 14:40 01/07/21 14:40 Lab Results 01/07/21 01/07/21 01/07/21 Range/Units 14:40 14:40 14:40 WBC 18.0 H (3.8-10.6) k/uL RBC 2.98 L (4.30-5.90) m/uL Hgb 9.8 L (13.0-17.5) gm/dL Hct 31.2 L (39.0-53.0) % MCV 104.8 H (80.0-100.0) fL MCH 33.0 (25.0-35.0) pg MCHC 31.5 (31.0-37.0) g/dL RDW 16.4 H (11.5-15.5) % Plt Count 401 (150-450) k/uL MPV 6.8 Neutrophils % 79 % Lymphocytes % 11 % Monocytes % 7 % Eosinophils % 1 % Basophils % 0 % Neutrophils # 14.2 H (1.3-7.7) k/uL Lymphocytes # 2.0 (1.0-4.8) k/uL Monocytes # 1.3 H (0-1.0) k/uL Eosinophils # 0.1 (0-0.7) k/uL Basophils # 0.0 (0-0.2) k/uL Hypochromasia Slight Anisocytosis Slight Macrocytosis Moderate PT (9.0-12.0) sec INR (<1.2) APTT (22.0-30.0) sec Sodium 133 L (137-145) mmol/L Potassium 4.6 (3.5-5.1) mmol/L Chloride 97 L (98-107) mmol/L Carbon Dioxide 28 (22-30) mmol/L Anion Gap 8 mmol/L BUN 7 L (9-20) mg/dL Creatinine 0.49 L (0.66-1.25) mg/dL Est GFR (CKD-EPI)AfAm >90 (>60 ml/min/1.73 sqM) Est GFR (CKD-EPI)NonAf >90 (>60 ml/min/1.73 sqM) Glucose 95 (74-99) mg/dL Plasma Lactic Acid Carlos 2.0 (0.7-2.0) mmol/L Calcium 9.1 (8.4-10.2) mg/dL Magnesium 1.5 L (1.6-2.3) mg/dL Total Bilirubin 0.8 (0.2-1.3) mg/dL AST 62 H (17-59) U/L ALT 51 H (4-49) U/L Alkaline Phosphatase 146 H (38-126) U/L Total Protein 6.5 (6.3-8.2) g/dL Albumin 3.3 L (3.5-5.0) g/dL Lipase 56 (23-300) U/L Urine Color Urine Appearance (Clear) Urine pH (5.0-8.0) Ur Specific [place] (1.001-1.035) Urine Protein (Negative) Urine Glucose (UA) (Negative) Urine Ketones (Negative) Urine Blood (Negative) Urine Nitrite (Negative) Urine Bilirubin (Negative) Urine Urobilinogen (<2.0) mg/dL Ur Leukocyte Esterase (Negative) Urine RBC (0-5) /hpf Urine WBC (0-5) /hpf Urine WBC Clumps (None) /hpf Urine Bacteria (None) /hpf Urine Mucus (None) /hpf Coronavirus (PCR) (Not Detectd) 01/07/21 01/07/21 01/07/21 Range/Units 14:40 14:40 14:40 WBC (3.8-10.6) k/uL RBC (4.30-5.90) m/uL Hgb (13.0-17.5) gm/dL Hct (39.0-53.0) % MCV (80.0-100.0) fL MCH (25.0-35.0) pg MCHC (31.0-37.0) g/dL RDW (11.5-15.5) % Plt Count (150-450) k/uL MPV Neutrophils % % Lymphocytes % % Monocytes % % Eosinophils % % Basophils % % Neutrophils # (1.3-7.7) k/uL Lymphocytes # (1.0-4.8) k/uL Monocytes # (0-1.0) k/uL Eosinophils # (0-0.7) k/uL Basophils # (0-0.2) k/uL Hypochromasia Anisocytosis Macrocytosis PT 14.2 H (9.0-12.0) sec INR 1.4 H (<1.2) APTT 27.3 (22.0-30.0) sec Sodium (137-145) mmol/L Potassium (3.5-5.1) mmol/L Chloride (98-107) mmol/L Carbon Dioxide (22-30) mmol/L Anion Gap mmol/L BUN (9-20) mg/dL Creatinine (0.66-1.25) mg/dL Est GFR (CKD-EPI)AfAm (>60 ml/min/1.73 sqM) Est GFR (CKD-EPI)NonAf (>60 ml/min/1.73 sqM) Glucose (74-99) mg/dL Plasma Lactic Acid Carlos (0.7-2.0) mmol/L Calcium (8.4-10.2) mg/dL Magnesium (1.6-2.3) mg/dL Total Bilirubin (0.2-1.3) mg/dL AST (17-59) U/L ALT (4-49) U/L Alkaline Phosphatase (38-126) U/L Total Protein (6.3-8.2) g/dL Albumin (3.5-5.0) g/dL Lipase (23-300) U/L Urine Color Yellow Urine Appearance Cloudy (Clear) Urine pH 6.5 (5.0-8.0) Ur Specific [place] 1.017 (1.001-1.035) Urine Protein 1+ H (Negative) Urine Glucose (UA) Negative (Negative) Urine Ketones Trace H (Negative) Urine Blood Small H (Negative) Urine Nitrite Positive (Negative) Urine Bilirubin Negative (Negative) Urine Urobilinogen <2.0 (<2.0) mg/dL Ur Leukocyte Esterase Large H (Negative) Urine RBC 28 H (0-5) /hpf Urine WBC 79 H (0-5) /hpf Urine WBC Clumps Few H (None) /hpf Urine Bacteria Occasional H (None) /hpf Urine Mucus Occasional H (None) /hpf Coronavirus (PCR) Not Detected (Not Detectd) - EKG Data EKG Comments: Sinus tachycardia otherwise normal ECG, no signs of acute process. Ventricular rate 102, P are notable 140, QTC 372. Disposition Clinical Impression: UTI (urinary tract infection), Dehydration, Postoperative fever, Leukocytosis Disposition: Left Against Medical Advice Condition: Stable Instructions (If sedation given, give patient instructions): Urinary Tract I nfection in Men (ED) Additional Instructions: Please return to the Emergency Department if symptoms worsen or any other concerns. Take both antibiotics as prescribed. Please follow up with Dr. Ellington and Dr. Skelton tomorrow as discussed. Increase your water intake. Prescriptions: Sulfamethox-Tmp 800-160Mg [Bactrim Ds] 1 each PO Q12HR #20 tab Is patient prescribed a controlled substance at d/c from ED?: No Referrals: Mark Greene MD [Primary Care Provider] - 1-2 days Abdirizak Ellington MD [STAFF PHYSICIAN] - 1-2 days Channing Skelton MD [STAFF PHYSICIAN] - 1-2 days
[2021-01-07 15:14] LABS: Anisocytosis Slight; Basophils % (A) 0 %; Eosinophils # (A) 0.1 k/uL (0-0.7); Eosinophils % (A) 1 %; HCT 31.2 % (39.0-53.0); HGB 9.8 gm/dL (13.0-17.5); Hypochromasia Slight; Lymphocytes % (A) 11 %; MCHC 31.5 g/dL (31.0-37.0); MCV 104.8 fL (80.0-100.0); Macrocytosis Moderate; Mean Platelet Volume 6.8; Monocytes # (A) 1.3 k/uL (0-1.0); Monocytes % (A) 7 %; Neutrophils # (A) 14.2 k/uL (1.3-7.7); Neutrophils % (A) 79 %; Platelet Count 401 k/uL (150-450); RBC 2.98 m/uL (4.30-5.90); RDW 16.4 % (11.5-15.5)
--- NOTE | 2021-01-07 15:18 | XR ---
EXAMINATION TYPE: XR chest 2V DATE OF EXAM: 01/07/2021 COMPARISON: Chest x-ray 10 days from now. HISTORY: History of asthma and hypertension along with fever. TECHNIQUE: Frontal and lateral views of the chest are obtained. FINDINGS: There is chronic parenchymal change improved aeration left lung. New central right lower l ciro opacity. No pleural effusion or pneumothorax. The cardiac silhouette size is stable and within no rmal limits. The osseous structures are intact. IMPRESSION: Improved aeration left lung. New Focal subtle right lower lung opacity.
[2021-01-07 15:23] LABS: ALT 51 U/L (4-49); AST 62 U/L (17-59); African American GFR (CKD) >90 (>60 ml/min/1.73 sqM); Albumin 3.3 g/dL (3.5-5.0); Alkaline Phosphatase 146 U/L (38-126); Anion Gap 8 mmol/L; Blood Urea Nitrogen 7 mg/dL (9-20); Calcium 9.1 mg/dL (8.4-10.2); Carbon Dioxide 28 mmol/L (22-30); Chloride 97 mmol/L (98-107); Glucose 95 mg/dL (74-99); Lipase 56 U/L (23-300); Magnesium 1.5 mg/dL (1.6-2.3); Non-African American GFR(CKD) >90 (>60 ml/min/1.73 sqM); Potassium 4.6 mmol/L (3.5-5.1); Sodium 133 mmol/L (137-145); Total Bilirubin 0.8 mg/dL (0.2-1.3); Total Protein 6.5 g/dL (6.3-8.2)
[2021-01-07 15:28] LABS: INR 1.4 (<1.2); Partial Thromboplastin Time 27.3 sec (22.0-30.0); Prothrombin Time 14.2 sec (9.0-12.0)
[2021-01-07 15:38] VITALS: RESP 18
[2021-01-07 16:31] LABS: Appearance,Urine Cloudy (Clear); Bacteria,Urine Occasional /hpf; Bilirubin,Urine Negative (Negative); Blood,Urine Small (Negative); Color,Urine Yellow; Glucose,Urine (UA) Negative (Negative); Ketones,Urine Trace (Negative); Leukocyte Esterase,Urine Large (Negative); Mucus,Urine Occasional /hpf; Nitrite,Urine Positive (Negative); PH, Urine 6.5 (5.0-8.0); Protein,Urine 1+ (Negative); RBC,Urine 28 /hpf (0-5); Specific Gravity,Urine 1.017 (1.001-1.035); Urobilinogen,Urine <2.0 mg/dL (<2.0); WBC,Urine 79 /hpf (0-5)
--- NOTE | 2021-01-07 17:58 | CT ---
EXAMINATION TYPE: CT abdomen pelvis w con DATE OF EXAM: 01/07/2021 COMPARISON: CT 12/27/2020 HISTORY: Post op bowel surgery/fever CT DLP: 575.6 mGycm Automated exposure control for dose reduction was used. TECHNIQUE: Helical acquisition of images from the lung bases through the pelvis have been completed. CONTRAST: Performed without Oral Contrast and with IV Contrast, patient injected with 100 mL of Isovue 300. FINDINGS: Surgical clips are present along the anterior abdominal wall. LUNG BASES: There is been interval resolution of the patient's basilar effusions and associated atele ctasis. Lung bases are clear. AORTA: No significant abnormality is appreciated. LIVER/GB: No significant abnormality is appreciated. PANCREAS: No significant abnormality is seen. SPLEEN: No significant abnormality is seen. ADRENALS: No significant abnormality is seen. KIDNEYS: No significant interval change is seen. REPRODUCTIVE ORGANS: No significant abnormality is seen BOWEL: Small bowel folds shows a thickened appearance, colon also shows some thickened loops especia lly sigmoid region, postop change noted near the rectosigmoid, there is a lucency present in the garth on posterior to the prostate and urinary bladder which may be residual from patient's surgery, there is improvement in preoperative pelvic fluid collection at this level. FREE AIR: No Free Air visible. ASCITES: There is some free fluid present within the pelvis PELVIC ADENOPATHY: None visualized. RETROPERITONEAL ADENOPATHY: No Retroperitoneal Adenopathy visible. URINARY BLADDER: Catheterized. OSSEOUS STRUCTURES: Degenerative disc changes are present, lucency within the spinal canal at L5-S1 is consistent with disc herniation. IMPRESSION: INTERVAL SURGERY. MINIMAL FLUID PRESENT WITHIN THE PELVIS. CORRELATE FOR COLITIS, ENTERITIS.
[2021-01-07] MEDS ORDERED: LEVOFLOXACIN 500MG-D5W PMX 500 MG in DEXTROSE/WATER 1 100ML.BAG IVPB STA (18:37)
[2021-01-07 19:06] VITALS: TEMP 99
[2021-01-07] MEDS ORDERED: SULFAMETH-TMP DS STARTER PACK 2 TAB BTL PO STA (19:17)
[2021-01-07 20:02] VITALS: BP 118/75; PULSE 88
== END 2021-01-07 20:12 | disposition left against medical advice (07) ==
LOC: EC 14:07
DX: N39.0 Urinary tract infection, site not specified (principal); E86.0 Dehydration; D72.829 Elevated white blood cell count, unspecified; R50.82 Postprocedural fever; T81.89XA Other complications of procedures, not elsewhere classified, initial encounter; R00.2 Palpitations; J45.909 Unspecified asthma, uncomplicated; I10 Essential (primary) hypertension; Z87.891 Personal history of nicotine dependence; Z87.19 Personal history of other diseases of the digestive system; Z20.822 Contact with and (suspected) exposure to COVID-19; Z88.0 Allergy status to penicillin
CPT/HCPCS: 36415; 93005; 80053; 83605; 83690; 83735; 85025; 85610; 85730; 81001; 87040; 87086; 87635; 71046; 74177; 99285; 96365; 96361 ×4; J1956; Q9967

== ENCOUNTER → 2021-02-08 | Outpatient (CLI) | payer OTHER | END | disposition home or self-care (01) | LOC: RADUSWWP 07:31 | PROVIDERS: ATTEND Family Medicine | DX: I73.9 Peripheral vascular disease, unspecified (principal) | CPT/HCPCS: 93922 ==

== ENCOUNTER 2021-11-14 08:04 | Day surgery (SDC) | payer OTHER ==
[2021-11-13 09:48] VITALS: BMI 22.6
[~2021-11-14 08:04] MED LIST changes: -ACETAMINOPHEN TAB 500 MG TAB PO PRN; -DEXAMETHASONE SOD PHOSPHATE 4 MG/ML 1 ML VIAL IV ONE; -HEPARIN SODIUM,PORCINE/PF 5,000 UNIT/0.5 ML SYRINGE SQ PRN; +LACTATED RINGERS 1,000 ML IV SCH; +MIDAZOLAM 2 MG/2 ML VIAL IV PRN; -ONDANSETRON 4 MG/2 ML VIAL IVP ONE; -metroNIDAZOLE-NS PMX 500 MG in SALINE 1 100ML.BAG IVPB PRN
[2021-11-14 08:55] VITALS: RESP 16; TEMP 98
[2021-11-14] MEDS ORDERED: PROPOFOL 10 MG/ML 20 ML VIAL IV ONE (09:44)
--- NOTE | 2021-11-14 09:45 | P.GSHP ---
History of Present Illness H&P Date: 11/14/21 Chief Complaint: GI bleed This a 51-year-old male presents today for colonoscopy. Patient's had issues with him GI bleed. He has a previous history of diverticulitis with low anterior resection. Past Medical History Past Medical History: Asthma, Hypertension Additional Past Medical History / Comment(s): asthma as a child. "blood clots in stool". Diverticulitis. Varicose veins. Fall 11/29/20 w/ FX L2, L3, L4, & FX 3 Ribs; migraines, History of Any Multi-Drug Resistant Organisms: None Reported Past Surgical History: Bowel Resection, Orthopedic Surgery Additional Past Surgical History / Comment(s): lt knee arthrsocopy, rt shoulder reconstructed. Colonoscopy 12/06/20, exp laproscopy Past Anesthesia/Blood Transfusion Reactions: No Reported Reaction Smoking Status: Former smoker - Past Family History Mother Family Medical History: Cancer Additional Family Medical History / Comment(s): liver cancer Father Family Medical History: Cancer Additional Family Medical History / Comment(s): colon cancer Medications and Allergies Home Medications Medication Instructions Recorded Confirmed Type Multivitamin/Iron/Folic Acid 1 each PO DAILY 12/23/18 11/13/21 History [Centrum Adults Tablet] Folic Acid 1 mg PO DAILY 01/07/21 11/13/21 History Magnesium Oxide [Mag-Ox] 400 mg PO DAILY 01/07/21 11/13/21 History Potassium Chloride ER [K-Dur 10] 10 meq PO DAILY 01/07/21 11/13/21 History HYDROcodone/APAP 5-325MG [[place] 0.5 tab PO BID PRN 11/13/21 11/13/21 History 5-325] Thiamine [Vitamin B-1] 100 mg PO DAILY 11/13/21 11/13/21 History Allergies Allergy/AdvReac Type Severity Reaction Status Date / Time Penicillins Allergy Unknown Verified 11/14/21 08:40 Childhood Surgical - Exam Vital Signs Temp Pulse Resp BP Pulse Ox 98.0 F 87 16 146/86 96 11/14/21 08:44 11/14/21 08:44 11/14/21 08:44 11/14/21 08:44 11/14/21 08:44 - General well developed, well nourished, no distress - Eyes PERRL - ENT normal pinna - Neck no masses - Respiratory normal expansion - Cardiovascular Rhythm: regular - Abdomen Abdomen: soft, non tender Assessment and Plan Assessment: History of GI bleed. We'll perform colonoscopy.
--- NOTE | 2021-11-14 09:57 | P.OP ---
Date of Procedure: 11/14/21 Preoperative Diagnosis: GI bleed Postoperative Diagnosis: Mild diverticulosis Minimal internal hemorrhoids Procedure(s) Performed: Colonoscopy Anesthesia: MAC Surgeon: Abdirizak Ellington Pathology: none sent Condition: stable Disposition: PACU Description of Procedure: The patient's placed on the endoscopy table in the lateral position. He received IV sedation. Digital rectal exam was performed which revealed a few internal hemorrhoids. Flexible colonoscope was then placed patient anus and passed throughout the entire colon. The ileocecal valve was visually's. The cecum, ascending and transverse colon appeared normal. In the descending colon was a few scattered diverticula. Patient had a previous sigmoid resection. The anastomosis was visualized. There is no inflammation around the anastomosis. Scope was brought back the rectum and this appeared normal. Scope withdrawn for patient. There is known to any active GI bleed. Presumed patient may benefit from internal hemorrhoids or diverticular bleeding..
[2021-11-14 10:17] VITALS: BP 124/87; PULSE 100
== END 2021-11-14 10:39 | disposition home or self-care (01) ==
LOC: ORWHC2ENDO 08:04
PROVIDERS: ATTEND Surgery
DX: K57.31 Diverticulosis of large intestine without perforation or abscess with bleeding (principal); K64.8 Other hemorrhoids; Z87.19 Personal history of other diseases of the digestive system; J45.909 Unspecified asthma, uncomplicated; I10 Essential (primary) hypertension; Z90.49 Acquired absence of other specified parts of digestive tract
CPT/HCPCS: 45378; J2704

== ENCOUNTER → 2021-12-25 | Outpatient (CLI) | payer OTHER ==
--- NOTE | 2021-12-25 21:14 | US ---
EXAMINATION TYPE: US abdomen complete DATE OF EXAM: 12/25/2021 COMPARISON: CT 2020, US 2019 CLINICAL HISTORY: R94.5 ABNORMAL RESULTS OF LIVER FUNCTION STUDIES. EXAM MEASUREMENTS: Liver Length: 15.2 cm Gallbladder Wall: 0.2 cm CBD: 0.7 cm Spleen: 9.8 cm Right Kidney: 11.8 x 4.9 x 4.9 cm Left Kidney: 10.8 x 5.3 x 5.2 cm Pancreas: duct seen, head and tail limited by overlying midline bowel gas Liver: attenuating, increased echogenicity, heterogeneous Gallbladder: wnl Evidence for sonographic Lynn's sign: no CBD: dilated Spleen: wnl Right Kidney: 2.3cm cyst lateral inferior pole, 1.5cm hypoechoic area superior pole these appear t o be simple cysts. Left Kidney: wnl Upper IVC: wnl Abd Aorta: wnl IMPRESSION: 1. Right renal cysts. 2. Fatty infiltration of the liver. 3. Minimal prominence of the common bile duct for the patient's age
== END | disposition home or self-care (01) ==
LOC: RADUSWWP 08:51
PROVIDERS: ATTEND Internal Medicine Hematology & Oncology
DX: N28.1 Cyst of kidney, acquired (principal); K76.0 Fatty (change of) liver, not elsewhere classified
CPT/HCPCS: 76700

== ENCOUNTER 2022-01-06 10:41 | Day surgery (SDC) | payer OTHER ==
[2022-01-02 11:53] VITALS: BMI 23.2
[~2022-01-06 10:41] MED LIST changes: -LACTATED RINGERS 1,000 ML IV SCH; -LIDOCAINE 1% (10MG/ML) FOR IV START INTRADERMA PRN; -MIDAZOLAM 2 MG/2 ML VIAL IV PRN; +Pre Op ABX Message 1 EACH MISC MISCELLANE ONE
[2022-01-06] MEDS ORDERED: ONDANSETRON 4 MG/2 ML VIAL IVP ONE (10:54)
[2022-01-06] MEDS ORDERED: HYDROmorphone 0.5 MG/0.5 ML SYRINGE IVP PRN (10:54)
[2022-01-06] MEDS ORDERED: LACTATED RINGERS 1,000 ML IV SCH (10:54)
[2022-01-06] MEDS ORDERED: MIDAZOLAM 2 MG/2 ML VIAL IV PRN (10:54)
[2022-01-06] MEDS ORDERED: DEXAMETHASONE SOD PHOSPHATE 4 MG/ML 1 ML VIAL IV ONE (10:54)
[2022-01-06] MEDS ORDERED: SCOPOLAMINE 1 MG/72 HR PATCH TRANSDERM ONE (10:54)
[2022-01-06 11:47] LABS: HCT 36.9 % (39.0-53.0); HGB 11.9 gm/dL (13.0-17.5); MCH 36.8 pg (25.0-35.0); MCHC 32.3 g/dL (31.0-37.0); MCV 113.8 fL (80.0-100.0); Macrocytosis Marked; Mean Platelet Volume 7.8; RBC 3.24 m/uL (4.30-5.90); RDW 14.2 % (11.5-15.5)
[2022-01-06 11:48] LABS: Platelet Count 87 k/uL (150-450)
[2022-01-06] MEDS ORDERED: fentaNYL (PF) 50 MCG/ML 2 ML AMP IVP ONE (12:05)
--- NOTE | 2022-01-06 12:53 | P.ANPRN ---
Procedure Note - Anesthesia - Nerve Block Performed Left Interscalene Single Time Out Performed: Yes Date of Procedure: 01/06/22 Procedure Start Time: 12:04 Procedure Stop Time: 12:12 Location of Patient: PreOp Indication: Requested by Surgeon Specifically requested for management of pain by DrDesirae: Fadia Nagel Sedation Type: Sedate with meaningful contact maintained Preparation: Sterile Prep Position: Supine Needle Types: Pajunk Needle Gauge: 21 Ultrasound used to visualize needle placement: Yes Ultrasound used to observe medication spread: Yes Injectate: 0.5% Ropivacaine (see comment for volume) (25+4 mg dexamethason) Blood Aspirated: No Pain Paresthesia on Injection Noted: No Resistance on Injection: Normal Image Stored and Saved: Yes Events: Uneventful and Well Tolerated
[2022-01-06] MEDS ORDERED: PROPOFOL 10 MG/ML 20 ML VIAL IV ONE (13:00)
[2022-01-06] MEDS ORDERED: fentaNYL (PF) 50 MCG/ML 2 ML AMP ONE (13:00)
[2022-01-06] MEDS ORDERED: DEXAMETHASONE SOD PHOSPHATE 4 MG/ML 1 ML VIAL ONE (13:00)
[2022-01-06] MEDS ORDERED: LIDOCAINE 2% INJ 20 MG/ML (2 ML VIAL) ONE (13:00)
[2022-01-06] MEDS ORDERED: MIDAZOLAM 2 MG/2 ML VIAL ONE (13:00)
[2022-01-06] MEDS ORDERED: SUCCINYLCHOLINE CHLORIDE 100 MG/5 ML SYR IV ONE (13:00)
[2022-01-06] MEDS ORDERED: ROPIVACAINE 5 MG/ML 30 ML VIAL ONE (13:00)
[2022-01-06] MEDS ORDERED: EPINEPHrine (PF) 1 ML in SODIUM CHLORIDE 0.9% IRRIGATIO 3,000 ML IRRIGATION ONE ×4 (13:02)
[2022-01-06] MEDS ORDERED: SODIUM CHLORIDE 0.9% 100 ML with ceFAZolin 2,000 MG IV ONE ×2 (13:02)
[2022-01-06] MEDS ORDERED: LACTATED RINGERS 1,000 ML IV ONE (14:03)
[2022-01-06 15:27] VITALS: TEMP 97.2
--- NOTE | 2022-01-06 15:37 | P.OP ---
Date of Procedure: 01/06/22 Preoperative Diagnosis: Left shoulder rotator cuff tear Postoperative Diagnosis: 1 left shoulder complete rotator cuff tear 2 left shoulder biceps tendinitis 3 left glenohumeral arthritis, grade 3 Procedure(s) Performed: 1 left arthroscopic rotator cuff repair 2 left biceps tendon tenotomy 3 left shoulder glenohumeral chondroplasty Anesthesia: rowan LIAO Surgeon: Fadia Nagel Estimated Blood Loss (ml): 50 Condition: stable Disposition: PACU Indications for Procedure: Curry is a 51-year-old male who has a long history of shoulder pain. He states that he has previous history of a dislocation and feels like his shoulder pops in and out. On exam he did not seem to have any instability. On MRI he did have evidence of a rotator cuff tear however minimal evidence of repeat instability. We had a long discussion about his treatment options, and he would like to proceed with a rotator cuff repair with possible biceps tenotomy. Description of Procedure: The patient, operative extremity, and procedure were identified in the preoperative holding area. After informed consent was obtained the patient received regional block by the anesthesia team. He was then brought back to the operating room where he was intubated and placed under general anesthesia. He was then positioned in a lateral decubitus position. The arm was then carefully wrapped in the sleeve with a soft roll pad in the palm of the hand. This was suspended with 10 pounds of traction. The extremity was then prepped and draped in normal sterile fashion and the sleeve was overwrapped with Ioban. A formal timeout was performed. A posterior portal was then made with an 11 blade and the trocar. The camera was then inserted and the glenohumeral joint was inspected. I substance tendon showed a fair amount of fraying and synovitis. There was grade 3 chondral malacia on the humeral head as well as the glenoid. An anterior portal was made with a spinal needle followed by an 11 blade. A trocar was inserted into the portal. A cautery device was utilized to debride the synovitis in the joint. The decision was then made to do a biceps tenotomy. This was performed with the cautery device. The rough edges of the arthritic areas were also smoothed out using the shaver. The subscapularis was identified and found to be only partially torn. The decision was made to debride only rather than repair. The 2 portals were then shifted into the subacromial space. A thorough bursectomy was performed to reveal the rotator cuff below. It was found to be completely torn in the anterior third of the supraspinatus. This was mobilized and the grasper was utilized to make sure that it would reach the footprint. The footprint was then carefully debrided with the shaver. The scorpion device was then utilized to thread a fiber tape through the torn aspect of the rotator cuff in a dress type fashion. The 2 ends of the fiber tape were then pulled laterally to confirm that the cuff would reach the footprint. A small area was cleared off using the cautery device for the insertion of the anchor. The awl for a 4.75 anchor was introduced into the bone which was actually quite soft. The decision was then made to insert a 5.5 mm anchor instead. The anchor tip was placed gently and the 2 ends of the suture tape were pulled sequentially to draw the rotator cuff laterally. The anchor was then inserted to set the tension and secure the rape. The 2 ends of the fiber tape were cut with a small tail. Examination of the rotator cuff repair revealed that the rotator cuff moved in concert with the arm. All instruments were then removed and the portal sites were closed with 4-0 nylon and dressed with Adaptic 4 x 4's ABDs and tape. Was placed in a slingshot splint and aroused by the anesthesia team and brought back to PACU in stable condition. Plan - Discharge Summary Discharge Rx Participant: No New Discharge Prescriptions: No Action Multivitamin/Iron/Folic Acid [Centrum Adults Tablet] 1 each PO DAILY Potassium Chloride ER [K-Dur 10] 10 meq PO DAILY Magnesium Oxide [Mag-Ox] 400 mg PO DAILY Folic Acid 1 mg PO DAILY Thiamine [Vitamin B-1] 100 mg PO DAILY HYDROcodone/APAP 5-325MG [[place] 5-325] 0.5 tab PO BID PRN PRN Reason: Pain Discharge Medication List Multivitamin/Iron/Folic Acid [Centrum Adults Tablet] 1 each PO DAILY 12/23/18 [History] Folic Acid 1 mg PO DAILY 01/07/21 [History] Magnesium Oxide [Mag-Ox] 400 mg PO DAILY 01/07/21 [History] Potassium Chloride ER [K-Dur 10] 10 meq PO DAILY 01/07/21 [History] HYDROcodone/APAP 5-325MG [[place] 5-325] 0.5 tab PO BID PRN 11/13/21 [History] Thiamine [Vitamin B-1] 100 mg PO DAILY 11/13/21 [History]
[2022-01-06 16:40] VITALS: RESP 16
[2022-01-06 17:04] VITALS: BP 143/88; PULSE 90
== END 2022-01-06 17:50 | disposition home or self-care (01) ==
LOC: OR 10:41
PROVIDERS: ATTEND Orthopaedic Surgery Hand Surgery
DX: M75.122 Complete rotator cuff tear or rupture of left shoulder, not specified as traumatic (principal); M75.22 Bicipital tendinitis, left shoulder; M19.012 Primary osteoarthritis, left shoulder; I10 Essential (primary) hypertension; Z98.890 Other specified postprocedural states; F10.11 Alcohol abuse, in remission; Z87.891 Personal history of nicotine dependence; Z86.73 Personal history of transient ischemic attack (TIA), and cerebral infarction without residual deficits; Z80.0 Family history of malignant neoplasm of digestive organs; Z79.891 Long term (current) use of opiate analgesic; Z88.0 Allergy status to penicillin
CPT/HCPCS: 64415; 76942; 85027; 29826; 29827; C1713 ×3; C1894; J2250; J1100; J2405; J0690; J0171; J3010; J2795; J0330; J2704; J2001

== ENCOUNTER 2022-03-16 01:59 | Emergency (ER) | payer OTHER ==
[2022-03-16 02:19] VITALS: RESP 16; TEMP 98.1
[2022-03-16] MEDS ORDERED: PANTOPRAZOLE 40 MG/10 ML VIAL IVP STA (02:38)
--- NOTE | 2022-03-16 03:20 | XR ---
EXAMINATION TYPE: XR chest 1V portable DATE OF EXAM: 03/16/2022 COMPARISON: NONE HISTORY: Chest pain TECHNIQUE: FINDINGS: Heart is normal. Lungs are clear of infiltrate. No heart failure. There are no hilar masses . Costophrenic angles are clear. There are chest leads. There is previous right shoulder surgery. IMPRESSION: No active cardiopulmonary disease. No adverse change compared to old exam.
[2022-03-16 03:40] LABS: ALT 26 U/L (4-49); AST 89 U/L (17-59); African American GFR (CKD) >90 (>60 ml/min/1.73 sqM); Alkaline Phosphatase 116 U/L (38-126); Anion Gap 11 mmol/L; Blood Urea Nitrogen 21 mg/dL (9-20); Calcium 8.7 mg/dL (8.4-10.2); Carbon Dioxide 24 mmol/L (22-30); Chloride 103 mmol/L (98-107); Glucose 92 mg/dL (74-99); Magnesium 1.6 mg/dL (1.6-2.3); Non-African American GFR(CKD) >90 (>60 ml/min/1.73 sqM); Potassium 4.2 mmol/L (3.5-5.1); Sodium 138 mmol/L (137-145); Total Protein 6.5 g/dL (6.3-8.2)
[2022-03-16 03:42] LABS: INR 1.6 (<1.2); Partial Thromboplastin Time 26.8 sec (22.0-30.0); Prothrombin Time 16.4 sec (9.0-12.0)
[2022-03-16 03:49] LABS: Basophils % (A) 1 %; Eosinophils # (A) 0.1 k/uL (0-0.7); Eosinophils % (A) 1 %; HCT 25.1 % (39.0-53.0); Hypochromasia Slight; Lymphocytes # (A) 1.6 k/uL (1.0-4.8); Lymphocytes % (A) 37 %; MCH 37.9 pg (25.0-35.0); MCHC 31.7 g/dL (31.0-37.0); MCV 119.8 fL (80.0-100.0); Macrocytosis Marked; Mean Platelet Volume 8.9; Monocytes # (A) 0.3 k/uL (0-1.0); Monocytes % (A) 8 %; Neutrophils # (A) 2.2 k/uL (1.3-7.7); Neutrophils % (A) 51 %; RDW 14.9 % (11.5-15.5); WBC 4.3 k/uL (3.8-10.6)
[2022-03-16 04:25] LABS: Target Cells Present
[2022-03-16 04:26] LABS: Anisocytosis (M) Present; Platelet Count 67 k/uL (150-450)
[2022-03-16] MEDS ORDERED: SODIUM CHLORIDE 0.9% 500 ML 500 ML IV STA (05:29)
[2022-03-16] MEDS ORDERED: SODIUM CHLORIDE 0.9% 1,000 ML IV STA (05:29)
--- NOTE | 2022-03-16 05:53 | ED ---
GI Bleed HPI - General Chief complaint: GI Bleed Stated complaint: GI bleed Time Seen by Provider: 03/16/22 02:05 Source: patient Mode of arrival: EMS Limitations: no limitations - History of Present Illness Initial comments: This patient is a 51-year-old who presents to have evaluation for gastrointestinal bleeding. The patient states that he started having vomiting with coffee-ground emesis. Patient also then had bowel movements with some dark tarry stool. He has had some mild abdominal burning but denies jose pain. MD complaint: coffee ground emesis, melena -: hour(s) Radiation: none Quality: burning Consistency: intermittent Improves with: none Worsens with: none Context: alcohol abuse Associated Symptoms: denies other symptoms, nausea, vomiting - Related Data Home Medications Medication Instructions Recorded Confirmed Multivitamin/Iron/Folic Acid 1 each PO DAILY 12/23/18 01/02/22 [Centrum Adults Tablet] Folic Acid 1 mg PO DAILY 01/07/21 01/06/22 Magnesium Oxide [Mag-Ox] 400 mg PO DAILY 01/07/21 01/06/22 Potassium Chloride ER [K-Dur 10] 10 meq PO DAILY 01/07/21 01/06/22 HYDROcodone/APAP 5-325MG [[place] 0.5 tab PO BID PRN 11/13/21 01/06/22 5-325] Thiamine [Vitamin B-1] 100 mg PO DAILY 11/13/21 01/06/22 Allergies Allergy/AdvReac Type Severity Reaction Status Date / Time Penicillins Allergy Unknown Verified 01/02/22 11:36 Childhood Review of Systems ROS Statement: Those systems with pertinent positive or pertinent negative responses have been documented in the HPI. ROS Other: All systems not noted in ROS Statement are negative. Constitutional: Denies: fever, chills Respiratory: Denies: cough, dyspnea Cardiovascular: Reports: palpitations. Denies: chest pain, dyspnea on exertion, orthopnea, edema Gastrointestinal: Reports: nausea, vomiting, hematemesis, melena. Denies: abdominal pain, diarrhea, constipation, hematochezia Genitourinary: Denies: dysuria, hematuria, testicular pain Musculoskeletal: Denies: back pain Skin: Denies: rash Neurological: Denies: headache, weakness, numbness Hematological/Lymphatic: Denies: easy bleeding Past Medical History Past Medical History: Asthma, Hypertension Additional Past Medical History / Comment(s): asthma as a child. "blood clots in stool". Diverticulitis. Varicose veins. Fall 11/29/20 w/ FX L2, L3, L4, & FX 3 Ribs; migraines, History of Any Multi-Drug Resistant Organisms: None Reported Past Surgical History: Bowel Resection, Orthopedic Surgery Additional Past Surgical History / Comment(s): lt knee arthrsocopy, rt shoulder reconstructed. Colonoscopy 12/06/20, exp laproscopy Past Anesthesia/Blood Transfusion Reactions: No Reported Reaction Past Psychological History: No Psychological Hx Reported Smoking Status: Former smoker Past Alcohol Use History: Occasional Past Drug Use History: None Reported - Past Family History Mother Family Medical History: Cancer Additional Family Medical History / Comment(s): liver cancer Father Family Medical History: Cancer Additional Family Medical History / Comment(s): colon cancer General Exam Limitations: no limitations General appearance: alert, in no apparent distress Head exam: Present: atraumatic, normocephalic Eye exam: Present: normal appearance. Absent: scleral icterus, conjunctival injection Neck exam: Present: normal inspection Respiratory exam: Present: normal lung sounds bilaterally. Absent: respiratory distress, wheezes, rales, rhonchi, stridor Cardiovascular Exam: Present: normal rhythm, tachycardia (108 at my exam), normal heart sounds. Absent: systolic murmur, diastolic murmur, rubs, gallop GI/Abdominal exam: Present: soft. Absent: distended, tenderness, guarding, rebound, rigid, mass, pulsatile mass Rectal exam: Present: normal inspection, black stool. Absent: bloody stool, fecal impaction Extremities exam: Present: normal inspection, normal capillary refill. Absent: pedal edema Back exam: Present: normal inspection Neurological exam: Present: alert Skin exam: Present: warm, dry, intact, pallor. Absent: rash Course Vital Signs 03/16/22 03/16/22 03/16/22 02:06 05:15 06:00 Temperature 98.1 F Pulse Rate 109 H 103 H 113 H Respiratory 16 16 16 Rate Blood Pressure 100/68 99/72 116/75 O2 Sat by Pulse 100 Oximetry 03/16/22 07:34 Temperature Pulse Rate 103 H Respiratory 16 Rate Blood Pressure 124/82 O2 Sat by Pulse 100 Oximetry Medical Decision Making - Medical Decision Making Patient's 51-year-old man who presents with GI bleeding. There is history of alcohol use. Patient's labs do reveal some anemia. Discussed further evaluation and treatment including need for admission and probable upper and lower endoscopy. Given possibility of varices patient should be seen by gastroenterology and there is no coverage this weekend. Discussed transfer and patient requests to go to [facility] - Lab Data Result diagrams: 03/16/22 03:01 03/16/22 03:01 Lab Results 03/16/22 03/16/22 03/16/22 Range/Units 02:39 02:57 03:01 WBC 4.3 (3.8-10.6) k/uL RBC 2.10 L (4.30-5.90) m/uL Hgb 8.0 L (13.0-17.5) gm/dL Hct 25.1 L (39.0-53.0) % MCV 119.8 H (80.0-100.0) fL MCH 37.9 H (25.0-35.0) pg MCHC 31.7 (31.0-37.0) g/dL RDW 14.9 (11.5-15.5) % Plt Count 67 L (150-450) k/uL MPV 8.9 Neutrophils % 51 % Lymphocytes % 37 % Monocytes % 8 % Eosinophils % 1 % Basophils % 1 % Neutrophils # 2.2 (1.3-7.7) k/uL Lymphocytes # 1.6 (1.0-4.8) k/uL Monocytes # 0.3 (0-1.0) k/uL Eosinophils # 0.1 (0-0.7) k/uL Basophils # 0.0 (0-0.2) k/uL Manual Slide Review Performed Hypochromasia Slight Anisocytosis (manual) Present Macrocytosis Marked A Target Cells Present PT (9.0-12.0) sec INR (<1.2) APTT (22.0-30.0) sec Sodium (137-145) mmol/L Potassium (3.5-5.1) mmol/L Chloride (98-107) mmol/L Carbon Dioxide (22-30) mmol/L Anion Gap mmol/L BUN (9-20) mg/dL Creatinine (0.66-1.25) mg/dL Est GFR (CKD-EPI)AfAm (>60 ml/min/1.73 sqM) Est GFR (CKD-EPI)NonAf (>60 ml/min/1.73 sqM) Glucose (74-99) mg/dL Lactic Ac Sepsis Rflx Plasma Lactic Acid Carlos (0.7-2.0) mmol/L Calcium (8.4-10.2) mg/dL Magnesium (1.6-2.3) mg/dL Total Bilirubin (0.2-1.3) mg/dL AST (17-59) U/L ALT (4-49) U/L Alkaline Phosphatase (38-126) U/L Troponin I (0.000-0.034) ng/mL Total Protein (6.3-8.2) g/dL Albumin (3.5-5.0) g/dL Stool Occult Blood Positive (Negative) Blood Type A Positive Blood Type Recheck A Pos Bld Type Recheck Status No Antibody Screen NEGATIVE Spec Expiration Date 03/19/2022 - 235603/16/22 03/16/22 03/16/22 Range/Units 03:01 03:01 03:01 WBC (3.8-10.6) k/uL RBC (4.30-5.90) m/uL Hgb (13.0-17.5) gm/dL Hct (39.0-53.0) % MCV (80.0-100.0) fL MCH (25.0-35.0) pg MCHC (31.0-37.0) g/dL RDW (11.5-15.5) % Plt Count (150-450) k/uL MPV Neutrophils % % Lymphocytes % % Monocytes % % Eosinophils % % Basophils % % Neutrophils # (1.3-7.7) k/uL Lymphocytes # (1.0-4.8) k/uL Monocytes # (0-1.0) k/uL Eosinophils # (0-0.7) k/uL Basophils # (0-0.2) k/uL Manual Slide Review Hypochromasia Anisocytosis (manual) Macrocytosis Target Cells PT 16.4 H (9.0-12.0) sec INR 1.6 H (<1.2) APTT 26.8 (22.0-30.0) sec Sodium 138 (137-145) mmol/L Potassium 4.2 (3.5-5.1) mmol/L Chloride 103 (98-107) mmol/L Carbon Dioxide 24 (22-30) mmol/L Anion Gap 11 mmol/L BUN 21 H (9-20) mg/dL Creatinine 0.51 L (0.66-1.25) mg/dL Est GFR (CKD-EPI)AfAm >90 (>60 ml/min/1.73 sqM) Est GFR (CKD-EPI)NonAf >90 (>60 ml/min/1.73 sqM) Glucose 92 (74-99) mg/dL Lactic Ac Sepsis Rflx Plasma Lactic Acid Carlos 3.8 H* (0.7-2.0) mmol/L Calcium 8.7 (8.4-10.2) mg/dL Magnesium 1.6 (1.6-2.3) mg/dL Total Bilirubin 3.0 H (0.2-1.3) mg/dL AST 89 H (17-59) U/L ALT 26 (4-49) U/L Alkaline Phosphatase 116 (38-126) U/L Troponin I (0.000-0.034) ng/mL Total Protein 6.5 (6.3-8.2) g/dL Albumin 3.0 L (3.5-5.0) g/dL Stool Occult Blood (Negative) Blood Type Blood Type Recheck Bld Type Recheck Status Antibody Screen Spec Expiration Date 03/16/22 03/16/22 Range/Units 03:01 05:06 WBC (3.8-10.6) k/uL RBC (4.30-5.90) m/uL Hgb (13.0-17.5) gm/dL Hct (39.0-53.0) % MCV (80.0-100.0) fL MCH (25.0-35.0) pg MCHC (31.0-37.0) g/dL RDW (11.5-15.5) % Plt Count (150-450) k/uL MPV Neutrophils % % Lymphocytes % % Monocytes % % Eosinophils % % Basophils % % Neutrophils # (1.3-7.7) k/uL Lymphocytes # (1.0-4.8) k/uL Monocytes # (0-1.0) k/uL Eosinophils # (0-0.7) k/uL Basophils # (0-0.2) k/uL Manual Slide Review Hypochromasia Anisocytosis (manual) Macrocytosis Target Cells PT (9.0-12.0) sec INR (<1.2) APTT (22.0-30.0) sec Sodium (137-145) mmol/L Potassium (3.5-5.1) mmol/L Chloride (98-107) mmol/L Carbon Dioxide (22-30) mmol/L Anion Gap mmol/L BUN (9-20) mg/dL Creatinine (0.66-1.25) mg/dL Est GFR (CKD-EPI)AfAm (>60 ml/min/1.73 sqM) Est GFR (CKD-EPI)NonAf (>60 ml/min/1.73 sqM) Glucose (74-99) mg/dL Lactic Ac Sepsis Rflx Y Plasma Lactic Acid Carlos (0.7-2.0) mmol/L Calcium (8.4-10.2) mg/dL Magnesium (1.6-2.3) mg/dL Total Bilirubin (0.2-1.3) mg/dL AST (17-59) U/L ALT (4-49) U/L Alkaline Phosphatase (38-126) U/L Troponin I <0.012 (0.000-0.034) ng/mL Total Protein (6.3-8.2) g/dL Albumin (3.5-5.0) g/dL Stool Occult Blood (Negative) Blood Type Blood Type Recheck Bld Type Recheck Status Antibody Screen Spec Expiration Date Disposition Clinical Impression: GI bleeding, Anemia Disposition: OTHER INSTITUTION NOT DEFINED Condition: Serious Is patient prescribed a controlled substance at d/c from ED?: No Referrals: Mark Greene MD [Primary Care Provider] - 1-2 days - Out of Hospital Transfer - Req. Specs Out of Hospital Transfer - Requested Specifics: Other Emergency Center
[2022-03-16] MEDS ORDERED: TRANEXAMIC ACID IN NACL,ISO-OS 1,000 MG in SALINE 1 100ML.BAG IVPB ONE (06:13)
[2022-03-16] MEDS ORDERED: PHYTONADIONE 2 MG in SODIUM CHLORIDE 0.9% 50 ML IVPB STA (06:13)
[2022-03-16] MEDS ORDERED: HYDROmorphone 0.5 MG/0.5 ML SYRINGE IVP STA (07:08)
[2022-03-16 07:36] VITALS: BP 124/82; PULSE 103
== END 2022-03-16 07:36 | disposition other institution (70) ==
LOC: EC 01:59
DX: K92.2 Gastrointestinal hemorrhage, unspecified (principal); D64.9 Anemia, unspecified; I10 Essential (primary) hypertension; J45.909 Unspecified asthma, uncomplicated; Z87.891 Personal history of nicotine dependence; Z88.0 Allergy status to penicillin
CPT/HCPCS: 36415; 86900; 86901; 80053; 83605; 83735; 84484; 85025; 85610; 85730; 86850; 82272; 71045; 99285; 96365; 96368; 96375; 96361; J3430; C9113; J1170

== ENCOUNTER 2022-04-09 20:03 | Emergency (ER) | payer OTHER ==
[2022-04-09 20:18] VITALS: TEMP 98
--- NOTE | 2022-04-09 20:52 | ED ---
Extremity Problem HPI - General Chief complaint: Extremity Problem,Nontraumatic Stated complaint: Right knee and leg swollen Time Seen by Provider: 04/09/22 20:19 Source: patient, family, RN notes reviewed Mode of arrival: ambulatory Limitations: no limitations - History of Present Illness Initial comments: This is a 51-year-old male who presents to the emergency department for bilateral lower extremity pain and swelling Patient states that the last week, he has had progressive pain and swelling in the bilateral lower extremities. He injured his knee approximately one week ago, and had an x-ray in his primary care provider's office 2 days ago. He was told that the x-ray had no acute bony abnormalities. He has since been wearing a knee brace. Since wearing the knee brace, he believes that the pain and swelling has gotten worse. He has also developed skin changes and spider veins on the feet. Notes that it is painful to walk as well. Denies any chest pain or shortness of breath. Denies any fevers, chills, sore throat, cough, dyspnea, chest pain, palpitations, abdominal pain, nausea, vomiting, diarrhea, back pain, or heada ches. MD Complaint: extremity pain, extremity swelling Onset/Timin -: week(s) Location: bilateral lower extremity Worsens with: weight bearing, walking Associated Symptoms: denies other symptoms - Related Data Home Medications Medication Instructions Recorded Confirmed Multivitamin/Iron/Folic Acid 1 tab PO DAILY 12/23/18 04/09/22 [Centrum Adults Tablet] Folic Acid 1 mg PO DAILY 01/07/21 04/09/22 Magnesium Oxide [Mag-Ox] 400 mg PO DAILY 01/07/21 04/09/22 Potassium Chloride ER [K-Dur 10] 10 meq PO DAILY 01/07/21 04/09/22 HYDROcodone/APAP 5-325MG [[place] 1 tab PO DAILY PRN 11/13/21 04/09/22 5-325] Thiamine [Vitamin B-1] 100 mg PO DAILY 11/13/21 04/09/22 Pantoprazole Sodium 40 mg PO DAILY 04/09/22 04/09/22 Previous Rx's Medication Instructions Recorded Furosemide [Lasix] 20 mg PO DAILY #30 tab 04/09/22 Allergies Allergy/AdvReac Type Severity Reaction Status Date / Time Penicillins Allergy Unknown Verified 04/09/22 22:21 Childhood Review of Systems ROS Statement: Those systems with pertinent positive or pertinent negative responses have been documented in the HPI. ROS Other: All systems not noted in ROS Statement are negative. Past Medical History Past Medical History: Asthma, Hypertension Additional Past Medical History / Comment(s): asthma as a child. "blood clots in stool". Diverticulitis. Varicose veins. Fall 11/29/20 w/ FX L2, L3, L4, & FX 3 Ribs; migraines, History of Any Multi-Drug Resistant Organisms: None Reported Past Surgical History: Bowel Resection, Orthopedic Surgery Additional Past Surgical History / Comment(s): lt knee arthrsocopy, rt shoulder reconstructed. Colonoscopy 12/06/20, exp laproscopy Past Anesthesia/Blood Transfusion Reactions: No Reported Reaction Past Psychological History: No Psychological Hx Reported Smoking Status: Former smoker Past Alcohol Use History: Occasional Past Drug Use History: None Reported - Past Family History Mother Family Medical History: Cancer Additional Family Medical History / Comment(s): liver cancer Father Family Medical History: Cancer Additional Family Medical History / Comment(s): colon cancer General Exam Limitations: no limitations General appearance: alert, in no apparent distress Head exam: Present: atraumatic, normocephalic, normal inspection Respiratory exam: Present: normal lung sounds bilaterally. Absent: respiratory distress, wheezes, rales, rhonchi, stridor Cardiovascular Exam: Present: regular rate, normal rhythm, normal heart sounds. Absent: systolic murmur, diastolic murmur, rubs, gallop, clicks Extremities exam: Present: calf tenderness, other (2+ pitting edema in the bilateral lower extremities with chronic venous stasis changes. The right side is worse than the left. Telangiectasias on the feet bilaterally. 2+ dorsalis pedis and tibialis posterior pulses bilaterally. Capillary refill less than 1 second.) Right Knee exam: Present: tenderness, swelling Course Vital Signs 04/09/22 20:15 Temperature 98 F Pulse Rate 92 Respiratory 16 Rate Blood Pressure 132/87 O2 Sat by Pulse 98 Oximetry Medical Decision Making - Medical Decision Making This is a 51-year-old male who presents to the emergency department for bilateral lower extremity pain and swelling. Lab work was nonactionable and stable from prior values. There is no sign of congestive heart failure based on the BNP value. Duplex US of the bilateral lower extremities obtained, this revealed no signs of a DVT. The patient does appear to have chronic venous stasis changes based on the appearance of his lower extremities. He is most likely experiencing dependent edema. We also discussed, that after a knee injury, it is common to have fluid around the joint. Wearing the knee brace compresses this fluid, and can cause it to travel distally, leading to an increase in swelling of the right lower extremity. Patient was given a prescription for Lasix to help with the swelling. He was also given a knee immobilizer in the emergency department. His insurance is no longer accepted at [facility]. Information provided for [facility], as the patient has multiple orthopedic injuries that have required surgical repair. If the knee does not improve, I advised he follow-up with orthopedics for further evaluation. Additionally, he was given information for alternative primary care providers, as his current primary care provider is no longer practicing. In addition to the lasix, he was instructed to elevate the legs as much as possible and consider using compression stockings for additional symptomatic management. Return precautions reviewed in depth, the patient is instructed to return to the emergency department with any new, worsening, or concerning symptoms. Patient verbalized understanding. This case was discussed in detail with the attending ED physician. Presentation, findings, and treatment plan discussed in detail as well. - Lab Data Result diagrams: 04/09/22 21:33 04/09/22 21:33 Lab Results 04/09/22 04/09/22 04/09/22 Range/Units 21:33 21:33 21:33 WBC 4.2 (3.8-10.6) k/uL RBC 3.05 L (4.30-5.90) m/uL Hgb 10.9 L (13.0-17.5) gm/dL Hct 33.2 L (39.0-53.0) % MCV 109.1 H D (80.0-100.0) fL MCH 35.8 H (25.0-35.0) pg MCHC 32.8 (31.0-37.0) g/dL RDW 16.3 H (11.5-15.5) % Plt Count 77 L (150-450) k/uL MPV 7.6 Neutrophils % 36 % Lymphocytes % 52 % Monocytes % 4 % Eosinophils % 3 % Basophils % 0 % Neutrophils # 1.5 (1.3-7.7) k/uL Lymphocytes # 2.2 (1.0-4.8) k/uL Monocytes # 0.2 (0-1.0) k/uL Eosinophils # 0.1 (0-0.7) k/uL Basophils # 0.0 (0-0.2) k/uL Anisocytosis Slight Macrocytosis Marked A ESR 49 H (0-15) mm/hr Sodium 143 (137-145) mmol/L Potassium 3.9 (3.5-5.1) mmol/L Chloride 105 (98-107) mmol/L Carbon Dioxide 23 (22-30) mmol/L Anion Gap 15 mmol/L BUN 5 L (9-20) mg/dL Creatinine 0.38 L (0.66-1.25) mg/dL Est GFR (CKD-EPI)AfAm >90 (>60 ml/min/1.73 sqM) Est GFR (CKD-EPI)NonAf >90 (>60 ml/min/1.73 sqM) Glucose 90 (74-99) mg/dL Calcium 8.2 L (8.4-10.2) mg/dL Total Bilirubin 1.4 H (0.2-1.3) mg/dL AST 102 H (17-59) U/L ALT 27 (4-49) U/L Alkaline Phosphatase 179 H (38-126) U/L C-Reactive Protein 0.9 (<1.0) mg/dL NT-Pro-B Natriuret Pep 55 pg/mL Total Protein 7.3 (6.3-8.2) g/dL Albumin 3.5 (3.5-5.0) g/dL Urine Color Urine Appearance (Clear) Urine pH (5.0-8.0) Ur Specific [place] (1.001-1.035) Urine Protein (Negative) Urine Glucose (UA) (Negative) Urine Ketones (Negative) Urine Blood (Negative) Urine Nitrite (Negative) Urine Bilirubin (Negative) Urine Urobilinogen (<2.0) mg/dL Ur Leukocyte Esterase (Negative) 04/09/22 Range/Units 21:33 WBC (3.8-10.6) k/uL RBC (4.30-5.90) m/uL Hgb (13.0-17.5) gm/dL Hct (39.0-53.0) % MCV (80.0-100.0) fL MCH (25.0-35.0) pg MCHC (31.0-37.0) g/dL RDW (11.5-15.5) % Plt Count (150-450) k/uL MPV Neutrophils % % Lymphocytes % % Monocytes % % Eosinophils % % Basophils % % Neutrophils # (1.3-7.7) k/uL Lymphocytes # (1.0-4.8) k/uL Monocytes # (0-1.0) k/uL Eosinophils # (0-0.7) k/uL Basophils # (0-0.2) k/uL Anisocytosis Macrocytosis ESR (0-15) mm/hr Sodium (137-145) mmol/L Potassium (3.5-5.1) mmol/L Chloride (98-107) mmol/L Carbon Dioxide (22-30) mmol/L Anion Gap mmol/L BUN (9-20) mg/dL Creatinine (0.66-1.25) mg/dL Est GFR (CKD-EPI)AfAm (>60 ml/min/1.73 sqM) Est GFR (CKD-EPI)NonAf (>60 ml/min/1.73 sqM) Glucose (74-99) mg/dL Calcium (8.4-10.2) mg/dL Total Bilirubin (0.2-1.3) mg/dL AST (17-59) U/L ALT (4-49) U/L Alkaline Phosphatase (38-126) U/L C-Reactive Protein (<1.0) mg/dL NT-Pro-B Natriuret Pep pg/mL Total Protein (6.3-8.2) g/dL Albumin (3.5-5.0) g/dL Urine Color Colorless Urine Appearance Clear (Clear) Urine pH 6.5 (5.0-8.0) Ur Specific [place] 1.002 (1.001-1.035) Urine Protein Negative (Negative) Urine Glucose (UA) Negative (Negative) Urine Ketones Negative (Negative) Urine Blood Negative (Negative) Urine Nitrite Negative (Negative) Urine Bilirubin Negative (Negative) Urine Urobilinogen <2.0 (<2.0) mg/dL Ur Leukocyte Esterase Negative (Negative) - Radiology Data Radiology results: report reviewed, image reviewed Disposition Clinical Impression: Dependent edema, Chronic venous insufficiency of lower extremity Disposition: HOME SELF-CARE Instructions (If sedation given, give patient instructions): Peripheral Vascular Disease (ED), Leg Edema (ED), Knee Immobilizer (ED) Additional Instructions: Return to the emergency department with any new, worsening, or concerning sympt oms. Take the Lasix once each day, be aware that this will increase your urine output. Keep your legs elevated as much as possible and consider using compression stockings. Stop taking the Lasix when the swelling has improved or resolved. Contact Dr. Odom, orthopedics, listed below for a follow up to discuss the knee. The rest of the names listed below are primary care providers to contact and become established with. Prescriptions: Furosemide [Lasix] 20 mg PO DAILY #30 tab Is patient prescribed a controlled substance at d/c from ED?: No Referrals: Mark Greene MD [Primary Care Provider] - 1-2 days Tamara Merlos MD [REFERRING] - 1-2 days Joyce Kwan MD [STAFF PHYSICIAN] - 1-2 days Felix Marie Jr, DO [Doctor of Osteopathic Medicine] - 1-2 days eN Rodriguez NPC [STAFF PHYSICIAN] - 1-2 days Emma Louise DO [REFERRING] - 1-2 days Jourdan Osorio MD [STAFF PHYSICIAN] - 1-2 days Mike Odom DO [Doctor of Osteopathic Medicine] - 1-2 days
[2022-04-09 21:37] LABS: Anisocytosis Slight; Basophils % (A) 0 %; Eosinophils # (A) 0.1 k/uL (0-0.7); Eosinophils % (A) 3 %; HCT 33.2 % (39.0-53.0); HGB 10.9 gm/dL (13.0-17.5); Lymphocytes # (A) 2.2 k/uL (1.0-4.8); Lymphocytes % (A) 52 %; MCH 35.8 pg (25.0-35.0); MCHC 32.8 g/dL (31.0-37.0); Macrocytosis Marked; Mean Platelet Volume 7.6; Monocytes # (A) 0.2 k/uL (0-1.0); Monocytes % (A) 4 %; Neutrophils # (A) 1.5 k/uL (1.3-7.7); Neutrophils % (A) 36 %; RBC 3.05 m/uL (4.30-5.90); RDW 16.3 % (11.5-15.5); WBC 4.2 k/uL (3.8-10.6)
[2022-04-09 21:43] LABS: MCV 109.1 fL (80.0-100.0); Platelet Count 77 k/uL (150-450)
[2022-04-09 21:48] LABS: Appearance,Urine Clear (Clear); Bilirubin,Urine Negative (Negative); Blood,Urine Negative (Negative); Color,Urine Colorless; Glucose,Urine (UA) Negative (Negative); Ketones,Urine Negative (Negative); Leukocyte Esterase,Urine Negative (Negative); Nitrite,Urine Negative (Negative); PH, Urine 6.5 (5.0-8.0); Protein,Urine Negative (Negative); Specific Gravity,Urine 1.002 (1.001-1.035); Urobilinogen,Urine <2.0 mg/dL (<2.0)
[2022-04-09 21:49] LABS: ALT 27 U/L (4-49); AST 102 U/L (17-59); African American GFR (CKD) >90 (>60 ml/min/1.73 sqM); Albumin 3.5 g/dL (3.5-5.0); Alkaline Phosphatase 179 U/L (38-126); Anion Gap 15 mmol/L; Blood Urea Nitrogen 5 mg/dL (9-20); C Reactive Protein 0.9 mg/dL (<1.0); Calcium 8.2 mg/dL (8.4-10.2); Carbon Dioxide 23 mmol/L (22-30); Chloride 105 mmol/L (98-107); Glucose 90 mg/dL (74-99); Non-African American GFR(CKD) >90 (>60 ml/min/1.73 sqM); Potassium 3.9 mmol/L (3.5-5.1); Sodium 143 mmol/L (137-145); Total Bilirubin 1.4 mg/dL (0.2-1.3); Total Protein 7.3 g/dL (6.3-8.2)
--- NOTE | 2022-04-09 22:15 | US ---
EXAMINATION TYPE: US venous doppler duplex LE BI DATE OF EXAM: 04/09/2022 8:43 PM COMPARISON: NONE CLINICAL HISTORY: Bilateral LE pain and swelling. Bilateral leg swelling. Patient states he may have twisted his right knee Thursday. SIDE PERFORMED: Bilateral TECHNIQUE: The lower extremity deep venous system is examined utilizing real time linear array sonog crista with graded compression, doppler sonography and color-flow sonography. VESSELS IMAGED: Common Femoral Vein Deep Femoral Vein Greater Saphenous Vein * Femoral Vein Popliteal Vein Small Saphenous Vein * Proximal Calf Veins (* superficial vessels) Right Leg: Negative for DVT Left Leg: Negative for DVT IMPRESSION: Normal exam. No evidence of deep vein thrombosis in both legs.
[2022-04-09 22:22] LABS: Erythrocyte Sedimentation Rate 49 mm/hr (0-15)
[2022-04-09 23:46] VITALS: BP 116/94; PULSE 78; RESP 18
== END 2022-04-09 23:30 | disposition home or self-care (01) ==
LOC: EC 20:03
DX: I87.2 Venous insufficiency (chronic) (peripheral) (principal); J45.909 Unspecified asthma, uncomplicated; I10 Essential (primary) hypertension; Z87.891 Personal history of nicotine dependence; Z88.0 Allergy status to penicillin
CPT/HCPCS: 36415; 80053; 81003; 83880; 85025; 85652; 86140; 93970; 99283

== ENCOUNTER 2022-09-04 21:55 | Emergency (ER) | payer OTHER ==
[2022-09-04 22:03] VITALS: RESP 16; TEMP 97.2
--- NOTE | 2022-09-04 22:59 | XR ---
EXAMINATION TYPE: XR shoulder complete LT DATE OF EXAM: 09/04/2022 COMPARISON: NONE HISTORY: Fall. Pain TECHNIQUE: 3 views FINDINGS: There is impacted comminuted humeral neck fracture. No dislocation. The scapula appears int act. AC joint is intact. IMPRESSION: Acute impacted comminuted humeral neck fracture.
--- NOTE | 2022-09-04 23:08 | CT ---
EXAMINATION TYPE: CT brain valeine wo con DATE OF EXAM: 09/04/2022 COMPARISON: CT brain 12/31/2020 HISTORY: Fall Headache. Neck pain CT DLP: 1399.6 mGycm Automated exposure control for dose reduction was used. Images of brain and cervical spine obtained with no contrast. There is moderate diffuse cerebral atrophy. There is no mass effect or midline shift. No sign of intr acranial hemorrhage. The calvarium is intact. The cervical vertebra show fairly normal alignment. There is mild spurring of the endplates from 4 to C7. There is posterior disc herniation at C6-7. Facet joints are intact. No compression fracture. Pr evertebral soft tissues are intact. There is normal aeration of the mastoid sinuses. IMPRESSION: Moderate cerebral atrophy. No acute intracranial abnormality. No change. Mild spondylotic changes in the cervical spine. No fracture.
--- NOTE | 2022-09-04 23:58 | ED ---
General Adult HPI - General Chief complaint: Fall Stated complaint: fall Time Seen by Provider: 09/04/22 22:06 Source: patient Mode of arrival: EMS Limitations: no limitations - History of Present Illness Initial comments: Patient is a 52-year-old male presenting for evaluation post fall. Patient states that he was trying to change his 's tire when he tripped and fell from a standing position. Patient admits to drinking 8 beers this evening, he is currently intoxicated. He denies any loss of consciousness. Denies blood thinners. He admits to left shoulder pain. He is unable to move the arm. No discoloration. No numbness or tingling. Denies any chest pain, difficulty breathing, palpitations, weakness, abdominal pain, nausea, vomiting, headache, neck pain, vision or hearing changes, dizziness. - Related Data Home Medications Medication Instructions Recorded Confirmed Multivitamin/Iron/Folic Acid 1 tab PO DAILY 12/23/18 04/09/22 [Centrum Adults Tablet] Folic Acid 1 mg PO DAILY 01/07/21 04/09/22 Magnesium Oxide [Mag-Ox] 400 mg PO DAILY 01/07/21 04/09/22 Potassium Chloride ER [K-Dur 10] 10 meq PO DAILY 01/07/21 04/09/22 HYDROcodone/APAP 5-325MG [[place] 1 tab PO DAILY PRN 11/13/21 04/09/22 5-325] Thiamine [Vitamin B-1] 100 mg PO DAILY 11/13/21 04/09/22 Pantoprazole Sodium 40 mg PO DAILY 04/09/22 04/09/22 Previous Rx's Medication Instructions Recorded Furosemide [Lasix] 20 mg PO DAILY #30 tab 04/09/22 Allergies Allergy/AdvReac Type Severity Reaction Status Date / Time Penicillins Allergy Unknown Verified 04/09/22 22:21 Childhood Review of Systems ROS Statement: Those systems with pertinent positive or pertinent negative responses have been documented in the HPI. ROS Other: All systems not noted in ROS Statement are negative. Past Medical History Past Medical History: Asthma, Hypertension Additional Past Medical History / Comment(s): asthma as a child. "blood clots in stool". Diverticulitis. Varicose veins. Fall 11/29/20 w/ FX L2, L3, L4, & FX 3 Ribs; migraines, History of Any Multi-Drug Resistant Organisms: None Reported Past Surgical History: Bowel Resection, Orthopedic Surgery Additional Past Surgical History / Comment(s): lt knee arthrsocopy, rt shoulder reconstructed. Colonoscopy 12/06/20, exp laproscopy Past Anesthesia/Blood Transfusion Reactions: No Reported Reaction Past Psychological History: No Psychological Hx Reported Smoking Status: Former smoker Past Alcohol Use History: Occasional Past Drug Use History: None Reported - Past Family History Mother Family Medical History: Cancer Additional Family Medical History / Comment(s): liver cancer Father Family Medical History: Cancer Additional Family Medical History / Comment(s): colon cancer General Exam Limitations: no limitations General appearance: alert, appears intoxicated Head exam: Present: normocephalic, normal inspection, other (Multiple abrasions to the face) Eye exam: Present: normal appearance, PERRL, EOMI. Absent: scleral icterus, conjunctival injection, periorbital swelling Neck exam: Present: normal inspection, full ROM Respiratory exam: Present: normal lung sounds bilaterally. Absent: respiratory distress, wheezes, rales, rhonchi, stridor Cardiovascular Exam: Present: regular rate, normal rhythm, normal heart sounds. Absent: systolic murmur, diastolic murmur, rubs, gallop, clicks Neurological exam: Present: alert, altered, CN II-XII intact Psychiatric exam: Present: normal affect, normal mood Skin exam: Present: warm, dry, intact, normal color. Absent: rash Course Vital Signs 09/04/22 09/05/22 21:57 00:10 Temperature 97.2 F L Pulse Rate 85 95 Respiratory 16 16 Rate Blood Pressure 129/88 124/83 O2 Sat by Pulse 95 95 Oximetry Medical Decision Making - Medical Decision Making Was pt. sent in by a medical professional or institution (, PA, INVENTORY AUDITOR, urgent care, hospital, or [place] health care facility...) When possible be specific @ -[No] Did you speak to anyone other than the patient for history (EMS, parent, family, police, friend...)? What history was obtained from this source @ -[No] Did you review nursing and triage notes (agree or disagree)? Why? @ -[I reviewed and agree with nursing and triage notes] Were old charts reviewed (outside hosp., previous admission, EMS record, old EKG, old radiological studies, urgent care reports/EKG's, [place] health care facility records)? Report findings @ -[No old charts were reviewed] Differential Diagnosis (chest pain, altered mental status, abdominal pain women, abdominal pain men, vaginal bleeding, weakness, fever, dyspnea, syncope, headache, dizziness, GI bleed, back pain, seizure, CVA, palpatations, mental health)? @ -Differential includes closed head injury, concussion, fracture, hemorrhage EKG interpreted by me (3pts min.). @ -[As above] X-rays interpreted by me (1pt min.). @ -Comminuted fracture of the humeral neck CT interpreted by me (1pt min.). @ -No, radiologist report was reviewed. No acute intracranial process or fracture of the cervical spine U/S interpreted by me (1pt. min.). @ -[None done] What testing was considered but not performed or refused? (CT, X-rays, U/S, labs)? Why? @ -[None] What meds were considered but not given or refused? Why? @ -[None] Did you discuss the management of the patient with other professionals (professionals i.e. , PA, INVENTORY AUDITOR, lab, RT, psych nurse, clinical social worker, hand singer, teacher, drug abuse resistance education officer, case management specialist)? Give summary @ -[No] Was smoking cessation discussed for >3mins.? @ -[No] Was critical care preformed (if so, how long)? @ -[No] Were there social determinants of health that impacted care today? How? (Homelessness, low income, unemployed, alcoholism, drug addiction, transportation, low edu. Level, literacy, decrease access to med. care, skilled nursing, rehab)? @ -[No] Was there de-escalation of care discussed even if they declined (Discuss DNR or withdrawal of care, Hospice)? DNR status @ -[No] What co-morbidities impacted this encounter? (DM, HTN, Smoking, COPD, CAD, Cancer, CVA, ARF, Chemo, Hep., AIDS, mental health diagnosis, sleep apnea, morbid obesity)? @ -[None] Was patient admitted / discharged? Hospital course, mention meds given and rout e, prescriptions, significant lab abnormalities, going to OR and other pertinent info. @ -Patient is a 52-year-old male presenting with chief complaint of head injury. Patient states he tripped and fell this evening from a standing position. Patient has had 8 beers this evening which he states he does regularly. Denies any loss of consciousness or blood thinners. He admits to left shoulder pain. No chest pain, difficulty breathing, abdominal pain, headache, neck pain, vision or hearing changes, dizziness, nausea, vomiting. On physical examination there are no focal neurological deficits. There is tenderness to the left shoulder and patient is unable to move the arm. X-ray shows impacted comminuted fracture of the humeral neck. Not dislocated. CT shows no acute intracranial process or fracture of the cervical spine. Patient is placed in shoulder immobilizer and instructed to follow up with orthopedics. Patient has previously followed with Dr. Nagel. Educated on supportive treatment. Discharged home. Follow-up with PCP. Report back to ER with any new or worsening symptoms. Discussed return parameters and answered all questions. Patient conveyed verbal understanding and agreed to the plan. I discussed this case in detail with my attending Dr. Henderson Undiagnosed new problem with uncertain prognosis? @ -[No] Drug Therapy requiring intensive monitoring for toxicity (Heparin, Nitro, Insulin, Cardizem)? @ -[No] Were any procedures done? @ -[No] Diagnosis/symptom? @ -Humeral neck fracture Acute, or Chronic, or Acute on Chronic? @ -Acute Uncomplicated (without systemic symptoms) or Complicated (systemic symptoms)? @ -Uncomplicated Side effects of treatment? @ -[No] Exacerbation, Progression, or Severe Exacerbation? @ -[No] Poses a threat to life or bodily function? How? (Chest pain, [place], [place], pneumonia, PE, COPD, DKA, ARF, appy, cholecystitis, CVA, Diverticulitis, Homicidal, Suicidal, threat to staff... and all critical care pts) @ -[No] Disposition Clinical Impression: Fracture of neck of humerus Disposition: HOME SELF-CARE Condition: Good Instructions (If sedation given, give patient instructions): Head Injury (ED), Proximal Humerus Fracture (ED) Additional Instructions: Follow up with orthopedics. Report back to ER with any new or worsening symptoms. Take Motrin and Tylenol as needed for pain control. Keep arm in immobilizer. Is patient prescribed a controlled substance at d/c from ED?: No Referrals: Mark Greene MD [Primary Care Provider] - 1-2 days Fadia Nagel DO [Doctor of Osteopathic Medicine] - 1-2 days Time of Disposition: 23:55
[2022-09-05 00:12] VITALS: BP 124/83; PULSE 95
== END 2022-09-05 01:05 | disposition home or self-care (01) ==
LOC: EC 21:55
DX: S42.352A Displaced comminuted fracture of shaft of humerus, left arm, initial encounter for closed fracture (principal); J45.909 Unspecified asthma, uncomplicated; I10 Essential (primary) hypertension; Z88.0 Allergy status to penicillin; Z87.891 Personal history of nicotine dependence; W01.0XXA Fall on same level from slipping, tripping and stumbling without subsequent striking against object, initial encounter; Y93.89 Activity, other specified
CPT/HCPCS: 73030; 72125; 70450; 99284; L3670

== ENCOUNTER → 2022-09-15 | Outpatient (CLI) | payer OTHER ==
--- NOTE | 2022-09-15 20:59 | CT ---
EXAMINATION TYPE: CT shoulder LT wo con CT DLP: 251.0 mGycm, Automated exposure control for dose reduction was used. DATE OF EXAM: 09/15/2022 7:30 PM COMPARISON: Extremity radiograph 09/10/2022 CLINICAL INDICATION:Male, 52 years old with history of S42.232A;, Acute impacted comminuted humeral n temi fracture. TECHNIQUE: Axial images were obtained of the left shoulder. Additional coronal and sagittal reformat aydin images and soft tissue and bone window were obtained for review. 3-D reconstruction was created o n a separate workstation. Contrast used: None Oral contrast used: None FINDINGS: Diffuse osseous demineralization is present. Comminuted proximal left humerus fracture involving the surgical and anatomic neck. Multiple fragments are identified with fracture line thought to be extend ing towards the joint surface and multiple areas. Displacement of multiple fragments is also present. Degeneration changes of the glenoid with subchondral cystic changes noted. There is soft tissue swel ling around the shoulder with joint effusion present. IMPRESSION: 1. Acute comminuted fracture with questionable intra-articular extension of the proximal left humeru s. No additional fractures identified. 2. Degeneration changes of the elim ira glenoid and humeral head.
== END | disposition home or self-care (01) ==
LOC: RADCTMAIN 18:55
PROVIDERS: ATTEND Orthopaedic Surgery
DX: S42.232A 3-part fracture of surgical neck of left humerus, initial encounter for closed fracture (principal); M19.012 Primary osteoarthritis, left shoulder

== ENCOUNTER → 2022-11-06 | Outpatient (CLI) | payer OTHER ==
[2022-11-06 14:57] LABS: Basophils # (A) 0.01 X 10*3/uL (0.00-0.10); Basophils % (A) 0.3 %; Eosinophils # (A) 0.12 X 10*3/uL (0.04-0.35); Eosinophils % (A) 3.2 %; HCT 32.3 % (39.6-50.0); HGB 9.6 g/dL (13.0-17.0); Immature Grans, Automated 0 %; Lymphocytes # (A) 1.72 X 10*3/uL (0.90-5.00); Lymphocytes % (A) 45.3 %; MCH 28.9 pg (27.0-32.0); MCHC 29.7 g/dL (32.0-37.0); MCV 97.3 fL (80.0-97.0); Mean Platelet Volume 9.9 fL (9.5-12.2); Monocytes # (A) 0.63 X 10*3/uL (0.20-1.00); Monocytes % (A) 16.6 %; NRBC Per 100 WBC 0 /100 WBCS (0.0-0.0); Neutrophils # (A) 1.32 X 10*3/uL (1.80-7.70); Neutrophils % (A) 34.6 %; Platelet Count 165 X 10*3/uL (140-440); RBC 3.32 X 10*6/uL (4.40-5.60); RDW 18.2 % (11.5-14.5)
[2022-11-06 15:47] LABS: Albumin 3.1 g/dL (3.8-4.9); Albumin/Globulin Ratio 0.9 (1.60-3.17); Anion Gap 9.3 mmol/L (10.00-18.00); BUN/Creat Ratio 7.47 Ratio (12.00-20.00); Blood Urea Nitrogen 4.5 mg/dL (9.0-27.0); Carbon Dioxide 25.3 mmol/L (20.0-27.5); Globulin 3.4 g/dL (1.6-3.3); Non-African American GFR(CKD) 113.9 (60.0-200.0); Potassium 4.2 mmol/L (3.5-5.5); Total Bilirubin 1.6 mg/dL (0.30-1.20); Total Protein 6.4 g/dL (6.2-8.2)
== END | disposition home or self-care (01) ==
LOC: LABWHC1 09:29
PROVIDERS: ATTEND Nurse Practitioner Family
DX: K70.30 Alcoholic cirrhosis of liver without ascites (principal)
CPT/HCPCS: 36415; 80053; 85025

== ENCOUNTER → 2023-04-03 | Outpatient (CLI) | payer OTHER ==
[2023-04-03 15:52] LABS: Basophils # (A) 0.02 X 10*3/uL (0.00-0.10); Basophils % (A) 0.2 %; Eosinophils # (A) 0.03 X 10*3/uL (0.04-0.35); Eosinophils % (A) 0.4 %; HCT 33.2 % (39.6-50.0); Lymphocytes # (A) 2.63 X 10*3/uL (0.90-5.00); Lymphocytes % (A) 32.6 %; MCH 28.7 pg (27.0-32.0); MCHC 30.1 d/dL (32.0-37.0); MCV 95.4 FL (80.0-97.0); Mean Platelet Volume 9.1 FL (9.5-12.2); Monocytes # (A) 0.96 X 10*3/uL (0.20-1.00); Monocytes % (A) 11.9 %; NRBC Per 100 WBC 0 X 10*3/uL (0.00-0.01); Neutrophils # (A) 4.42 X 10*3/uL (1.80-7.70); Neutrophils % (A) 54.8 %; Platelet Count 190 X 10*3/uL (140-440); RBC 3.48 X 10*6/uL (4.40-5.60); RDW 17.4 % (11.5-14.5); WBC 8.07 X 10*3/uL (4.50-10.00)
[2023-04-03 16:14] LABS: ALT 26 U/L (10-49); AST 41 U/L (14-35); Albumin 3.8 d/dL (3.8-4.9); Albumin/Globulin Ratio 1.27 Ratio (1.60-3.17); Alkaline Phosphatase 151 U/L (41-126); BUN/Creat Ratio 11.29 Ratio (12.00-20.00); Blood Urea Nitrogen 7.9 mg/dL (9.0-27.0); Chloride 106 mmol/L (96-109); Glucose 94 mg/dL (70-110); Potassium 3.9 mmol/L (3.5-5.5); Sodium 140 mmol/L (135-145); Total Bilirubin 0.6 mg/dL (0.3-1.2); Total Protein 6.8 d/dL (6.2-8.2)
== END | disposition home or self-care (01) ==
LOC: LABWHC1 09:32
PROVIDERS: ATTEND Internal Medicine Gastroenterology
DX: K70.30 Alcoholic cirrhosis of liver without ascites (principal)
CPT/HCPCS: 36415; 80053; 82105; 85025